=== PATIENT | female | born 1955 | race Caucasian/White ===

== ENCOUNTER 2024-11-05 09:42 | Inpatient (IN) | payer MEDICARE, MEDICAID ==
[~2024-11-05] VITALS: Ht 172.7 cm; Wt 92.7 kg
[~2024-11-05 09:42] MED LIST: ASPI81CH43 GT; ASPI81CH59 PO; ATEN-60 OR; ATEN25TA PO; BUDE160A3 IN; CARI-579 PO; CYAN100088 PO; CYCL-181 GT; EVOL140I2 SC; FURO40TA4 OR; GAB100C PO; GLYB5TAB8 PO; HYDR-1421 OR; IBUP-1455 PO; IBUP-1456 OR; INSU1INJ19 SC; LORA2TAB89 OR; MAGN400T6 PO; MET50T PO; METF-372 PO; OMEP1CAP70 PO; OMEP20TA37 OR; POTA-180 PO; TIRZ12.5 SC; VARE1TAB11 PO
--- NOTE | 2024-11-05 09:48 | ED.PDOC ---
History of Present Illness HPI Comments 69 y.o female with PMHx of COPD, CHF, pulmonary edema, DM, HTN, presents to the ED via EMS for a chief complaint of ongoing generalized weakness. Patient is unable to recall when weakness presented but does mention recently unable to ambulate without assistance. Patient denies any chest pain, SOB, fever, chills, or dysuria. Time Seen by MD: 09:43 Reviewed Notes: Nurses Notes, Rolled Glass Crosscutter Notes, Medications, Allergies Allergies: Coded Allergies: NO KNOWN ALLERGIES (Unverified , 01/30/10) Home Meds Reported Medications Furosemide (Furosemide) 40 Mg Tab, 40 MG OR QAM 12/24/11 Aspirin (Asa) 81 Mg Ch, 81 MG GT QAM 12/24/11 Ibuprofen (Ibuprofen) 800 Mg Tab, 800 MG OR HS 12/24/11 Hydrocodone-Acetaminophen (Vicodin) 1 Tab Tab, 1 TAB OR Q4HP 01/31/10 Lorazepam (Ativan) 2 Mg Tab, 2 MG OR PRN 01/31/10 Cyclobenzaprine Hcl (Flexeril) 10 Mg Tb, 10 MG GT PRN 01/31/10 Budesonide-Formoterol Fumarate (Symbicort) 1 Aer Aer, 1 AER IN PRN 01/31/10 Omeprazole (Sm Omeprazole) 20 Mg Tab, 20 MG OR BID 01/31/10 Atenolol (Atenolol) 25 Mg Tab, 25 MG OR BID 01/31/10 Information Source: Patient, Emergency Med Personnel Mode of Arrival: EMS Severity: Moderate Timing: Came on: Gradually Duration: Since onset Past Medical History PAST MEDICAL HISTORY: CHF, COPD, DM, HTN GILL NET 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 History: No Pertinent GILL NET STRINGER History Family History Family History: Reviewed,noncontributory to illness Social History Smoker: Non-Smoker Alcohol: Denies ETOH Use Drugs: Denies Drug Use Lives In: Home Constitutional: reports: weakness; denies: chills, diaphoresis, fatigue, fever, malaise, sweats, others EENTM: denies: blurred vision, double vision, ear bleeding, ear discharge, ear drainage, ear pain, ear ringing, eye pain, eye redness, hearing loss, mouth pain, mouth swelling, nasal discharge, nose bleeding, nose congestion, nose pain, photophobia, tearing, throat pain, throat swelling, voice changes, others Respiratory: denies: cough, hemoptysis, orthopnea, SOB at rest, shortness of breath, SOB with excertion, stridor, wheezing, others Cardiovascular: denies: chest pain, dizzy spells, diaphoresis, Dyspnea on exertion, edema, irregular heart beat, left arm pain, lightheadedness, palpitations, PND, syncope, others Gastrointestinal: denies: abdomen distended, abdominal pain, blood streaked bowels, constipated, diarrhea, dysphagia, difficulty swallowing, hematemesis, melena, nausea, poor appetite, poor fluid intake, rectal bleeding, rectal pain, vomiting, others Genitourinary: denies: abnormal vagina bleeding, burning, dyspareunia, dysuria, flank pain, frequency, hematuria, incontinence, pain, , vagina discharge, urgency, others Neurological: denies: dizziness, fainting, headache, left sided numbness, left sided weakness, numbness, paresthesia, pre-existing deficit, right sided numbness, right sided weakness, seizure, speech problems, tingling, tremors, weakness, others Musculoskeletal: denies: back pain, gout, joint pain, joint swelling, muscle pain, muscle stiffness, neck pain, others Integumetry: denies: bruises, change in color, change in hair/nails, dryness, laceration, lesions, lumps, rash, wounds, others Allergic/Immunocompromised: denies: Difficulty Healing, Frequent Infections, Hives, Itching, others Hematologic/Lymphatic: denies: anemia, blood clots, easy bleeding, easy bruising, swollen glands, others Endocrine: denies: excessive hunger, excessive sweating, excessive thirst, excessive urination, flushing, intolerance to cold, intolerance to heat, unexplained weight gain, unexplained weight loss, others Psychiatric: denies: anxiety, bipolar disorder, depression, hopeless, panic disorder, schizophrenia, sleepless, suicidal, others All Other Systems: Reviewed and Negative Physical Exam General Appearance: Moderate Distress HEENT: Normal ENT Inspection, Pharynx Normal, TMs Normal Neck: Full Range of Motion, Non-Tender, Normal, Normal Inspection Respiratory: Other (Coarse breath sounds) Cardiovascular: No Edema, No JVD, No Murmur, No Gallop, Normal Peripheral Pulses, Tachycardia Breast Exam: Deferred Gastrointestinal: No Organomegaly, Non Tender, No Pulsatile Mass, Normal Bowel Sounds, Soft Genitalia: Deferred Pelvic: Deferred Rectal: Deferred Extremities: No calf tenderness, No pedal edema Musculoskeletal : Apperance: Normal Neurologic: Alert, No Motor Deficits, No Sensory Deficits Cerebellar Function: NOT DONE Reflexes: NOT DONE Skin: Dry, Normal Color, Warm Peripheral Pulses: 3+ Radial (R), 3+ Radial (L) Lymphatic: No Adenopathy Was a procedure done? Was a procedure done?: No EKG EKG : Pulse Rate (adult): 119 Cardiac Rhythm: ST Differential Dx Considerations may include: Sepsis, UTI, Pneumonia, Dehydration, Electrolyte imbalance X-Ray, Labs, Meds, VS Vital Signs Date Time Temp Pulse Resp B/P (MAP) Pulse Ox O2 Delivery O2 Flow Rate FiO2 11/05/24 09:56 97.6 122 14 119/90 (100) 100 97.6 Lab Test 11/05/24 10:25 11/05/24 10:15 11/05/24 09:55 Range/Units White Blood Count Pending Red Blood Count Pending Hemoglobin Pending Hematocrit Pending Mean Corpuscular Volume Pending Mean Corpuscular Hemoglobin Pending Mean Corpuscular Hemoglobin Concent Pending Red Cell Distribution Width Pending Platelet Count Pending Mean Platelet Volume Pending Neutrophils (%) (Auto) Pending Lymphocytes (%) (Auto) Pending Monocytes (%) (Auto) Pending Basophils (%) (Auto) Pending Neutrophils # (Auto) Pending Lymphocytes # (Auto) Pending Monocytes # (Auto) Pending Sodium Level Pending Potassium Level Pending Chloride Level Pending Carbon Dioxide Level Pending Anion Gap Pending Blood Urea Nitrogen Pending Creatinine Pending Glomerular Filtration Rate Calc Pending BUN/Creatinine Ratio Pending Serum Glucose Pending Lactic Acid Level Pending Calcium Level Pending Troponin I High Sensitivity Pending B-Type Natriuretic Peptide Pending Urine Color Yellow Yellow Urine Clarity Clear Clear Urine pH 5.5 5.0-9.0 Urine Specific [place] 1.021 1.001-1.035 Urine Protein Trace H Negative Urine Ketones Trace Negative Urine Blood Negative Negative /uL Urine Nitrite Negative Negative Urine Bilirubin Negative Negative Urine Urobilinogen Normal Negative mg/dL Urine Leukocyte Esterase Negative Negative /uL Urine RBC None seen 0 - 4 /hpf Urine Microscopic WBC 1 0-5 /HPF Urine Squamous Epithelial Cells None seen <5 /hpf Urine Bacteria None seen None Seen /hpf Urine Hyaline Casts Mod 0 - 2 /lpf Urine Glucose 3+ H Normal mg/dL POC Glucose 496 *H 70-106 mg/dl Current Medications Medications (Trade) Dose Ordered Sig/Purvi Route Start Time Stop Time Status Last Admin Piperacillin Sod/ Tazobactam Sod 100 ml @ 100 mls/hr ONCE ONCE IV 11/05/24 09:45 11/05/24 10:44 11/05/24 10:23 Sodium Chloride 1,000 ml @ 1,000 mls/hr Q1H ONCE IV 11/05/24 09:45 11/05/24 10:44 11/05/24 10:16 Insulin Human Regular (InsuLIN R) 10 units ONCE ONCE IV 11/05/24 10:15 11/05/24 10:16 DC 11/05/24 10:19 Patient alert. Blood sugar elevated. Tachycardia. Placed on oxygen. Sepsis protocol. Was given Zosyn. Establish intravenous access. Was given fluids. History of CHF. Monitor carefully. EKG does show tachycardia. Was given insulin. Reviewed her history. Explained to the patient. Continue monitoring. Time of 1ST Reevaluation: 09:48 Reevaluation 1ST: Unchanged Patient Education/Counseling: Diagnosis, Treatment, Prognosis Family Education/Counseling: No Family Present Departure 1 Departure Time of Disposition: 10:39 Impression: Primary Impression: Sepsis Qualified Codes: A41.9 - Sepsis, unspecified organism Additional Impression: Pneumonia Qualified Codes: J18.9 - Pneumonia, unspecified organism Disposition: ADMITTED INPATIENT Admit to: Med Surg Condition: Guarded Critical Care Note Critical Care Time?: Yes (90 min-critical care time only) Critical care comment: Placed on oxygen Stability Stability form required: No I personally scribed for TRES MARKS MD ([email or web address]) on 11/05/24 at 09:48. Electronically submitted by Adelina Patricio ([facility]). TERS MARKS MD Nov 05, 2024 09:48
--- NOTE | 2024-11-05 10:02 | ECG ---
[facility] Test Date: 2024-11-05 Test Time: 09:43:24 Pat Name: LORENA PFEIFFER Department: ED Room: 0294 Gender: F Clinical Nurse Leader: gp : [phone] Requested By: TRES MARKS Order Number: [id number] Reading MD: Stuart Kay Measurements Intervals [place] Rate: 119 P: 0 MS: 0 QRS: 21 QRSD: 96 T: 40 QT: 318 QTc: 448 Interpretive Statements Atrial fibrillation Artifact in lead(s) I,aVF,V1,V2,V3,V4,V5,V6 Electronically Signed On 11-08-2024 12:56:32 PDT by Stuart Kay Please click the below link to view image of tracing.
[2024-11-05] MEDS: SODIUM CHLORIDE 0.9% 1,000 ML IV ONE ×2 (10:16→11:29)
[2024-11-05] MEDS: InsuLIN REG 1unit/0.01ml Soln (100units/ml) IV ONE (10:19)
[2024-11-05 10:21] LABS: Urine Bacteria None Seen /hpf (None Seen)
[2024-11-05] MEDS: PIPERACILLIN-TAZOB 3.375GM 100 ML IV ONE (10:23)
[2024-11-05 10:30] LABS: Urine Blood Negative /uL (Negative); Urine Clarity Clear (Clear); Urine Color Yellow (Yellow); Urine Hyaline Cast MOD /lpf (0 - 2); Urine Protein, UAD TRACE (Negative); Urine Specific Gravity 1.021 (1.001-1.035); Urine Squamous Epithelial Cell None Seen /hpf (<5); Urine Urobilinogen Normal (Negative); Urine WBC 1 /HPF (0-5); Urine pH 5.5 (5.0-9.0)
[2024-11-05 10:40] VITALS: PULSE 120; RESP 28; O2SAT 96
[2024-11-05 10:40] LABS: Basophils # (auto) 0.1 10 ^3/uL (0-0.2); Basophils % (auto) 0.2 % (0.0-2.0); Eosinophils # (auto) 0 10 ^3/uL (0-0.8); Hematocrit 46.2 % (36.0-46.0); Hemoglobin 15.6 g/dL (12.2-16.2); Lymphocytes # (auto) 1.1 10 ^3/uL (0.4-5.4); Lymphocytes % (auto) 4.3 % (10.0-50.0); Mean Corpuscular Hgb Conc. 33.8 g/dL (32.0-36.0); Mean Corpuscular Volume 91.9 fL (80.0-100.0); Monocytes # (auto) 0.5 10 ^3/uL (0-1.3); Monocytes % (auto) 2.1 % (0.0-12.0); Neutrophils # (auto) 23.6 10 ^3/uL (1.6-8.6); Neutrophils % (auto) 93.4 % (37.0-80.0); Nucleated Red Blood Cells % 0.1 %; Platelet Count (auto) 379 10^3/uL (140-450); Red Blood Cells 5.03 10^6/uL (4.0-5.20); Red Cell Distribution Width 13.6 % (11.8-14.3); White Blood Cell 25.3 10^3/uL (4.4-10.8)
[2024-11-05 10:47] LABS: Potassium 3.7 mmol/L (3.5-5.1)
[2024-11-05 10:48] LABS: Anion Gap 14 (5-15); Carbon Dioxide 23 mmol/L (20-31)
[2024-11-05 10:49] LABS: Calcium 9.9 mg/dL (8.7-10.4)
[2024-11-05 10:54] LABS: BUN/Creatinine Ratio 35.7 (10.0-20.0)
[2024-11-05 10:58] LABS: Chloride 93 mmol/L (98-107); Lactic Acid w/Reflex 3.9 mmol/L (0.4-2.0); Sodium 130 mmol/L (136-145)
[2024-11-05 10:59] LABS: Blood Urea Nitrogen 60 mg/dL (9-23); Glucose 489 mg/dL (74-106)
[2024-11-05] MEDS ORDERED: INSULIN LANTUS (GLARGINE) 1 /0.01ml (100units/ml) SC ONE (11:00)
[2024-11-05] MEDS ORDERED: INSULIN DRIP 100 UNIT/100ML 100 ML IV SCH (11:00)
[2024-11-05] MEDS ORDERED: DEXTROSE (50%) 50ML SYRG IV PRN ×2 (11:00→11:30)
[2024-11-05] MEDS: AZITHROMYCIN 500MG/ 250ML 250 ML IV ONE (11:22)
[2024-11-05] MEDS ORDERED: ACCU-CHEK COMFORT CURVE STRIP VI SCH (12:00)
[2024-11-05] MEDS: ACCU-CHEK COMFORT CURVE STRIP VI SCH (12:16)
--- NOTE | 2024-11-05 12:19 | DVH ---
CHEST RADIOGRAPH Indication: sob Technique: Single frontal view of the chest was obtained COMPARISON: None FINDINGS: Lines and Tubes: None Lungs: Mild bilateral patchy airspace disease. Pleura: No effusion. No pneumothorax. Cardiomediastinal contours: Enlarged Bones: Cervical fixation hardware. IMPRESSION: 1. Mild diffuse pulmonary edema with multifocal pneumonia not excluded.
[2024-11-05] MEDS: InsuLIN REG 1unit/0.01ml Soln (100units/ml) SC SCH (12:20)
[2024-11-05] MEDS: HYDROcodone-ACET 10/325MG TAB PO ONE (13:13)
[2024-11-05] MEDS ORDERED: HYDROcodone-ACET 5/325MG TAB PO PRN (14:15)
[2024-11-05] MEDS: ENOXAPARIN SOD 40 MG/0.4 ML SYRINGE SC SCH (14:17)
[2024-11-05] MEDS ORDERED: NITROGLYCERIN 0.4 MG SL TAB SL PRN (14:30)
[2024-11-05] MEDS ORDERED: MORPHINE SULFATE INJ 2 MG/ml SYRG IV PRN (14:30)
[2024-11-05] MEDS ORDERED: ATOR40TA52 PO (15:38)
[2024-11-05] MEDS ORDERED: LOS25T PO (15:38)
--- NOTE | 2024-11-05 15:39 | DVHHP2 ---
History of Present Illness Reason for Visit: Diabetic ketoacidosis History of Present Illness Patient Patient is a 69 year old female who presented to the ED via EMS with chief complaint of generalized weakness and nausea. Patient denies chest pain, shortness of breath, fever, chills, dysuria. Patient was tachycardic upon ar rival, with negative troponins. Patient was recently admitted to [facility] 2 weeks prior to this admission for chest pain and shortness of breath, patient had echocardiogram at that time which showed EF 65%, normal RV size and function, AV and MV no significant or MS. Trace TR, 35 mmHg. With trivial pericardial effusion. Last Lexiscan 03/12/2021 which showed normal LV perfusion with an EF of 56%. Patient's blood sugars were also running high on her last admission at [facility], but she was also on steroids at that time. Patient is being admitted to telemetry for diabetic ketoacidosis. Past Medical History COPD, diabetes mellitus, peripheral neuropathy, hypertension, hyperlipidemia, COPD, diverticulosis, kidney stones, migraine, MINOO, GERD Past Surgical History Hysterectomy Family History Denies Smoke: Quit ALCOHOL: none Drugs: None Lives: Other (Home) Review of Systems Constitutional: Yes: Weakness (Generalized); No: Fever, Chills, Sweats, Malaise, Other Eyes: No: Pain, Vision change, Conjunctivae inflammation, Eyelid inflammation, Other, Redness ENT: No: Ear pain, Ear discharge, Nose pain, Nose discharge, Nose congestion, Mouth pain, Mouth swelling, Throat pain, Throat swelling, Other Respiratory: No: Cough, Dry, Shortness of breath, SOB with excertion, Wheezing, Hemoptysis, Pleuritic Pain, Sputum, Wheezing, Other Cardiovascular: No: Chest Pain, Palpitations, Orthopnea, Paroxysmal Noc. Dyspnea, Edema, Lt Headedness, Other Gastrointestinal: Nausea; No: Vomiting, Abdominal Pain, Diarrhea, Constipation, Melena, Hematochezia, Other Genitourinary: No Dysuria, No Frequency, No Incontinence, No Hematuria, No Retention, No Other Musculoskeletal: leg pain (Bilateral lower extremity pain); No: other, neck pain, shoulder pain, arm pain, back pain, hand pain, foot pain Skin: No: Rash, Lesions, Jaundice, Bruising, Other Neurological: No: Weakness, Numbness, Incoordination, Change in speech, Confusion, Seizures, Other Allergies: Coded Allergies: NO KNOWN ALLERGIES (Unverified , 01/30/10) Medications Current Medications Medications Dose Ordered Sig/Purvi Route Start Time Stop Time Status Last Admin Dose Admin Diagnostic Test (Pha) 1 strip IQ4HR 11/05/24 12:00 11/05/24 12:16 1 STRIP Insulin Human Regular IQ4HR SC 11/05/24 12:00 11/05/24 12:20 16 UNITS Dextrose 50 ml UD PRN IV 11/05/24 11:30 Enoxaparin Sodium 40 mg DAILY SC 11/05/24 14:15 11/05/24 14:17 40 MG Morphine Sulfate 2 mg Q4HPRN PRN IV 11/05/24 14:15 Ondansetron HCl 4 mg Q4HPRN PRN IV 11/05/24 14:15 Acetaminophen/ Hydrocodone Bitart 1 tab Q6HPRN PRN PO 11/05/24 14:15 Nitroglycerin 0.4 mg Q5MINP PRN SL 11/05/24 14:30 Morphine Sulfate 2 mg Q30M PRN IV 11/05/24 14:30 Exam Vital Signs Vital Signs Date Time Temp Pulse Resp B/P (MAP) Pulse Ox O2 Delivery O2 Flow Rate FiO2 11/05/24 14:00 98.6 116 25 120/68 (85) 99 98.6 11/05/24 10:40 Nasal Cannula* 6 44 General Appearance: Alert, Oriented X3, Cooperative, No acute distress HEENT: Atraumatic, PERRLA, EOMI, Mucous membr. moist/pink Respiratory: Clear to auscultation, Normal air movement Cardiovascular: Regular rate, Normal S1, Normal S2, No murmurs Abdominal: Normal bowel sounds, Soft, No tenderness, No hepatospenomegaly, No masses Extremities: No clubbing, No cyanosis, No edema, Normal pulses, Other (Lower extremity pain from neuropathy) Skin: No rashes, No breakdown, No significant lesion Neuro: Normal gait, Normal speech, Strength at 5/5 X4 ext, Normal tone, Sensation intact, Cranial nerves 3-12 NL, Reflexes 2+ Psych/Mental Status: Mental status NL, Mood NL Labs/Xrays Labs and imaging reviewed Labs Test 11/05/24 13:02 11/05/24 12:15 11/05/24 10:25 11/05/24 10:15 Range/Units Lactic Acid Level 2.9 *H 0.4-2.0 mmol/L Troponin I High Sensitivity 28 </=34 ng/L POC Glucose 334 H 70-106 mg/dl White Blood Count 25.3 H 4.4-10.8 10^3/uL Red Blood Count 5.03 4.0-5.20 10^6/uL Hemoglobin 15.6 12.2-16.2 g/dL Hematocrit 46.2 H 36.0-46.0 % Mean Corpuscular Volume 91.9 80.0-100.0 fL Mean Corpuscular Hemoglobin 31.0 28.0-32.0 pg Mean Corpuscular Hemoglobin Concent 33.8 32.0-36.0 g/dL Red Cell Distribution Width 13.6 11.8-14.3 % Platelet Count 379 140-450 10^3/uL Mean Platelet Volume 9.1 6.9-10.8 fL Neutrophils (%) (Auto) 93.4 H 37.0-80.0 % Lymphocytes (%) (Auto) 4.3 L 10.0-50.0 % Monocytes (%) (Auto) 2.1 0.0-12.0 % Eosinophils (%) (Auto) 0.0 0.0-7.0 % Basophils (%) (Auto) 0.2 0.0-2.0 % Neutrophils # (Auto) 23.6 H 1.6-8.6 10 ^3/uL Lymphocytes # (Auto) 1.1 0.4-5.4 10 ^3/uL Monocytes # (Auto) 0.5 0-1.3 10 ^3/uL Eosinophils # (Auto) 0 0-0.8 10 ^3/uL Basophils # (Auto) 0.1 0-0.2 10 ^3/uL Nucleated Red Blood Cells 0.1 % Sodium Level 130 L 136-145 mmol/L Potassium Level 3.7 3.5-5.1 mmol/L Chloride Level 93 L 98-107 mmol/L Carbon Dioxide Level 23 20-31 mmol/L Anion Gap 14 5-15 Blood Urea Nitrogen 60 H 9-23 mg/dL Creatinine 1.68 H 0.550-1.02 mg/dL Glomerular Filtration Rate Calc 33 >90 mL/min BUN/Creatinine Ratio 35.7 H 10.0-20.0 Serum Glucose 489 *H 74-106 mg/dL Calcium Level 9.9 8.7-10.4 mg/dL B-Type Natriuretic Peptide 177.86 0-100 pg/mL Beta-Hydroxybutyric Acid 3.541 H < 0.4 mmol/L Urine Color Yellow Yellow Urine Clarity Clear Clear Urine pH 5.5 5.0-9.0 Urine Specific [place] 1.021 1.001-1.035 Urine Protein Trace H Negative Urine Ketones Trace Negative Urine Blood Negative Negative /uL Urine Nitrite Negative Negative Urine Bilirubin Negative Negative Urine Urobilinogen Normal Negative mg/dL Urine Leukocyte Esterase Negative Negative /uL Urine RBC None seen 0 - 4 /hpf Urine Microscopic WBC 1 0-5 /HPF Urine Squamous Epithelial Cells None seen <5 /hpf Urine Bacteria None seen None Seen /hpf Urine Hyaline Casts Mod 0 - 2 /lpf Urine Glucose 3+ H Normal mg/dL Assessment/Plan Assessment/Plan Diabetic ketoacidosis Lactic acid trending down Anion gap 14 Blood sugars now in the 300s Accu-Cheks q.4 hours on aggressive scale x 12 hrs IV fluids Replace potassium p.r.n. Monitor I&Os/Stauffer in place Acute on chronic hypoxic respiratory failure/COPD Continue supplemental oxygen to keep SpO2 greater than 90% Nebulized meds p.r.n. Pulmonary edema versus pneumonia On antibiotics Rule out sepsis Blood cultures pending UA negative Sinus tachycardia Consult patient's telephone station repairer/Ana/Long Repeated EKG/sinus tach with PACs Resume patient's home medications Plan discussed with: Patient My Orders Orders - MADDIE RHODES Procedure Category Date Status Time Electrocardigram EKG 11/05/24 Logged 14:07 *Consult Dr. Eli CONS 11/05/24 Transmitted Long 14:09 Enoxaparin Sodium PHA 11/05/24 In Process (Lovenox) 14:15 Morphine Sulfate PHA 11/05/24 In Process Injection 14:15 Ondansetron Hcl PHA 11/05/24 In Process (Zofran) 14:15 Hydrocodone-Acet PHA 11/05/24 In Process 5/325mg Tab ([place] 14:15 Admit ADMIT 11/05/24 Transmitted 14:29 Nitroglycerin PHA 11/05/24 In Process Sublingual (Ntrostat 14:30 Morphine Sulfate PHA 11/05/24 In Process Injection 14:30 Stat Ekg For Chest [facility] 11/05/24 In Process Pain 14:29 Notify Md Of Changes [facility] 11/05/24 In Process From Base 14:29 Punchboard Filling Machine Operator For [facility] 11/05/24 In Process 24 Hours 14:29 Emergency Dysrhythmia [facility] 11/05/24 In Process Protocol 14:29 Rhythm Strips Once KAVON 11/05/24 In Process Every Shift 14:29 Oxygen By Nasal RT 11/05/24 Transmitted Cannula 14:29 Full Liq Diet DIET 11/05/24 Transmitted Dinner Date of Service: Nov 05, 2024 Billing Provider: MADDIE RHODES Common Visit Codes: [id number] INP/OBS CARE (HIGH) MADDIE RHODES Nov 05, 2024 15:39
[2024-11-05] MEDS: METOPROLOL TARTRATE 50 MG TAB PO SCH (15:57)
[2024-11-05 20:00] VITALS: PULSE 120; RESP 28; O2SAT 96
[2024-11-05] MEDS: ONDANSETRON HCL 4 MG/2 ML VIAL IV PRN (20:37)
[2024-11-05] MEDS: MORPHINE SULFATE INJ 2 MG/ml SYRG IV PRN (20:46)
[2024-11-05] MEDS: PIPERACILLIN-TAZOB 3.375GM 100 ML IV SCH (22:31)
[2024-11-05 23:06] VITALS: BP 103/54; PULSE 93; RESP 18; TEMP 97.2; O2SAT 99
[2024-11-06] VITALS (8 sets, daily range): BP systolic 103–138; BP diastolic 49–68; PULSE 67–103; RESP 15–32; TEMP 97.1–99.6; O2SAT 90–97
[2024-11-06] MEDS: AZITHROMYCIN 500MG/ 250ML 250 ML IV SCH (07:59)
[2024-11-06] MEDS: PANTOPRAZOLE 40 MG/10 ML VIAL INJ IV SCH (09:28)
--- NOTE | 2024-11-06 09:53 | DVHINCON2 ---
Date of service: Nov 06, 2024 History of Present Illness HPI Patient is a 69-year-old female who was brought to the hospital for generalized weakness/nausea and inability to ambulate without assistance. Patient was recently (few weeks ago) in [facility] where she was treated for pneumonia and COPD exacerbation. Since arrival, the patient was found to be feverish with leukocytosis (shift to the left). She also was having tachycardia. She is admitted with pneumonia/sepsis/diabetic ketoacidosis. Cardiology is involved for cardiac aspects of care. Patient is known to our practice from outside and before. Patient denies any chest pains. She denies orthopnea/PND. Home Meds Reported Medications Atorvastatin Calcium (ATORVASTATIN CALCIUM) 40 Mg Tab, 1 TAB PO DAILY 11/05/24 Losartan Potassium (Losartan Potassium) 25 Mg Tab, 1 TAB PO DAILY 11/05/24 Furosemide (Furosemide) 40 Mg Tab, 40 MG OR QAM 12/24/11 Aspirin (Asa) 81 Mg Ch, 81 MG GT QAM 12/24/11 Ibuprofen (Ibuprofen) 800 Mg Tab, 800 MG OR HS 12/24/11 Hydrocodone-Acetaminophen (Vicodin) 1 Tab Tab, 1 TAB OR Q4HP 01/31/10 Lorazepam (Ativan) 2 Mg Tab, 2 MG OR PRN 01/31/10 Cyclobenzaprine Hcl (Flexeril) 10 Mg Tb, 10 MG GT PRN 01/31/10 Budesonide-Formoterol Fumarate (Symbicort) 1 Aer Aer, 1 AER IN PRN 01/31/10 Omeprazole (Sm Omeprazole) 20 Mg Tab, 20 MG OR BID 01/31/10 Atenolol (Atenolol) 25 Mg Tab, 25 MG OR BID 01/31/10 Past Medical History Others Past medical history includes morbid obesity, diabetes mellitus, hypertension, hyperlipidemia, peripheral neuropathy, COPD, history of diverticulosis, depression, kidney stones, migraines, obstructive sleep apnea (on CPAP as outpatient), GERD, history of carpal tunnel disease, osteoporosis and questionable history of diastolic heart failure. She smokes cigarettes actively. She does have history of hysterectomy. Patient Family History: Chronic obstructive pulmonary disease G8 MOTHER FH: CHF (congestive heart failure) G8 FATHER FH: atrial fibrillation G8 FATHER Smoker: Positive Alocohol: None Review of Systems Constitutional: Chills, Diaphoresis, Fever, Malaise Ears, Nose, & Throat: No symptom reported Eyes: No symptom reported All Other Systems Fourteen point review of system was performed. Relevant findings as per Pulmonary as per HPI. Otherwise negative. H&P Exam Vital Signs Vital Signs Date Time Temp Pulse Resp B/P (MAP) Pulse Ox O2 Delivery O2 Flow Rate FiO2 11/06/24 09:27 88 109/67 11/06/24 08:00 16 Nasal Cannula* 2 28 11/06/24 05:00 97.3 95 97.3 General Appeara: Obese Head Exam: Normal inspection Eye Exam: bilateral eye PERRL Nasal Exam: Normal inspection Mouth: Normal Inspection Pulmonary/Respiratory: Rhonci Cardiovascular/Chest: Normal Rhythm, Systolic murmur Peripheral Pulses: 2+ carotid (R), 2+ carotid (L), 2+ femoral (R), 2+ femoral (L), 2+ dorsalis pedis (R), 2+ dorsalis pedis (L), 2+ Radial (R), 2+ Radial (L) Abdominal Exam: Normal bowel sounds, Soft Neuro/Mental St: Alert Appearance: Appropriate appearance Eye contact/ Speech: Cooperative Labs/Xrays Labs Test 11/06/24 08:01 11/05/24 16:56 11/05/24 13:02 11/05/24 10:25 Range/Units POC Glucose 134 H 70-106 mg/dl Lactic Acid Level 1.7 0.4-2.0 mmol/L Troponin I High Sensitivity 28 </=34 ng/L White Blood Count 25.3 H 4.4-10.8 10^3/uL Red Blood Count 5.03 4.0-5.20 10^6/uL Hemoglobin 15.6 12.2-16.2 g/dL Hematocrit 46.2 H 36.0-46.0 % Mean Corpuscular Volume 91.9 80.0-100.0 fL Mean Corpuscular Hemoglobin 31.0 28.0-32.0 pg Mean Corpuscular Hemoglobin Concent 33.8 32.0-36.0 g/dL Red Cell Distribution Width 13.6 11.8-14.3 % Platelet Count 379 140-450 10^3/uL Mean Platelet Volume 9.1 6.9-10.8 fL Neutrophils (%) (Auto) 93.4 H 37.0-80.0 % Lymphocytes (%) (Auto) 4.3 L 10.0-50.0 % Monocytes (%) (Auto) 2.1 0.0-12.0 % Eosinophils (%) (Auto) 0.0 0.0-7.0 % Basophils (%) (Auto) 0.2 0.0-2.0 % Neutrophils # (Auto) 23.6 H 1.6-8.6 10 ^3/uL Lymphocytes # (Auto) 1.1 0.4-5.4 10 ^3/uL Monocytes # (Auto) 0.5 0-1.3 10 ^3/uL Eosinophils # (Auto) 0 0-0.8 10 ^3/uL Basophils # (Auto) 0.1 0-0.2 10 ^3/uL Nucleated Red Blood Cells 0.1 % Sodium Level 130 L 136-145 mmol/L Potassium Level 3.7 3.5-5.1 mmol/L Chloride Level 93 L 98-107 mmol/L Carbon Dioxide Level 23 20-31 mmol/L Anion Gap 14 5-15 Blood Urea Nitrogen 60 H 9-23 mg/dL Creatinine 1.68 H 0.550-1.02 mg/dL Glomerular Filtration Rate Calc 33 >90 mL/min BUN/Creatinine Ratio 35.7 H 10.0-20.0 Serum Glucose 489 *H 74-106 mg/dL Calcium Level 9.9 8.7-10.4 mg/dL B-Type Natriuretic Peptide 177.86 0-100 pg/mL Beta-Hydroxybutyric Acid 3.541 H < 0.4 mmol/L Test 11/05/24 10:15 Range/Units Urine Color Yellow Yellow Urine Clarity Clear Clear Urine pH 5.5 5.0-9.0 Urine Specific Melfa 1.021 1.001-1.035 Urine Protein Trace H Negative Urine Ketones Trace Negative Urine Blood Negative Negative /uL Urine Nitrite Negative Negative Urine Bilirubin Negative Negative Urine Urobilinogen Normal Negative mg/dL Urine Leukocyte Esterase Negative Negative /uL Urine RBC None seen 0 - 4 /hpf Urine Microscopic WBC 1 0-5 /HPF Urine Squamous Epithelial Cells None seen <5 /hpf Urine Bacteria None seen None Seen /hpf Urine Hyaline Casts Mod 0 - 2 /lpf Urine Glucose 3+ H Normal mg/dL Assessment/Plan Plan Patient is a 69-year-old female who was brought to the hospital for generalized weakness/nausea and inability to ambulate without assistance. Patient was recently (few weeks ago) in [facility] where she was treated for pneumonia and COPD exacerbation. Since arrival, the patient was found to be feverish with leukocytosis (shift to the left). She also was having tachycardia. She is admitted with pneumonia/sepsis/diabetic ketoacidosis. Cardiology is involved for cardiac aspects of care. Patient is known to our practice from outside and before. Patient denies any chest pains. She denies orthopnea/PND. Obese female, not in acute distress. Lying flat in bed. No JVD. Not using accessory muscles of breathing. No carotid bruit. Scattered rhonchi in the lungs is heard. Cardiac: Regular, no thrill/gallop. Systolic murmur 2/6 in apex is heard. Abdomen is soft and obese. Bowel sound is positive. There is no gross mass/hepatomegaly. Extremities reveal 2+ edema bilaterally. Past medical history includes morbid obesity, diabetes mellitus, hypertension, hyperlipidemia, peripheral neuropathy, COPD, history of diverticulosis, depression, kidney stones, migraines, obstructive sleep apnea (on CPAP as outpatient), GERD, history of carpal tunnel disease, osteoporosis and questionable history of diastolic heart failure. She smokes cigarettes act ively. She does have history of hysterectomy. Nuclear stress test of February 2021 (performed in the office) revealed perfusion normal and ejection fraction of 56% Echocardiogram (performed in [facility]) of October 25, 2024 had revealed ejection fraction of 65%, trace TR and right ventricular systolic pressure of 36 mm Hg. WBC: 25.3 Creatinine: 1.68 Potassium: 3.7 Troponin (high sensitive): 23 - - 28 BNP: 177.86 Beta hydroxybutyrate: 3.541 Chest x-ray reported: IMPRESSION: 1. Mild diffuse pulmonary edema with multifocal pneumonia not excluded. EKG revealed sinus tachycardia with nonspecific ST-T changes Tele reveals sinus tachycardia Patient is a 69-year-old morbidly obese female who was brought to the hospital for altered mental status/generalized weakness. She is found to have sepsis. She does have leukocytosis with shift to the left. Was recently in another facility for sepsis also. Is found to have increased blood sugar with increased beta hydroxybutyrate. Is evaluated to have diabetic ketoacidosis most likely secondary to intercurrent infection/sepsis. Acute on chronic respiratory failure secondary to COPD exacerbation/pneumonia could have contributed to the clinical picture. Could the patient have component of acute on chronic diastolic heart failure? Acute respiratory failure on chronic respiratory failure Pneumonia, community-acquired COPD exacerbation Diabetic ketoacidosis Sepsis Morbid obesity Diabetes mellitus Hypertension Hyperlipidemia Cardiac suggestion for management: Managed on telemetry Follow-up electrolytes and kidney function tests and correct abnormalities Aspirin: 81 mg daily suggested Sepsis workup (dixon culture) and management of sepsis (antibiotics) as per primary team Request for Echocardiogram Consider Nephrology evaluation Further evaluation and management depends on the above and clinical course Thank you for consultation A total of 75 minutes was spent reviewing the patient record, examining the patient, making a diagnostic and therapeutic plan, discussing this plan with medical personnel, following up on diagnostic studies and following the patient for clinical stability excluding any and all procedures. At least 50% of this time was spent in direct, [id number] contact. Thank you for allowing me to participate in this patient's care. Further recommendations will depend on patient's clinical course. Please do not hesitate to contact me if you have any questions or concerns. This medical document was created using electronic medical record system with [employer] computerized dictation system. Although this document has been carefully reviewed, there may still be some phonetic and typographical errors. These areas are purely typographical due to the imperfection of the software programs, and do not reflect any compromise in the patient's medical care. Plan discussed with: Patient, Other (nurse) HARRY DORADO MD Nov 06, 2024 09:53
[2024-11-06] MEDS ORDERED: INSULIN LANTUS (GLARGINE) 1 /0.01ml (100units/ml) SC SCH ×2 (10:00→22:00)
[2024-11-06] MEDS: SODIUM CHLORIDE 0.9% 500 ML IV ONE (11:15)
[2024-11-06] MEDS ORDERED: ACETAMINOPHEN 325 MG TAB PO PRN (12:30)
[2024-11-06 12:48] LABS: Basophils # (auto) 0 10 ^3/uL (0-0.2); Basophils % (auto) 0.1 % (0.0-2.0); Eosinophils # (auto) 0 10 ^3/uL (0-0.8); Hematocrit 42.1 % (36.0-46.0); Hemoglobin 14.4 g/dL (12.2-16.2); Lymphocytes # (auto) 1.9 10 ^3/uL (0.4-5.4); Lymphocytes % (auto) 10.9 % (10.0-50.0); Mean Corpuscular Hemoglobin 30.7 pg (28.0-32.0); Mean Corpuscular Hgb Conc. 34.1 g/dL (32.0-36.0); Monocytes # (auto) 1.3 10 ^3/uL (0-1.3); Monocytes % (auto) 7.3 % (0.0-12.0); Neutrophils # (auto) 14.3 10 ^3/uL (1.6-8.6); Neutrophils % (auto) 81.7 % (37.0-80.0); Platelet Count (auto) 324 10^3/uL (140-450); Red Blood Cells 4.68 10^6/uL (4.0-5.20); Red Cell Distribution Width 13.6 % (11.8-14.3); White Blood Cell 17.5 10^3/uL (4.4-10.8)
--- NOTE | 2024-11-06 12:51 | ECG ---
[facility] Test Date: 2024-11-05 Test Time: 15:13:54 Pat Name: LORENA PFEIFFER Department: ED Room: 0294 Gender: F Director Payment: IKE : 1955 Requested By: MADDIE RHODES Order Number: [id number] Reading MD: Stuart Kay Measurements Intervals [place] Rate: 109 P: 0 MO: 118 QRS: 17 QRSD: 95 T: 44 QT: 340 QTc: 458 Interpretive Statements Sinus tachycardia Atrial premature complex Electronically Signed On 11-08-2024 12:57:56 PDT by Stuart Kay Please click the below link to view image of tracing.
[2024-11-06 13:00] LABS: Alanine Aminotransferase 19 U/L (7-40); Albumin 3.4 g/dL (3.2-4.8); Alkaline Phosphatase 75 U/L (46-116); Anion Gap 7 (5-15); Calcium 9.2 mg/dL (8.7-10.4); Carbon Dioxide 28 mmol/L (20-31); Chloride 101 mmol/L (98-107); Cholesterol 107 mg/dL (< 200); LDL Cholesterol 49 mg/dL (< 100); Total Protein 6.8 g/dL (5.7-8.2); Triglycerides 87 mg/dL (< 150)
[2024-11-06 13:01] LABS: Bilirubin, Total 0.4 mg/dL (0.2-1.0)
[2024-11-06 13:02] LABS: Aspartate Aminotransferase 70 U/L (13-40); Blood Urea Nitrogen 33 mg/dL (9-23); Glucose 175 mg/dL (74-106); HDL Cholesterol 36 mg/dL (40-59); Potassium 3.5 mmol/L (3.5-5.1); Sodium 136 mmol/L (136-145)
--- NOTE | 2024-11-06 16:13 | DVHPNRES ---
Progress Note Date Seen: Nov 06, 2024 Resident Creating Document: ELENA ESPINAL RESIDENT Has the PT tested + for MRSA If YES, has PT been informed?: No Medical Necessity Reason Pt with a Central, PICC or Fol: No Subjective Review of Systems A 69 year old female who presented to the ED via EMS with chief complaint of generalized weakness and nausea. Patient denies chest pain, shortness of breath, fever, chills, dysuria. Patient was tachycardic upon arrival, with negative troponins. Patient was recently admitted to [facility] 2 weeks prior to this admission for chest pain and shortness of breath, patient had echocardiogram at that time which showed EF 65%, normal RV size and function, AV and MV no significant or MS. Trace TR, 35 mmHg. With trivial pericardial effusion. Last Lexiscan 03/12/2021 which showed normal LV perfusion with an EF of 56%. Patient's blood sugars were also running high on her last admission at [facility], but she was also on steroids at that time. Patient is being admitted to telemetry for diabetic ketoacidosis. Pt states abdominal pain, no changes in the output of her colostomy, but the drainage is greenish Past Medical History COPD, diabetes mellitus, peripheral neuropathy, hypertension, hyperlipidemia, COPD, diverticulosis, kidney stones, migraine, MINOO, GERD Past Surgical History Hysterectomy colostomy 3y ago due to diverticulitis Smoke: Quit ALCOHOL: none Drugs: None Lives: Home Objective vital signs Vital Sign Date Time Temp Pulse Resp B/P (MAP) Pulse Ox O2 Delivery O2 Flow Rate FiO2 11/06/24 13:00 98.9 86 16 109/68 (82) 90 98.9 11/06/24 08:00 Nasal Cannula* 2 28 Total Intake and Output 11/05/24 11/05/24 11/06/24 15:00 23:00 07:00 Intake Total 1800 ml 150 ml 400 ml Output Total 200 ml Balance 1800 ml 150 ml 200 ml medications Current Medications Medications Dose Ordered Sig/Purvi Route Start Time Stop Time Status Last Admin Dose Admin Diagnostic Test (Pha) 1 strip IQ4HR 11/05/24 12:00 11/06/24 11:52 1 STRIP Insulin Human Regular IQ4HR SC 11/05/24 12:00 11/06/24 11:53 4 UNITS Dextrose 50 ml UD PRN IV 11/05/24 11:30 Enoxaparin Sodium 40 mg DAILY SC 11/05/24 14:15 11/06/24 09:27 40 MG Morphine Sulfate 2 mg Q4HPRN PRN IV 11/05/24 14:15 11/05/24 20:46 2 MG Ondansetron HCl 4 mg Q4HPRN PRN IV 11/05/24 14:15 11/05/24 20:37 4 MG Acetaminophen/ Hydrocodone Bitart 1 tab Q6HPRN PRN PO 11/05/24 14:15 Nitroglycerin 0.4 mg Q5MINP PRN SL 11/05/24 14:30 Morphine Sulfate 2 mg Q30M PRN IV 11/05/24 14:30 Metoprolol Tartrate 50 mg BID PO 11/05/24 15:45 11/06/24 09:27 50 MG Pantoprazole Sodium 40 mg DAILY IV 11/06/24 10:00 Azithromycin 250 ml @ 125 mls/hr DAILY IV 11/06/24 10:00 11/06/24 07:59 125 MLS/HR Piperacillin Sod/ Tazobactam Sod 100 ml @ 25 mls/hr Q12HR IV 11/05/24 22:00 11/06/24 09:28 25 MLS/HR Insulin Glargine 30 units HS SC 11/06/24 22:00 Acetaminophen 650 mg Q4HP PRN PO 11/06/24 12:30 Aspirin 81 mg DAILY PO 11/07/24 10:00 Examination General Appearance: Alert, Oriented X3, Cooperative, No acute distress HEENT: Atraumatic, PERRLA, EOMI, Mucous membr. dry Respiratory: Clear to auscultation, Normal air movement Cardiovascular: Regular rate, Normal S1, Normal S2, No murmurs Abdominal: colostomy with greenish drainage, generalized tenderness in the abdomen Extremities: No clubbing, No cyanosis, No edema, Normal pulses, Other (Lower extremity pain from neuropathy) Skin: No rashes, No breakdown, No significant lesion Neuro: Normal gait, Normal speech, Strength at 5/5 X4 ext, Normal tone, Sensation intact, Cranial nerves 3-12 NL, Reflexes 2+ Psych/Mental Status: Mental status NL, Mood NL laboratory and microbiology Laboratory Tests 11/06/24 11:55 Test 11/06/24 11:55 Range/Units Serum Glucose 175 H 74-106 mg/dL Microbiology Date/Time Source Procedure Growth Status 11/06/24 11:00 Stool Stool Culture - Preliminary Resulted 11/06/24 11:00 Stool Shiga Toxin I & II - Final Resulted 11/05/24 10:25 Blood Blood Culture - Preliminary NO GROWTH AFTER 24 HOURS OF INCUBATION. Resulted Problem List/Assessment/Plan Problem List/Assessment/Plan #Sepsis due to pneumonia gram+/gram neg #s/p colostomy #rule out abdominal abcess or abdominal sepsis #Acute respiratory failure on chronic respiratory failure #Acute on chronic diastolic heart failure? #COPD exacerbation #DKA resolved #Morbid obesity #Diabetes mellitus type 2 #Hypertension #Hyperlipidemia Full liquid diet Telemetry Zosyn IV Azithromycin Enoxaparin 40 mg SC Lantus 30 UI Moderate insulin sliding scale Protonix IV Metoprolol 50 mg PO IV fluids [address] scan of abdomen and pending ECHO Case discussed with Dr Morataya Plan discussed with: Patient, Other (rn) My Orders My Orders Orders - ELENA ESPINAL RESIDENT Procedure Category Date Status Time Insulin Lantus PHA 11/06/24 In Process (Glargine) (Lantus) 22:00 Stool Bacterial RENEE 11/06/24 In Process Culture 11:08 Acetaminophen Tablet PHA 11/06/24 In Process (Tylenol Tablet) 12:30 Aspirin Tablet PHA 11/07/24 In Process 10:00 Ct Ab Pel With Iv Con CT 11/06/24 Logged Only 13:13 Date of Service: Nov 06, 2024 Billing Provider: KAY MORATAYA MD Common Visit Codes: [id number] INP/OBS CARE(HIGH) ELENA ESPINAL RESIDENT Nov 06, 2024 16:13 KAY MORATAYA MD Nov 08, 2024 22:12
[2024-11-06] MEDS: ACCU-CHEK COMFORT CURVE STRIP VI SCH (17:18)
[2024-11-06] MEDS: InsuLIN REG 1unit/0.01ml Soln (100units/ml) SC SCH (17:19)
[2024-11-06] MEDS: INSULIN LANTUS (GLARGINE) 1 /0.01ml (100units/ml) SC SCH (21:36)
[2024-11-07] VITALS (8 sets, daily range): BP systolic 107–144; BP diastolic 51–80; PULSE 71–87; RESP 16–28; TEMP 97.6–99.2; O2SAT 92–100
--- NOTE | 2024-11-07 04:53 | DVH ---
Exam: CT CT AB PEL WITH IV CON ONLY History: rule out abcess sp colosotmy Comparison Study: None available at time of dictation. Contrast: Type of contrast: Contrast injected: Contrast wasted: 0 TECHNIQUE: CT of the abdomen pelvis performed with intravenous contrast from the lung bases to the pr oximal femurs using 100 cc of Omnipaque 350 intravenous contrast. Coronal sagittal reformatted images submitted. Radiation Dose Information: CT Dose: CTDI volume is 27.09 mGy. Dose-length product is 1339.32 mGy*cm FINDINGS: Lung Bases: Emphysema at the lung bases. Normal heart size. No pleural or pericardial effusion. Liver: The liver is normal in size. No focal lesions. Normal hepatic vascular enhancement. Gallbladder and Biliary Tree: Multiple gallstones. No intrahepatic or extrahepatic biliary ductal dil atation. Spleen: Unremarkable Pancreas: The pancreas is normal in appearance without focal lesions or abnormal enhancement. Adrenal Glands: Unremarkable Kidneys: Kidneys enhance symmetrically. 5 mm calculus in the lower pole of the right kidney. No hydro nephrosis. Bladder: Stauffer catheter in the urinary bladder. Bowel: The stomach is grossly normal in appearance. The small bowel is normal in caliber. There is a left lower quadrant colostomy. No bowel obstruction at the site of the colostomy. Normal appendix. Intraperitoneal cavity: No pneumoperitoneum. No ascites. Lymphadenopathy: No mesenteric, retroperitoneal or periportal lymphadenopathy. Abdominal Wall and Mesentery: Left lower quadrant colostomy. Vasculature: The visualized abdominal aorta is normal in size and caliber. Abdominal and pelvic vess els demonstrate normal enhancement. Pelvic Organs: Unremarkable Musculoskeletal: No aggressive focal bony lesions, acute fractures or dislocation. Multilevel lumbar spondylosis. Soft tissues: Unremarkable. IMPRESSION: 1. No acute abnormality in the abdomen or pelvis. 2. Left lower quadrant colostomy without obstruction or fluid collection. 3. Punctate nonobstructing right intrarenal calculus. All CT scans at this medical facility are performed using dose modulation techniques as appropriate t o a performed exam including the following: Automated exposure control was utilized; adjustment of th e MA and/or KV according to patient size; and use of iterative reconstruction technique.
--- NOTE | 2024-11-07 08:15 | DVHSR ---
APPROVED REPORT EXAM: LIMITED Two-dimensional and M-mode echocardiogram with Doppler and color Doppler. Blood Pressure: 96/[address] DORADO REQUEST RISK FACTORS Obesity: Height: 5'3, Weight: 204 DIMENSIONS LVDd4.5 (3.8-5.7cm)LA (2D) (1.9-4.0cm)Aortic Root3.3 (2.0-3.7cm) LVDs2.5 (2.5-4.0cm)LA (MM) (1.9-4.0cm)Aortic Cusp Exc1.1 (1.5-2.0cm) EF (%) 65.0 (55-70%)Rt. Atrium (1.9-4.0cm)Asc. Aorta cm IVSd0.9 (0.7-1.1cm)RV (D) (1.8-2.4cm) PWd0.8 (0.7-1.1cm) Mitral Valve MitralMitral Stenosis E wave0.73m/sMV Mean GR.mmHg A wave0.96m/sMV Peak GR.76mmHg E/A ratio0.82D MVAcm2 DECEL [id number] 1/2 Timems Aortic Valve Aortic ValveAortic Stenosis V11.13m/Liliam Mean GR.8mmHg V21.91m/Liliam Peak GR.15mmHg LVOT Diameter2.0 (1.8-2.4cm)Doppler AVA1.86cm2 Other Information Quality : Technically LimitedRhythm : Technically limited study due to patient position.body habitus.patient moving. Conclusion Technically difficult study secondary to poor acoustic windows. Left ventricle: Left ventricle was normal sized with hyperdynamic systolic function. LVEF was aroun d 76%. There was no gross wall motion abnormality. Right ventricle was normal sized with normal systolic function. Both atria were normal sized. Aortic valve was not well visualized. There was no aortic insufficiency/stenosis. There was trace m itral regurgitation. There was no tricuspid regurgitation. Pulmonic valve was not well visualized. As there was no good tricuspid regurgitation jet, right ventricular systolic pressure could not be es timated. There was no echocardiographic evidence for pulmonary hypertension. There was no pericardi al effusion.
[2024-11-07 08:18] LABS: Basophils # (auto) 0 10 ^3/uL (0-0.2); Basophils % (auto) 0.2 % (0.0-2.0); Eosinophils # (auto) 0 10 ^3/uL (0-0.8); Eosinophils % (auto) 0.3 % (0.0-7.0); Hematocrit 39.5 % (36.0-46.0); Hemoglobin 13.5 g/dL (12.2-16.2); Lymphocytes # (auto) 2.1 10 ^3/uL (0.4-5.4); Lymphocytes % (auto) 13.7 % (10.0-50.0); Mean Corpuscular Hemoglobin 30.6 pg (28.0-32.0); Mean Corpuscular Volume 89.9 fL (80.0-100.0); Monocytes # (auto) 1.2 10 ^3/uL (0-1.3); Monocytes % (auto) 8.2 % (0.0-12.0); Neutrophils # (auto) 11.8 10 ^3/uL (1.6-8.6); Neutrophils % (auto) 77.6 % (37.0-80.0); Platelet Count (auto) 325 10^3/uL (140-450); Red Cell Distribution Width 13.4 % (11.8-14.3); White Blood Cell 15.2 10^3/uL (4.4-10.8)
--- NOTE | 2024-11-07 08:20 | DVHPN2 ---
Progress Note - Dictate Date Seen: Nov 07, 2024 Has the PT tested + for MRSA If YES, has PT been informed?: No Medical Necessity Reason Pt with a Central, PICC or Fol: No vital signs Vital Sign Date Time Temp Pulse Resp B/P (MAP) Pulse Ox O2 Delivery O2 Flow Rate FiO2 11/07/24 07:47 16 Nasal Cannula* 2 28 11/07/24 04:51 98.5 87 132/80 (97) 100 98.5 Total Intake and Output 11/06/24 11/06/24 11/07/24 15:00 23:00 07:00 Intake Total 850 ml 250 ml 600 ml Output Total 50 ml 50 ml 1000 ml Balance 800 ml 200 ml -400 ml medications Current Medications Medications Dose Ordered Sig/Purvi Route Start Time Stop Time Status Last Admin Dose Admin Dextrose 50 ml UD PRN IV 11/05/24 11:30 Enoxaparin Sodium 40 mg DAILY SC 11/05/24 14:15 11/06/24 09:27 40 MG Morphine Sulfate 2 mg Q4HPRN PRN IV 11/05/24 14:15 11/05/24 20:46 2 MG Ondansetron HCl 4 mg Q4HPRN PRN IV 11/05/24 14:15 11/05/24 20:37 4 MG Acetaminophen/ Hydrocodone Bitart 1 tab Q6HPRN PRN PO 11/05/24 14:15 Nitroglycerin 0.4 mg Q5MINP PRN SL 11/05/24 14:30 Morphine Sulfate 2 mg Q30M PRN IV 11/05/24 14:30 Metoprolol Tartrate 50 mg BID PO 11/05/24 15:45 11/06/24 21:25 50 MG Pantoprazole Sodium 40 mg DAILY IV 11/06/24 10:00 Azithromycin 250 ml @ 125 mls/hr DAILY IV 11/06/24 10:00 11/07/24 07:58 125 MLS/HR Piperacillin Sod/ Tazobactam Sod 100 ml @ 25 mls/hr Q12HR IV 11/05/24 22:00 11/06/24 21:24 25 MLS/HR Insulin Glargine 30 units HS SC 11/06/24 22:00 11/06/24 21:36 30 UNITS Acetaminophen 650 mg Q4HP PRN PO 11/06/24 12:30 Aspirin 81 mg DAILY PO 11/07/24 10:00 Insulin Human Regular Q6HR SC 11/06/24 18:00 11/06/24 17:19 2 UNITS Diagnostic Test (Pha) 1 strip Q6HR 11/06/24 18:00 11/07/24 05:49 1 STRIP laboratory and microbiology Test 11/07/24 07:20 Range/Units Serum Glucose Pending Assessment/Plan Patient is a 69-year-old female who was brought to the hospital for generalized weakness/nausea and inability to ambulate without assistance. Patient was recently (few weeks ago) in [facility] where she was treated for pneumonia and COPD exacerbation. Since arrival, the patient was found to be feverish with leukocytosis (shift to the left). She also was having tachycardia. She is admitted with pneumonia/sepsis/diabetic ketoacidosis. Cardiology is involved for cardiac aspects of care. Patient is known to our practice from outside and before. Patient denies any chest pains. She denies orthopnea/PND. Obese female, not in acute distress. Lying flat in bed. No JVD. Not using accessory muscles of breathing. No carotid bruit. Scattered rhonchi in the l ungs is heard. Cardiac: Regular, no thrill/gallop. Systolic murmur 2/6 in apex is heard. Abdomen is soft and obese. Bowel sound is positive. There is no gross mass/hepatomegaly. Extremities reveal 2+ edema bilaterally. Past medical history includes morbid obesity, diabetes mellitus, hypertension, hyperlipidemia, peripheral neuropathy, COPD, history of diverticulosis, SP c olostomy (secondary to diverticulosis), depression, kidney stones, migraines, obstructive sleep apnea (on CPAP as outpatient), GERD, history of carpal tunnel disease, osteoporosis and questionable history of diastolic heart failure. She smokes cigarettes actively. She does have history of hysterectomy. Nuclear stress test of February 2021 (performed in the office) revealed perfusion normal and ejection fraction of 56% Echocardiogram (performed in [facility]) of October 25, 2024 had revealed ejection fraction of 65%, trace TR and right ventricular systolic pressure of 36 mm Hg. WBC: 25.3 - 17.5 - 15.2 Creatinine: 1.68 - 0.75 - 0.58 Potassium: 3.7 - 3.5 - 3.0 Troponin (high sensitive): BNP: 177.86 Beta hydroxybutyrate: 3.541 Chest x-ray reported: IMPRESSION: 1. Mild diffuse pulmonary edema with multifocal pneumonia not excluded. Abdomen and pelvic CT reported: IMPRESSION: 1. No acute abnormality in the abdomen or pelvis. 2. Left lower quadrant colostomy without obstruction or fluid collection. 3. Punctate nonobstructing right intrarenal calculus. EKG revealed sinus tachycardia with nonspecific ST-T changes Tele reveals sinus tachycardia Echocardiogram revealed: Technically difficult study secondary to poor acoustic windows. Left ventricle: Left ventricle was normal sized with hyperdynamic sy stolic function. LVEF was around 76%. There was no gross wall motion abnormality. Right ventricle was normal sized with normal systolic function. Both atria were normal sized. Aortic valve was not well visualized. There was no aortic insufficiency/stenosis. There was trace mitral regurgitation. There was no tricuspid regurgitation. Pulmonic valve was not well visualized. As there was no good tricuspid regurgitation jet, right ventricular systolic pressure could not be estimated. There was no echocardiographic evidence for pulmonary hypertension. There was no pericardial effusion. Patient is a 69-year-old morbidly obese female who was brought to the hospital for altered mental status/generalized weakness. She is found to have sepsis. She does have leukocytosis with shift to the left. Was recently in another facility for sepsis also. Is found to have increased blood sugar with increased beta hydroxybutyrate. Is evaluated to have diabetic ketoacidosis most likely secondary to intercurrent infection/sepsis. Acute on chronic respiratory failure secondary to COPD exacerbation/pneumonia could have contributed to the clinical picture. Could the patient have component of acute on chronic diastolic heart failure? Acute respiratory failure on chronic respiratory failure Pneumonia, community-acquired COPD exacerbation Diabetic ketoacidosis Sepsis Morbid obesity Diabetes mellitus Hypertension Hyperlipidemia kidney stone Colostomy history of Cardiac suggestion for management: Manage on telemetry Follow-up electrolytes and kidney function tests and correct abnormalities Fluid resuscitation Aspirin: 81 mg daily Sepsis workup (dixon culture) and management of sepsis (antibiotics) as per primary team Consider Nephrology evaluation Further evaluation and management depends on the above and clinical course A total of 55 minutes was spent reviewing the patient record, examining the patient, making a diagnostic and therapeutic plan, discussing this plan with medical personnel, following up on diagnostic studies and following the patient for clinical stability excluding any and all procedures. At least 50% of this time was spent in direct, [id number] contact. Thank you for allowing me to participate in this patient's care. Further recommendations will depend on patient's clinical course. Please do not hesitate to contact me if you have any questions or concerns. This medical document was created using electronic medical record system with [email or web address] computerized dictation system. Although this document has been carefully reviewed, there may still be some phonetic and typographical errors. These areas are purely typographical due to the imperfection of the software programs, and do not reflect any compromise in the patient's medical care. Plan discussed with: Patient, Other (nurse) HARRY DORADO MD Nov 07, 2024 08:20
[2024-11-07 08:31] LABS: Alanine Aminotransferase 24 U/L (7-40); Albumin 3.4 g/dL (3.2-4.8); Alkaline Phosphatase 69 U/L (46-116); Anion Gap 9 (5-15); BUN/Creatinine Ratio 27.6 (10.0-20.0); Blood Urea Nitrogen 16 mg/dL (9-23); Calcium 9.1 mg/dL (8.7-10.4); Carbon Dioxide 26 mmol/L (20-31); Chloride 101 mmol/L (98-107); Sodium 136 mmol/L (136-145); Total Protein 6.6 g/dL (5.7-8.2)
[2024-11-07 08:32] LABS: Bilirubin, Total 0.5 mg/dL (0.2-1.0)
[2024-11-07 08:35] LABS: Aspartate Aminotransferase 66 U/L (13-40); Glucose 116 mg/dL (74-106)
[2024-11-07] MEDS: ASPirin 81 mg TAB PO SCH (09:14)
[2024-11-07] MEDS: SODIUM CHLORIDE 0.9% 1,000 ML IV SCH (09:38)
--- NOTE | 2024-11-07 11:03 | DVHPNRES ---
Progress Note Date Seen: Nov 07, 2024 Resident Creating Document: ELENA ESPINAL RESIDENT Has the PT tested + for MRSA If YES, has PT been informed?: No Medical Necessity Reason Pt with a Central, PICC or Fol: No Subjective Review of Systems A 69 year old female who presented to the ED via EMS with chief complaint of generalized weakness and nausea. Patient denies chest pain, shortness of breath, fever, chills, dysuria. Patient was tachycardic upon arrival, with negative troponins. Patient was recently admitted to [facility] 2 weeks prior to this admission for chest pain and shortness of breath, patient had echocardiogram at that time which showed EF 65%, normal RV size and function, AV and MV no significant or MS. Trace TR, 35 mmHg. With trivial pericardial effusion. Last Lexiscan 03/12/2021 which showed normal LV perfusion with an EF of 56%. Patient's blood sugars were also running high on her last admission at [facility], but she was also on steroids at that time. Patient is being admitted to telemetry for diabetic ketoacidosis. Past Medical History COPD, diabetes mellitus, peripheral neuropathy, hypertension, hyperlipidemia, COPD, diverticulosis, kidney stones, migraine, MINOO, GERD Past Surgical History Hysterectomy colostomy 3y ago due to diverticulitis Smoke: Quit ALCOHOL: none Drugs: None Lives: Home 11/06/24: Pt states abdominal pain, no changes in the output of her colostomy, but the drainage is greenish, CT scan: Multiple gallstones 11/07/24: WBC trending down, hypokalemia, severe deconditioning, PT evaluation for possible physical therapy rehab at SNF. ECHO: LVEF was around 76% Objective vital signs Vital Sign Date Time Temp Pulse Resp B/P (MAP) Pulse Ox O2 Delivery O2 Flow Rate FiO2 11/07/24 10:14 80 127/68 11/07/24 08:44 98.2 18 93 98.2 11/07/24 07:47 Nasal Cannula* 2 28 Total Intake and Output 11/06/24 11/06/24 11/07/24 15:00 23:00 07:00 Intake Total 850 ml 250 ml 600 ml Output Total 50 ml 50 ml 1000 ml Balance 800 ml 200 ml -400 ml medications Current Medications Medications Dose Ordered Sig/Purvi Route Start Time Stop Time Status Last Admin Dose Admin Dextrose 50 ml UD PRN IV 11/05/24 11:30 Enoxaparin Sodium 40 mg DAILY SC 11/05/24 14:15 11/07/24 09:14 40 MG Morphine Sulfate 2 mg Q4HPRN PRN IV 11/05/24 14:15 11/05/24 20:46 2 MG Ondansetron HCl 4 mg Q4HPRN PRN IV 11/05/24 14:15 11/05/24 20:37 4 MG Acetaminophen/ Hydrocodone Bitart 1 tab Q6HPRN PRN PO 11/05/24 14:15 Nitroglycerin 0.4 mg Q5MINP PRN SL 11/05/24 14:30 Morphine Sulfate 2 mg Q30M PRN IV 11/05/24 14:30 Metoprolol Tartrate 50 mg BID PO 11/05/24 15:45 11/07/24 09:14 50 MG Pantoprazole Sodium 40 mg DAILY IV 11/06/24 10:00 11/07/24 09:14 40 MG Piperacillin Sod/ Tazobactam Sod 100 ml @ 25 mls/hr Q12HR IV 11/05/24 22:00 11/07/24 10:16 25 MLS/HR Insulin Glargine 30 units HS SC 11/06/24 22:00 11/06/24 21:36 30 UNITS Acetaminophen 650 mg Q4HP PRN PO 11/06/24 12:30 Aspirin 81 mg DAILY PO 11/07/24 10:00 11/07/24 09:14 81 MG Insulin Human Regular Q6HR SC 11/06/24 18:00 11/06/24 17:19 2 UNITS Diagnostic Test (Pha) 1 strip Q6HR 11/06/24 18:00 11/07/24 05:49 1 STRIP Potassium Chloride 50 ml @ 25 mls/hr Q2H IV 11/07/24 11:00 11/07/24 14:59 Azithromycin 250 ml @ 125 mls/hr DAILY@0800 IV 11/08/24 08:00 Sodium Chloride 1,000 ml @ 100 mls/hr Q10H IV 11/07/24 09:30 11/07/24 09:38 100 MLS/HR Examination General Appearance: Alert, Oriented X3, Cooperative, No acute distress HEENT: Atraumatic, PERRLA, EOMI, Mucous membr. dry Respiratory: Clear to auscultation, Normal air movement Cardiovascular: Regular rate, Normal S1, Normal S2, No murmurs Abdominal: colostomy with greenish drainage, generalized tenderness in the abdomen Extremities: No clubbing, No cyanosis, No edema, Normal pulses, Other (Lower extremity pain from neuropathy) Skin: No rashes, No breakdown, No significant lesion Neuro: Normal gait, Normal speech, Strength at 5/5 X4 ext, Normal tone, Sensation intact, Cranial nerves 3-12 NL, Reflexes 2+ Psych/Mental Status: Mental status NL, Mood NL laboratory and microbiology Laboratory Tests 11/07/24 07:20 Test 11/07/24 07:20 Range/Units Serum Glucose 116 H 74-106 mg/dL Microbiology Date/Time Source Procedure Growth Status 11/06/24 11:00 Stool Stool Culture - Preliminary Resulted 11/06/24 11:00 Stool Shiga Toxin I & II - Final Resulted 11/05/24 10:25 Blood Blood Culture - Preliminary NO GROWTH AFTER 48 HOURS OF INCUBATION. Resulted Problem List/Assessment/Plan Problem List/Assessment/Plan #Sepsis due to pneumonia gram+/gram neg #s/p colostomy #rule out abdominal abcess or abdominal sepsis #Acute respiratory failure on chronic respiratory failure #Acute on chronic diastolic heart failure? #COPD exacerbation #DKA resolved #Morbid obesity #Diabetes mellitus type 2 #Hypertension #Hyperlipidemia Full liquid diet Telemetry Zosyn IV Azithromycin Enoxaparin 40 mg SC Lantus 30 UI Moderate insulin sliding scale Protonix IV Metoprolol 50 mg PO IV fluids 100CC/H 11/06/24: Pt states abdominal pain, no changes in the output of her colostomy, but the drainage is greenish, CT scan: Multiple gallstones 11/07/24: WBC trending down, hypokalemia, severe deconditioning, PT evaluation for possible physical therapy rehab at SNF. ECHO: LVEF was around 76% Case discussed with Dr Morataya Plan discussed with: Patient, Other (RN) My Orders My Orders Orders - ELENA ESPINAL Procedure Category Date Status Time Stool Bacterial RENEE 11/06/24 In Process Culture 11:08 Acetaminophen Tablet PHA 11/06/24 In Process (Tylenol Tablet) 12:30 Aspirin Tablet PHA 11/07/24 In Process 10:00 Echo 2d Mode Cardiac US 11/06/24 Resulted DOP 14:00 Ct Ab Pel With Iv Con CT 11/06/24 Resulted Only 13:13 Insulin R (Human) PHA 11/06/24 In Process (Insulin R) 18:00 Glucose Blood PHA 11/06/24 In Process (Accu-Chek Comfort 18:00 D/C Stauffer KAVON 11/07/24 In Process 08:09 Pt Request For Service PT 11/07/24 Logged 08:31 Potassium Chl PHA 11/07/24 In Process 20meq/50ml (Potassium 11:00 Sodium Chl 0.9% PHA 11/07/24 In Process (Sodium Chloride) 11:00 Pt Request For Service PT 11/07/24 Logged 10:12 Date of Service: Nov 07, 2024 Billing Provider: KAY MORATAYA MD Common Visit Codes: [id number] INP/OBS CARE(HIGH) ELENA ESPINAL RESIDENT Nov 07, 2024 11:03 KAY MORATAYA MD Nov 08, 2024 22:23
[2024-11-07] MEDS: POTASSIUM CHL 20MEQ/50ML 50 ML IV SCH (11:11)
[2024-11-07] MEDS: SODIUM CHL 0.9% 100 ML IV ONE (11:12)
[2024-11-08 05:00] VITALS: BP 125/74; PULSE 66; RESP 16; TEMP 97.7; O2SAT 96
--- NOTE | 2024-11-08 06:39 | DVHPN2 ---
Progress Note - Dictate Date Seen: Nov 08, 2024 Has the PT tested + for MRSA If YES, has PT been informed?: No Medical Necessity Reason Pt with a Central, PICC or Fol: No vital signs Vital Sign Date Time Temp Pulse Resp B/P (MAP) Pulse Ox O2 Delivery O2 Flow Rate FiO2 11/08/24 05:00 97.7 66 16 125/74 (91) 96 97.7 11/07/24 20:00 Nasal Cannula* 2 28 Total Intake and Output 11/07/24 11/07/24 11/08/24 15:00 23:00 07:00 Intake Total 400 ml 1360 ml 800 ml Output Total 650 ml 550 ml Balance 400 ml 710 ml 250 ml medications Current Medications Medications Dose Ordered Sig/Purvi Route Start Time Stop Time Status Last Admin Dose Admin Dextrose 50 ml UD PRN IV 11/05/24 11:30 Enoxaparin Sodium 40 mg DAILY SC 11/05/24 14:15 11/07/24 09:14 40 MG Morphine Sulfate 2 mg Q4HPRN PRN IV 11/05/24 14:15 11/07/24 13:28 2 MG Ondansetron HCl 4 mg Q4HPRN PRN IV 11/05/24 14:15 11/05/24 20:37 4 MG Acetaminophen/ Hydrocodone Bitart 1 tab Q6HPRN PRN PO 11/05/24 14:15 Nitroglycerin 0.4 mg Q5MINP PRN SL 11/05/24 14:30 Morphine Sulfate 2 mg Q30M PRN IV 11/05/24 14:30 Metoprolol Tartrate 50 mg BID PO 11/05/24 15:45 11/07/24 22:23 50 MG Pantoprazole Sodium 40 mg DAILY IV 11/06/24 10:00 11/07/24 09:14 40 MG Piperacillin Sod/ Tazobactam Sod 100 ml @ 25 mls/hr Q12HR IV 11/05/24 22:00 11/07/24 22:23 25 MLS/HR Insulin Glargine 30 units HS SC 11/06/24 22:00 11/07/24 22:26 30 UNITS Acetaminophen 650 mg Q4HP PRN PO 11/06/24 12:30 Aspirin 81 mg DAILY PO 11/07/24 10:00 11/07/24 09:14 81 MG Insulin Human Regular Q6HR SC 11/06/24 18:00 11/08/24 00:00 2 UNITS Diagnostic Test (Pha) 1 strip Q6HR 11/06/24 18:00 11/08/24 05:26 1 STRIP Azithromycin 250 ml @ 125 mls/hr DAILY@0800 IV 11/08/24 08:00 Sodium Chloride 1,000 ml @ 100 mls/hr Q10H IV 11/07/24 09:30 11/07/24 17:19 100 MLS/HR laboratory and microbiology Laboratory Tests 11/07/24 07:20 Test 11/07/24 07:20 Range/Units Serum Glucose 116 H 74-106 mg/dL Assessment/Plan Patient is a 69-year-old female who was brought to the hospital for generalized weakness/nausea and inability to ambulate without assistance. Patient was recently (few weeks ago) in [facility] where she was treated for pneumonia and COPD exacerbation. Since arrival, the patient was found to be feverish with leukocytosis (shift to the left). She also was having tachycardia. She is admitted with pneumonia/sepsis/diabetic ketoacidosis. Cardiology is involved for cardiac aspects of care. Patient is known to our practice from outside and before. Patient denies any chest pains. She denies orthopnea/PND. Obese female, not in acute distress. Lying flat in bed. No JVD. Not using accessory muscles of breathing. No carotid bruit. Scattered rhonchi in the lungs is heard. Cardiac: Regular, no thrill/gallop. Systolic murmur 2/6 in apex is heard. Abdomen is soft and obese. Bowel sound is positive. There is no gross mass/hepatomegaly. Extremities reveal 2+ edema bilaterally. Past medical history includes morbid obesity, diabetes mellitus, hypertension, hyperlipidemia, peripheral neuropathy, COPD, history of diverticulosis, SP colostomy (secondary to diverticulosis), depression, kidney stones, migraines, obstructive sleep apnea (on CPAP as outpatient), GERD, history of carpal tunnel disease, osteoporosis and questionable history of diastolic heart failure. She smokes cigarettes actively. She does have history of hysterectomy. Nuclear stress test of February 2021 (performed in the office) revealed perfusion normal and ejection fraction of 56% Echocardiogram (performed in [facility]) of October 25, 2024 had revealed ejection fraction of 65%, trace TR and right ventricular systolic pressure of 36 mm Hg. WBC: 25.3 - 17.5 - 15.2 Creatinine: 1.68 - 0.75 - 0.58 Potassium: 3.7 - 3.5 - 3.0 Troponin (high sensitive): 23 - 23 - 28 BNP: 177.86 Beta hydroxybutyrate: 3.541 Chest x-ray reported: IMPRESSION: 1. Mild diffuse pulmonary edema with multifocal pneumonia not excluded. Abdomen and pelvic CT reported: IMPRESSION: 1. No acute abnormality in the abdomen or pelvis. 2. Left lower quadrant colostomy without obstruction or fluid collection. 3. Punctate nonobstructing right intrarenal calculus. EKG revealed sinus tachycardia with nonspecific ST-T changes Tele reveals sinus tachycardia Echocardiogram revealed: Technically difficult study secondary to poor acoustic windows. Left ventricle: Left ventricle was normal sized with hyperdynamic systolic function. LVEF was around 76%. There was no gross wall motion abnormality. Right ventricle was normal sized with normal systolic function. Both atria were normal sized. Aortic valve was not well visualized. There was no aortic insufficiency/stenosis. There was trace mitral regurgitation. There was no tricuspid regurgitation. Pulmonic valve was not well visualized. As there was no good tricuspid regurgitation jet, right ventricular systolic pressure could not be estimated. There was no echocardiographic evidence for pulmonary hypertension. There was no pericardial effusion. Patient is a 69-year-old morbidly obese female who was brought to the hospital for altered mental status/generalized weakness. She is found to have sepsis. She does have leukocytosis with shift to the left. Was recently in another facility for sepsis also. Is found to have increased blood sugar with increased beta hydroxybutyrate. Is evaluated to have diabetic ketoacidosis most likely secondary to intercurrent infection/sepsis. Acute on chronic respiratory failure secondary to COPD exacerbation/pneumonia could have contributed to the clinical picture. Could the patient have component of acute on chronic diastolic heart failure? Acute respiratory failure on chronic respiratory failure Pneumonia, community-acquired COPD exacerbation Diabetic ketoacidosis Sepsis Morbid obesity Diabetes mellitus Hypertension Hyperlipidemia kidney stone Colostomy history of Cardiac suggestion for management: Manage on telemetry Follow-up electrolytes and kidney function tests and correct abnormalities Fluid resuscitation Aspirin: 81 mg daily Sepsis workup (dixon culture) and management of sepsis (antibiotics) as per primary team Further evaluation and management depends on the above and clinical course A total of 55 minutes was spent reviewing the patient record, examining the patient, making a diagnostic and therapeutic plan, discussing this plan with medical personnel, following up on diagnostic studies and following the patient for clinical stability excluding any and all procedures. At least 50% of this time was spent in direct, [id number] contact. Thank you for allowing me to participate in this patient's care. Further recommendations will depend on patient's clinical course. Please do not hesitate to contact me if you have any questions or concerns. This medical document was created using electronic medical record system with [employer] computerized dictation system. Although this document has been carefully reviewed, there may still be some phonetic and typographical errors. These areas are purely typographical due to the imperfection of the software programs, and do not reflect any compromise in the patient's medical care. Plan discussed with: Patient, Other (nurse) HARRY DORADO MD Nov 08, 2024 06:39
[2024-11-08 08:06] LABS: Basophils # (auto) 0 10 ^3/uL (0-0.2); Basophils % (auto) 0.2 % (0.0-2.0); Eosinophils # (auto) 0.2 10 ^3/uL (0-0.8); Eosinophils % (auto) 1.7 % (0.0-7.0); Hematocrit 39.9 % (36.0-46.0); Hemoglobin 13.7 g/dL (12.2-16.2); Lymphocytes # (auto) 2.2 10 ^3/uL (0.4-5.4); Lymphocytes % (auto) 18.8 % (10.0-50.0); Mean Corpuscular Hemoglobin 30.8 pg (28.0-32.0); Mean Corpuscular Hgb Conc. 34.4 g/dL (32.0-36.0); Mean Corpuscular Volume 89.6 fL (80.0-100.0); Monocytes # (auto) 0.8 10 ^3/uL (0-1.3); Monocytes % (auto) 6.8 % (0.0-12.0); Neutrophils # (auto) 8.3 10 ^3/uL (1.6-8.6); Neutrophils % (auto) 72.5 % (37.0-80.0); Platelet Count (auto) 327 10^3/uL (140-450); Red Blood Cells 4.45 10^6/uL (4.0-5.20); Red Cell Distribution Width 13.5 % (11.8-14.3); White Blood Cell 11.5 10^3/uL (4.4-10.8)
[2024-11-08 08:32] LABS: Alanine Aminotransferase 25 U/L (7-40); Albumin 3.3 g/dL (3.2-4.8); Alkaline Phosphatase 63 U/L (46-116); Anion Gap 9 (5-15); Blood Urea Nitrogen 10 mg/dL (9-23); Calcium 9.1 mg/dL (8.7-10.4); Carbon Dioxide 27 mmol/L (20-31); Chloride 101 mmol/L (98-107); Glucose 103 mg/dL (74-106); Sodium 137 mmol/L (136-145); Total Protein 6.5 g/dL (5.7-8.2)
[2024-11-08 08:33] LABS: Bilirubin, Total 0.4 mg/dL (0.2-1.0)
[2024-11-08 08:37] LABS: Aspartate Aminotransferase 41 U/L (13-40)
[2024-11-08 08:41] VITALS: BP 152/54; PULSE 78; RESP 18; TEMP 97.8; O2SAT 100
[2024-11-08] MEDS ORDERED: POTASSIUM CHL 20MEQ/100ML 100 ML IV SCH (08:45)
[2024-11-08] MEDS: AZITHROMYCIN 500MG/ 250ML 250 ML IV SCH (09:22)
[2024-11-08] MEDS: POTASSIUM CHL 20MEQ/50ML 50 ML IV SCH (10:00)
[2024-11-08 13:00] VITALS: BP 123/67; PULSE 63; RESP 18; TEMP 97.9; O2SAT 97
[2024-11-08 14:18] VITALS: BP 123/67; PULSE 63
[2024-11-08] MEDS: POTASSIUM EFFERVESENT TAB 25 MEQ PO ONE (14:45)
--- NOTE | 2024-11-08 15:25 | DVHDSRES ---
Discharge Summary Date of Admission Resident Creating Document: ELENA ESPINAL RESIDENT Nov 05, 2024 at 14:29 Date of Discharge: Nov 08, 2024 Admitting Diagnosis #Sepsis due to pneumonia gram+/gram neg Labs/Diagnostic Data: Laboratory Results Test 11/08/24 11:31 11/08/24 07:05 11/06/24 11:55 11/06/24 11:00 POC Glucose 110 mg/dl (70-106) White Blood Count 11.5 10^3/uL (4.4-10.8) Red Blood Count 4.45 10^6/uL (4.0-5.20) Hemoglobin 13.7 g/dL (12.2-16.2) Hematocrit 39.9 % (36.0-46.0) Mean Corpuscular Volume 89.6 fL (80.0-100.0) Mean Corpuscular Hemoglobin 30.8 pg (28.0-32.0) Mean Corpuscular Hemoglobin Concent 34.4 g/dL (32.0-36.0) Red Cell Distribution Width 13.5 % (11.8-14.3) Platelet Count 327 10^3/uL (140-450) Mean Platelet Volume 8.6 fL (6.9-10.8) Neutrophils (%) (Auto) 72.5 % (37.0-80.0) Lymphocytes (%) (Auto) 18.8 % (10.0-50.0) Monocytes (%) (Auto) 6.8 % (0.0-12.0) Eosinophils (%) (Auto) 1.7 % (0.0-7.0) Basophils (%) (Auto) 0.2 % (0.0-2.0) Neutrophils # (Auto) 8.3 10 ^3/uL (1.6-8.6) Lymphocytes # (Auto) 2.2 10 ^3/uL (0.4-5.4) Monocytes # (Auto) 0.8 10 ^3/uL (0-1.3) Eosinophils # (Auto) 0.2 10 ^3/uL (0-0.8) Basophils # (Auto) 0 10 ^3/uL (0-0.2) Nucleated Red Blood Cells 0.0 % Sodium Level 137 mmol/L (136-145) Potassium Level 3.0 mmol/L (3.5-5.1) Chloride Level 101 mmol/L (98-107) Carbon Dioxide Level 27 mmol/L (20-31) Anion Gap 9 (5-15) Blood Urea Nitrogen 10 mg/dL (9-23) Creatinine 0.50 mg/dL (0.550-1.02) Glomerular Filtration Rate Calc 103 mL/min (>90) BUN/Creatinine Ratio 20.0 (10.0-20.0) Serum Glucose 103 mg/dL (74-106) Calcium Level 9.1 mg/dL (8.7-10.4) Total Bilirubin 0.4 mg/dL (0.2-1.0) Aspartate Amino Transferase (AST) 41 U/L (13-40) Alanine Aminotransferase (ALT) 25 U/L (7-40) Alkaline Phosphatase 63 U/L (46-116) Total Protein 6.5 g/dL (5.7-8.2) Albumin 3.3 g/dL (3.2-4.8) Hemoglobin A1c 7.8 % A1C (<5.7) Triglycerides Level 87 mg/dL (< 150) Cholesterol Level 107 mg/dL (< 200) LDL Cholesterol 49 mg/dL (< 100) HDL Cholesterol 36 mg/dL (40-59) Stool for White Cells None seen Test 11/05/24 16:56 11/05/24 13:02 11/05/24 10:25 11/05/24 10:15 Lactic Acid Level 1.7 mmol/L (0.4-2.0) Troponin I High Sensitivity 28 ng/L (</=34) B-Type Natriuretic Peptide 177.86 pg/mL (0-100) Beta-Hydroxybutyric Acid 3.541 mmol/L (< 0.4) Urine Color Yellow (Yellow) Urine Clarity Clear (Clear) Urine pH 5.5 (5.0-9.0) Urine Specific [place] 1.021 (1.001-1.035) Urine Protein Trace (Negative) Urine Ketones Trace (Negative) Urine Blood Negative /uL (Negative) Urine Nitrite Negative (Negative) Urine Bilirubin Negative (Negative) Urine Urobilinogen Normal mg/dL (Negative) Urine Leukocyte Esterase Negative /uL (Negative) Urine RBC None seen /hpf (0 - 4) Urine Microscopic WBC 1 /HPF (0-5) Urine Squamous Epithelial Cells None seen /hpf (<5) Urine Bacteria None seen /hpf (None Seen) Urine Hyaline Casts Mod /lpf (0 - 2) Urine Glucose 3+ mg/dL (Normal) Other Laboratory Tests 11/08/24 07:05 Brief Hx & Hospital Course: A 69 year old female who presented to the ED via EMS with chief complaint of generalized weakness and nausea. Patient denies chest pain, shortness of breath, fever, chills, dysuria. Patient was tachycardic upon arrival, with negative troponins. Patient was recently admitted to [facility] 2 weeks prior to this admission for chest pain and shortness of breath, patient had echocardiogram at that time which showed EF 65%, normal RV size and function, AV and MV no significant or MS. Trace TR, 35 mmHg. With trivial pericardial effusion. Last Lexiscan 03/12/2021 which showed normal LV perfusion with an EF of 56%. Patient's blood sugars were also running high on her last admission at [facility], but she was also on steroids at that time. Patient is being admitted to telemetry for diabetic ketoacidosis. Past Medical History COPD, diabetes mellitus, peripheral neuropathy, hypertension, hyperlipidemia, COPD, diverticulosis, kidney stones, migraine, MINOO, GERD Past Surgical History Hysterectomy colostomy 3y ago due to diverticulitis Smoke: Quit ALCOHOL: none Drugs: None Lives: Home 11/06/24: Pt states abdominal pain, no changes in the output of her colostomy, but the drainage is greenish, CT scan: Multiple gallstones 11/07/24: WBC trending down, hypokalemia, severe deconditioning, PT evaluation for possible physical therapy rehab at [facility]. ECHO: LVEF was around 76% 11/08/24: WBC trending down, hypokalemia treated, patient will be transferred to [facility] to continue IV AB and PT rehab, patient will need AB to complete AB course for 5-7 days General Appearance: Alert, Oriented X3, Cooperative, No acute distress HEENT: Atraumatic, PERRLA, EOMI, Mucous membr. dry Respiratory: Clear to auscultation, Normal air movement Cardiovascular: Regular rate, Normal S1, Normal S2, No murmurs Abdominal: colostomy with greenish drainage, generalized tenderness in the abdomen Extremities: No clubbing, No cyanosis, No edema, Normal pulses, Other (Lower extremity pain from neuropathy) Skin: No rashes, No breakdown, No significant lesion Neuro: Normal gait, Normal speech, Strength at 5/5 X4 ext, Normal tone, Sensation intact, Cranial nerves 3-12 NL, Reflexes 2+ Psych/Mental Status: Mental status NL, Mood NL Case discussed with Dr Morataya Operations or Procedures History: rule out abcess sp colosotmy Comparison Study: None available at time of dictation. Contrast: Type of contrast: Contrast injected: Contrast wasted: 0 TECHNIQUE: CT of the abdomen pelvis performed with intravenous contrast from the lung bases to the proximal femurs using 100 cc of Omnipaque 350 intravenous contrast. Coronal sagittal reformatted images submitted. Radiation Dose Information: CT Dose: CTDI volume is 27.09 mGy. Dose-length product is 1339.32 mGy*cm FINDINGS: Lung Bases: Emphysema at the lung bases. Normal heart size. No pleural or pericardial effusion. Liver: The liver is normal in size. No focal lesions. Normal hepatic vascular enhancement. Gallbladder and Biliary Tree: Multiple gallstones. No intrahepatic or extrahepatic biliary ductal dilatation. Spleen: Unremarkable Pancreas: The pancreas is normal in appearance without focal lesions or abnormal enhancement. Adrenal Glands: Unremarkable Kidneys: Kidneys enhance symmetrically. 5 mm calculus in the lower pole of the right kidney. No hydronephrosis. Bladder: Stauffer catheter in the urinary bladder. Bowel: The stomach is grossly normal in appearance. The small bowel is normal in caliber. There is a left lower quadrant colostomy. No bowel obstruction at the site of the colostomy. Normal appendix. Intraperitoneal cavity: No pneumoperitoneum. No ascites. Lymphadenopathy: No mesenteric, retroperitoneal or periportal lymphadenopathy. Abdominal Wall and Mesentery: Left lower quadrant colostomy. Vasculature: The visualized abdominal aorta is normal in size and caliber. Abdominal and pelvic vessels demonstrate normal enhancement. Pelvic Organs: Unremarkable Musculoskeletal: No aggressive focal bony lesions, acute fractures or dislocation. Multilevel lumbar spondylosis. Soft tissues: Unremarkable. IMPRESSION: 1. No acute abnormality in the abdomen or pelvis. 2. Left lower quadrant colostomy without obstruction or fluid collection. 3. Punctate nonobstructing right intrarenal calculus. Condition at Discharge: Stable Final Diagnosis/Problems List #Sepsis due to pneumonia gram+/gram neg #s/p colostomy #rule out abdominal abcess or abdominal sepsis #Acute respiratory failure on chronic respiratory failure #Acute on chronic diastolic heart failure? #COPD exacerbation #DKA resolved #Morbid obesity #Diabetes mellitus type 2 #Hypertension #Hyperlipidemia Discharge Disposition: [facility] Facility Discharge Instruct/Medications Diet: Consistent carbohydrate, Cardiac 2g Na,low cholest Activity: See Comment Activity comment: SNF for PT rehab Follow Up/Referral: fu with pcp Medications: patient is transfer to SNF Discharge Statement: "Patient was advised to return to the ER or call 911 if any headaches, dizziness, shortness of breath, chest pain, abdominal pain, bleeding, fevers, or worsening of medical condition. Patient was counseled about treatment plan, medications, possible side effects, patientverbalized understanding. All questions were answered to the best of my ability. This discharge took greater then 30 minutes in planning, reviewing documentation, counseling the patient, and discussing with other team members." ASSESSMENT ASSESSMENT Assessment sepsis due to pneumonia Date of Service: Nov 08, 2024 Billing Provider: KAY MORATAYA MD Common Visit Codes: 42780-YAE/OBS DISCH DAY >30min ELENA ESPINAL RESIDENT Nov 08, 2024 15:24 KAY MORATAYA MD Nov 08, 2024 22:34
[2024-11-08 17:00] VITALS: BP 121/71; PULSE 75; RESP 18; TEMP 98.1; O2SAT 100
[2024-11-08] MEDS ORDERED: PIPERACILLIN-TAZOB 3.375GM 100 ML IV SCH (22:00)
== END 2024-11-08 18:49 | DRG 871 ==
LOC: EDBD 09:42 → ER 09:42 → OVERFLOW 14:29 → TELE-WESTW 21:19 → WEST WING 11-08 06:19
PROVIDERS: ADMIT Student in an Organized Health Care Education/Training Program; ATTEND Student in an Organized Health Care Education/Training Program
DX: A41.50 Gram-negative sepsis, unspecified (principal); E11.10 Type 2 diabetes mellitus with ketoacidosis without coma; I50.33 Acute on chronic diastolic (congestive) heart failure; J96.21 Acute and chronic respiratory failure with hypoxia; J15.69 Pneumonia due to other Gram-negative bacteria; J15.9 Unspecified bacterial pneumonia; K65.1 Peritoneal abscess; J44.0 Chronic obstructive pulmonary disease with (acute) lower respiratory infection; J44.1 Chronic obstructive pulmonary disease with (acute) exacerbation; E11.42 Type 2 diabetes mellitus with diabetic polyneuropathy; K21.9 Gastro-esophageal reflux disease without esophagitis; E66.01 Morbid (severe) obesity due to excess calories; E78.5 Hyperlipidemia, unspecified; I48.91 Unspecified atrial fibrillation; I11.0 Hypertensive heart disease with heart failure; F17.210 Nicotine dependence, cigarettes, uncomplicated; N20.0 Calculus of kidney; Z93.3 Colostomy status; Z90.710 Acquired absence of both cervix and uterus; Z87.442 Personal history of urinary calculi; Z82.5 Family history of asthma and other chronic lower respiratory diseases; Z79.82 Long term (current) use of aspirin; Z79.899 Other long term (current) drug therapy
CPT/HCPCS: 36415; 71045; 74177; 80048; 80053; 80061; 81001; 82010; 82962; 83036; 83605; 83880; 84484; 85025; 85048; 87040; 87045; 87081; 87427; 93005; 93306; 96365; 96375; 97110; 97163; 97530; 99291; 99292; G0378; J1815; J2405; J2470; J2543

== ENCOUNTER 2024-11-12 08:23 | Inpatient (IN) | payer MEDICARE, MEDICAID ==
[~2024-11-12] VITALS: Ht 152.4 cm; Wt 85.4 kg
[2024-11-12] VITALS (30 sets, daily range): BP systolic 89–128; BP diastolic 41–68; PULSE 110–140; RESP 14–32; TEMP 98.5–102; O2SAT 95–100
[~2024-11-12 08:23] MED LIST changes: +ATOR40TA52 PO; +LOS25T PO; -OMEP20TA37 OR
[2024-11-12] MEDS: LACTATED RINGER'S 1,350 ML IV ONE (08:30)
--- NOTE | 2024-11-12 08:39 | ECG ---
[facility] Test Date: 2024-11-12 Test Time: 08:33:44 Pat Name: LORENA PFEIFFER Department: ED Room: [address] [place] [address] Gender: F [employer] Supervisor: katty : [id number] Requested By: EMERGENCY EMERGENCY Order Number: [id number] Reading MD: Stuart Kay Measurements Intervals [place] Rate: 143 P: 237 MA: 82 QRS: 35 QRSD: 81 T: 3 QT: 326 QTc: 503 Interpretive Statements Sinus or ectopic atrial tachycardia Paired ventricular premature complexes Aberrant conduction of SV complex(es) Low voltage, precordial leads ST depression, probably rate related Prolonged QT interval Electronically Signed On 11-12-2024 20:38:21 PDT by Stuart Kay Please click the below link to view image of tracing.
--- NOTE | 2024-11-12 08:40 | ED.PDOC ---
Altered Mental Status HPI Comments 69 year old female MIGUEL presents to the ED with chief complaint of ALOC. EMS reports that patient was recently discharged to [facility] for pneumonia, sepsis, and DKA recovery. EMS relays that the patient was noted by staff today to have a fever with associated tachycardia and ALOC, unsure if it is her baseline. EMS states that the patient was on IV Azithromycin in the SNF. EMS notes patient's BG was at 234. Patient unable to answer questions at this time and is altered. Time Seen by MD: 08:33 Reviewed Notes: Nurses Notes, Blood Bank Custodian Notes, Medications, Allergies Allergies: Coded Allergies: NO KNOWN ALLERGIES (Unverified , 01/30/10) Home Meds Reported Medications Omeprazole (Omeprazole Dr) 20 Mg Cap, 1 CP PO DAILY for 90 Days, #90 11/07/24 Atenolol (Atenolol) 25 Mg Tab, 1 TAB PO DAILY for 90 Days, #90 11/07/24 Magnesium Oxide (Magnesium Oxide) 400 Mg Tab, 1 TAB PO BID for 30 Days, #60 11/07/24 Gabapentin (Gabapentin) 100 Mg Cap, 1 CAP PO DAILY for 90 Days, #90 11/07/24 Glyburide (Glyburide) 5 Mg Tab, 1 TAB PO BID for 90 Days, #180 11/07/24 Carisoprodol (Carisoprodol) 350 Mg Tab, 1 TAB PO BID PRN for 15 Days, #30 11/07/24 Varenicline Tartrate (Varenicline Tartrate) 1 Mg Tab, 1 TAB PO DAILY for 56 Days, #56 11/07/24 Evolocumab (Repatha Sureclick) 140 Mg/Ml Inj, 1 ML SC Q2WEEK for 28 Days, #2 11/07/24 Tirzepatide (Mounjaro) 12.5 Mg/0.5 Ml Inj, 12.5 MG SC QWEEKLY for 28 Days, #2 11/07/24 Ibuprofen Micronized (Ibuprofen) 800 Mg Tab, 1 TAB PO DAILY for 30 Days, #30 11/07/24 Insulin Glargine (Basaglar Kwikpen) 100 Unit/Ml Inj, 30 UNITS SC HS for 30 Days, #9 11/07/24 Potassium Chloride (Potassium Chloride ER) 20 Meq Tab, 1 TAB PO DAILY for 30 Days, #30 11/07/24 Cyanocobalamin (Vitamin B-12) 1,000 Mcg Tab, 1 TAB PO DAILY for 30 Days, #30 11/07/24 Aspirin (Aspirin Low Dose) 81 Mg Chw, 1 TAB PO DAILY for 30 Days, #30 11/07/24 Metoprolol Tartrate (LOPRESSOR TABLET) 50 Mg Tb, 1 TAB PO BID for 30 Days, #60 11/07/24 Metformin Hydrochloride (Metformin Hcl) 1,000 Mg Tab, 1 TAB PO BID for 30 Days, #60 11/07/24 Atorvastatin Calcium (ATORVASTATIN CALCIUM) 40 Mg Tab, 1 TAB PO DAILY 11/05/24 Losartan Potassium (Losartan Potassium) 25 Mg Tab, 1 TAB PO DAILY 11/05/24 Furosemide (Furosemide) 40 Mg Tab, 40 MG OR QAM 12/24/11 Aspirin (Asa) 81 Mg Ch, 81 MG GT QAM 12/24/11 Ibuprofen (Ibuprofen) 800 Mg Tab, 800 MG OR HS 12/24/11 Hydrocodone-Acetaminophen (Vicodin) 1 Tab Tab, 1 TAB OR Q4HP 01/31/10 Lorazepam (Ativan) 2 Mg Tab, 2 MG OR PRN 01/31/10 Cyclobenzaprine Hcl (Flexeril) 10 Mg Tb, 10 MG GT PRN 01/31/10 Budesonide-Formoterol Fumarate (Symbicort) 1 Aer Aer, 1 AER IN PRN 01/31/10 Atenolol (Atenolol) 25 Mg Tab, 25 MG OR BID 01/31/10 Information Source: Emergency Med Personnel Mode of Arrival: EMS Severity: Severe, Unable to Care for Self, Unresponsive Timing: Hours Duration: Since onset Prehospital treatment: 12 Lead EKG Quality: Decreased Alertness, Change in Behavior, Confusion Recent: Fever History of: Diabetes Past Medical History PAST MEDICAL HISTORY: CHF, COPD, DM, GERD, High Lipids, HTN, Kidney Stones Past Medical History (Other): MINOO, Migraines, DKA Surgical History: Hysterectomy Surgical History (Other): Colostomy CASEWORKER History: No Pertinent CASEWORKER History Family History Family History: Reviewed,noncontributory to illness Social History Smoker: Non-Smoker Alcohol: Denies ETOH Use Drugs: Denies Drug Use Lives In: Home Constitutional: reports: fever; denies: chills, diaphoresis, fatigue, malaise, sweats, weakness, others EENTM: denies: blurred vision, double vision, ear bleeding, ear discharge, ear drainage, ear pain, ear ringing, eye pain, eye redness, hearing loss, mouth pain, mouth swelling, nasal discharge, nose bleeding, nose congestion, nose pain, photophobia, tearing, throat pain, throat swelling, voice changes, others Respiratory: denies: cough, hemoptysis, orthopnea, SOB at rest, shortness of breath, SOB with excertion, stridor, wheezing, others Cardiovascular: reports: others (Tachycardia); denies: chest pain, dizzy spells, diaphoresis, Dyspnea on exertion, edema, irregular heart beat, left arm pain, lightheadedness, palpitations, PND, syncope Gastrointestinal: denies: abdomen distended, abdominal pain, blood streaked bowels, constipated, diarrhea, dysphagia, difficulty swallowing, hematemesis, melena, nausea, poor appetite, poor fluid intake, rectal bleeding, rectal pain, vomiting, others Genitourinary: denies: abnormal vagina bleeding, burning, dyspareunia, dysuria, flank pain, frequency, hematuria, incontinence, pain, , vagina discharge, urgency, others Neurological: denies: dizziness, fainting, headache, left sided numbness, left sided weakness, numbness, paresthesia, pre-existing deficit, right sided numbness, right sided weakness, seizure, speech problems, tingling, tremors, weakness, others Musculoskeletal: denies: back pain, gout, joint pain, joint swelling, muscle pain, muscle stiffness, neck pain, others Integumetry: denies: bruises, change in color, change in hair/nails, dryness, laceration, lesions, lumps, rash, wounds, others Allergic/Immunocompromised: denies: Difficulty Healing, Frequent Infections, Hives, Itching, others Hematologic/Lymphatic: denies: anemia, blood clots, easy bleeding, easy bruising, swollen glands, others Endocrine: denies: excessive hunger, excessive sweating, excessive thirst, excessive urination, flushing, intolerance to cold, intolerance to heat, unexplained weight gain, unexplained weight loss, others Psychiatric: denies: anxiety, bipolar disorder, depression, hopeless, panic disorder, schizophrenia, sleepless, suicidal, others Unable to Obtain due to: Altered Mental Status Physical Exam General Appearance: Obese HEENT: Normal ENT Inspection, Pharynx Normal, TMs Normal Neck: Full Range of Motion, Non-Tender, Normal, Normal Inspection Respiratory: Chest Non-Tender, Lungs Clear, No Accessory Muscle Use, Normal Breath Sounds, Other (Tachypneic) Cardiovascular: No Edema, No JVD, No Murmur, No Gallop, Normal Peripheral Pulses, Tachycardia Breast Exam: Deferred Gastrointestinal: No Organomegaly, Non Tender, No Pulsatile Mass, Normal Bowel Sounds, Soft, Other (Brown liquid stool in colostomy) Genitalia: Other (Stauffer catheter in place with yellow urine) Pelvic: Deferred Rectal: Deferred Extremities: No calf tenderness, Normal capillary refill, Normal inspection, Normal range of motion, Non-tender, No pedal edema Musculoskeletal : Apperance: Normal Neurologic: Alert, machine silver stripper II-XII nml as Tested, No Motor Deficits, Normal Affect, Normal Mood, No Sensory Deficits Cerebellar Function: Normal Reflexes: Normal Skin: Dry, Normal Color, Warm (to touch) Lymphatic: No Adenopathy EKG EKG : Pulse Rate (adult): 143 Fonda: Normal Cardiac Rhythm: ST Block: None Hypertrophy: None ST: Normal Comments Motion artifact, occasional PVCs. Was a procedure done? Was a procedure done?: Yes Sedation Sedation?: Yes Informed consent obtained: Yes Sedation start time: 09:50 Sedation end time: 09:55 Sedation total time: 5 minutes for intubation, but pt is on propofol drip since intubation Intubation Indication: Respiratory Insufficiency, Altered Mental Status, Airway Protection Prep: Preoxygenation Pretreated with: Sedation Medicated with: Other (40mg Etomidate, Propofol Drip) Intubation Approach: Orotracheal Intubation size: cm (8) Informed consent obtained: No Risks/benefits/alt described: No Notes pt was successfully intubated using a bougie to assist. a 7.0 ET is inserted, visualized passing the VCs. ET inserted at 20cm at the lower lip. condensation seem with each breath, CO2 detector color changed. bilateral BSs equal, no epigastric gurgling. O2 saturation in the high 90%. cx ordered and will be reviewed, cxr showed ET was too high. it was moved from 20 to 24cm at the lower lip, and repeat cxr shows ET in good position Differential Diagnosis (ALOC) Differential Diagnosis: Dehydration, Hypoglycemia, DKA, Encephalopathy, Meningitis, Sepsis, Hypoxemia, Seizure, Closed Head Injury, CVA, Mass Lesion, SAH, Drug Overdose, Heart Failure, Renal Failure, Other (chf, sepsis) X-Ray, Labs, Meds, VS Vital Signs Date Time Temp Pulse Resp B/P (MAP) Pulse Ox O2 Delivery O2 Flow Rate FiO2 11/12/24 12:30 121 25 128/71 (90) 95 11/12/24 12:15 119 15 116/74 (88) 97 11/12/24 12:00 120 18 108/67 (81) 95 30 11/12/24 12:00 120 11/12/24 12:00 120 18 108/67 (81) 95 11/12/24 11:45 120 17 115/64 (81) 95 11/12/24 11:30 129 17 125/68 (87) 96 11/12/24 11:15 119 17 121/64 (83) 97 11/12/24 11:00 128 17 118/66 (83) 97 11/12/24 10:45 120 20 106/61 (76) 97 11/12/24 10:30 132 17 141/82 (101) 97 11/12/24 10:20 102.0 110 19 110/57 96 60 102.0 11/12/24 10:15 126 20 131/80 (97) 98 11/12/24 10:09 130 19 110/57 (74) 96 60 11/12/24 09:57 135/87 11/12/24 09:56 142 30 135/87 (103) 88 11/12/24 09:48 147/130 11/12/24 09:00 133 30 135/57 (83) 88 11/12/24 08:41 144 30 129/54 (79) 90 11/12/24 08:40 143 11/12/24 08:38 142 11/12/24 08:35 102.0 139 57 143/92 (109) 94 102.0 11/12/24 08:33 143 Lab Test 11/12/24 12:23 11/12/24 11:53 11/12/24 11:12 11/12/24 10:05 Range/Units Urine Color Colorless Yellow Urine Clarity Clear Clear Urine pH 5.0 5.0-9.0 Urine Specific [place] 1.007 1.001-1.035 Urine Protein Negative Negative Urine Ketones Negative Negative Urine Blood 3+ H Negative /uL Urine Nitrite Negative Negative Urine Bilirubin Negative Negative Urine Urobilinogen Normal Negative mg/dL Urine Leukocyte Esterase Trace Negative /uL Urine RBC 104 0 - 4 /hpf Urine Microscopic WBC 6 H 0-5 /HPF Urine Squamous Epithelial Cells Few <5 /hpf Urine Uric Acid Crystals Few None Seen /hpf Urine Bacteria None seen None Seen /hpf Urine Mucus Few None Seen Urine Glucose 2+ H Normal mg/dL Troponin I High Sensitivity 47 *H 47 *H </=34 ng/L Blood Gas Specimen Type Arterial Blood Gas Sample Site Left radial Blood Gas Patient Temperature 37.0 Arterial Blood Date Drawn [id number] Arterial Blood pH 7.432 7.350-7.450 Arterial Blood Partial Pressure CO2 34.3 32.0-45.0 mmHg Arterial Blood Partial Pressure O2 216.0 H 83.0-108.0 mmHg Arterial Blood HCO3 22.4 21.0-28.0 mmol/L Arterial Blood Oxygen Saturation 99.2 H 94.0-98.0 % Arterial Blood Base Excess -1.2 -2.0-3.0 mmol/L Arterial Blood Oxyhemoglobin 97.8 94.0-98.0 % Arterial Blood Carboxyhemoglobin 0.5 0.5-1.5 % Arterial Blood Methemoglobin 0.9 0.0-1.5 % James Test Modified Blood Gas Total Hemoglobin 14.70 12.0-16.0 g/dL Blood Gas Set Respiration Rate 14.0 Blood Gas Modality Vent - ac FiO2 % 60.0 Blood Gas Tidal Volume 500.0 Blood Gas PEEP or CPAP 5.0 Lactic Acid Level 2.3 *H 0.4-2.0 mmol/L Ammonia 19 11-32 umol/L Test 11/12/24 09:14 11/12/24 08:49 11/12/24 08:46 Range/Units Prothrombin Time 13.5 H 9.3-11.8 sec Prothrombin Time INR 1.31 H 0.9-1.15 Activated Partial Thromboplast Time 26.7 24.5-34.5 SEC White Blood Count 25.4 #H 4.4-10.8 10^3/uL Red Blood Count 4.84 4.0-5.20 10^6/uL Hemoglobin 14.6 12.2-16.2 g/dL Hematocrit 44.0 # 36.0-46.0 % Mean Corpuscular Volume 90.8 80.0-100.0 fL Mean Corpuscular Hemoglobin 30.2 28.0-32.0 pg Mean Corpuscular Hemoglobin Concent 33.2 32.0-36.0 g/dL Red Cell Distribution Width 13.5 11.8-14.3 % Platelet Count 356 140-450 10^3/uL Mean Platelet Volume 8.4 6.9-10.8 fL Neutrophils (%) (Auto) 37.0-80.0 % Lymphocytes (%) (Auto) 10.0-50.0 % Monocytes (%) (Auto) 0.0-12.0 % Basophils (%) (Auto) 0.0-2.0 % Neutrophils # (Auto) 1.6-8.6 10 ^3/uL Lymphocytes # (Auto) 0.4-5.4 10 ^3/uL Monocytes # (Auto) 0-1.3 10 ^3/uL Differential Total Cells Counted 100.0 100 Neutrophils % (Manual) 74 37.0-80.0 Band Neutrophils % (Manual) 4 Lymphocytes % (Manual) 15 10.0-50.0 Monocytes % (Manual) 7 0-12 Eosinophils % (Manual) 0 0-7 Basophils % (Manual) 0 0.0-2.0 Metamyelocytes % (manual) 0 Myelocytes % (Manual) 0 Promyelocytes % (Manual) 0 Blast Cells % (Manual) 0 Reactive Lymphocytes 0 Platelet Estimate Adequate Sodium Level 144 # 136-145 mmol/L Potassium Level 2.9 L 3.5-5.1 mmol/L Chloride Level 109 H 98-107 mmol/L Carbon Dioxide Level 20 20-31 mmol/L Anion Gap 15 5-15 Blood Urea Nitrogen 7 L 9-23 mg/dL Creatinine 0.59 0.550-1.02 mg/dL Glomerular Filtration Rate Calc 99 >90 mL/min BUN/Creatinine Ratio 11.9 10.0-20.0 Serum Glucose 218 H 74-106 mg/dL Serum Osmolality 300 H 278-298 mOsm/kg Lactic Acid Level 2.3 *H 0.4-2.0 mmol/L Calcium Level 8.5 L 8.7-10.4 mg/dL Total Bilirubin 0.4 0.2-1.0 mg/dL Aspartate Amino Transferase (AST) 21 13-40 U/L Alanine Aminotransferase (ALT) 22 7-40 U/L Alkaline Phosphatase 66 46-116 U/L Troponin I High Sensitivity 39 *H </=34 ng/L Total Protein 6.5 5.7-8.2 g/dL Albumin 3.3 3.2-4.8 g/dL Beta-Hydroxybutyric Acid 2.945 H < 0.4 mmol/L Blood Gas Specimen Type Arterial Blood Gas Sample Site Left radial Blood Gas Patient Temperature 37.0 Arterial Blood Date Drawn [id number] Arterial Blood pH 7.481 H 7.350-7.450 Arterial Blood Partial Pressure CO2 29.5 L 32.0-45.0 mmHg Arterial Blood Partial Pressure O2 56.9 L 83.0-108.0 mmHg Arterial Blood HCO3 21.5 21.0-28.0 mmol/L Arterial Blood Oxygen Saturation 91.1 L 94.0-98.0 % Arterial Blood Base Excess -0.7 -2.0-3.0 mmol/L Arterial Blood Oxyhemoglobin 89.7 L 94.0-98.0 % Arterial Blood Carboxyhemoglobin 1.0 0.5-1.5 % Arterial Blood Methemoglobin 0.5 0.0-1.5 % James Test Yes Blood Gas Total Hemoglobin 15.50 12.0-16.0 g/dL Blood Gas Liter Flow 6.00 Blood Gas Modality Nasal cannula FiO2 % 44.0 Current Medications Medications (Trade) Dose Ordered Sig/Purvi Route Start Time Stop Time Status Last Admin Lactated Ringer's 1,350 ml @ 1,350 mls/hr ONCE ONCE IV 11/12/24 08:30 11/12/24 09:29 DC 11/12/24 08:30 Diagnostic Test (Pha) (Accu-Chek Comfort Curve T) 1 strip Q90MIN 11/12/24 09:00 11/12/24 11:59 Insulin Glargine (Lantus) 15 units ONCE ONCE SC 11/12/24 08:45 11/12/24 08:58 DC 11/12/24 09:06 Piperacillin Sod/ Tazobactam Sod 100 ml @ 25 mls/hr ONCE ONCE IV 11/12/24 09:15 11/12/24 13:14 DC 11/12/24 09:29 Potassium Chloride 50 ml @ 25 mls/hr Q2H IV 11/12/24 11:00 11/12/24 14:59 11/12/24 11:22 Magnesium Sulfate/ Dextrose 100 ml @ 100 mls/hr ONCE ONCE IV 11/12/24 09:45 11/12/24 10:44 DC 11/12/24 11:18 Etomidate 40 mg ONCE ONCE IV 11/12/24 09:45 11/12/24 09:46 DC 11/12/24 09:51 Propofol 100 ml @ 2.67 mls/hr Q24H IV 11/12/24 09:45 11/12/24 09:57 Furosemide (Lasix Injection) 40 mg ONCE ONCE IV 11/12/24 09:45 11/12/24 09:46 DC 11/12/24 09:48 Sodium Chloride 100 ml @ 50 mls/hr Q2H IV 11/12/24 11:00 11/12/24 14:59 11/12/24 11:22 Diphenhydramine HCl (Benadryl Injection) 50 mg ONCE ONCE IV 11/12/24 12:00 11/12/24 12:01 DC 11/12/24 12:03 Famotidine (Pepcid Injection) 20 mg ONCE ONCE IV 11/12/24 12:00 11/12/24 12:01 DC 11/12/24 12:03 Chest XR:FINDINGS: Lines and tubes: None Cardiomediastinal silhouette: Enlarged Pulmonary vasculature: Prominent Lung expansion: normal Lung airspace: Prominent Lung interstitium: normal Pleura: normal Pneumothorax: no Bones: Unremarkable Other: no IMPRESSION: Cardiomegaly with pulmonary vascular congestion and possible pulmonary edema. Images Reviewed?: Images reviewed and evaluated by me Time of 1ST Reevaluation: 09:33 Reevaluation 1ST: Unchanged Time of 2ND Reevaluation: 10:43 Reevaluation 2ND: Improved Patient Education/Counseling: Diagnosis, Treatment, Prognosis, Need For Follow Up, Other (altered) Family Education/Counseling: No Family Present Additional Information Previous visits: 11/05/24 for DKA, Sepsis, and Pneumonia The following tests were ordered, and results were reviewed by me: CT Abd/Pel, CXR, EKG, Acetone, Osmolality, Troponin, Lactic, UA, CMP, CBC, Blood Culture, Urine Culture Additional Information was gathered from interviewing the following independent historians: EMS I reviewed and agreed with the following test results read by other providers: CXR and CT Abd/Pel I discussed treatment and results with medical personnel and: Patient Comprehensive systems review obtained and negative except for what is stated in the HPI. pt remains altered, she is full code and cannot protect her airway, so i will intubate her. she is volume overloaded, so only 500cc LR was given and i will have to diurese her instead. pt was altered, not protecting airway. pt was intubated successfully. she is septic and has early signs of HONKS but not acidotic. she also shows CHF on cxr. Sepsis Sepsis Reasesment Focused Exam Sepsis focused exam: focus exam completed (pt is not hypotensive, cap refill < 2secs, but mentation is decreased. cxr shows chf. pt has received 500cc LR and i will stop further volume repletion, but to volume overload), time: (936) Departure 1 Departure Time of Disposition: 13:24 Impression: Primary Impression: Altered mental status Qualified Codes: R40.0 - Somnolence Additional Impressions: Encephalopathy Qualified Codes: G93.41 - Metabolic encephalopathy Respiratory failure Qualified Codes: J96.01 - Acute respiratory failure with hypoxia Sepsis Qualified Codes: A41.9 - Sepsis, unspecified organism; R65.20 - Severe sepsis without septic shock; J96.01 - Acute respiratory failure with hypoxia Hyperglycemia Congestive heart failure Qualified Codes: I50.21 - Acute systolic (congestive) heart failure Hyperosmolar nonketotic coma in diabetes Disposition: ADMITTED INPATIENT Admit to: ICU Condition: Critical Critical Care Note Critical Care Time?: Yes (1 hr-critical care time only) Critical care comment: Due to concerns for patient�s condition deteriorating, the care required my highest level of attention and readiness to intervene. I assessed the patient, reviewed the medical records, ordered the appropriate tests and treatments, then reassessed for results and responsiveness. I communicated with medical personnel and consultants and formulated a plan of care. Total critical care time excludes any procedures Stability Stability form required: No Heart Score Heart Score: Heart Score Response (Comments) Value History N/A 0 EKG N/A 0 Age N/A 0 Risk Factors N/A 0 Troponin N/A 0 Total 0 I personally scribed for BENITEZ SEO MD (FORM[facility]LY [facility]) on 11/12/24 at 08:40. Electronically submitted by Long Howe ([facility]). I personally scribed for BENITEZ SEO MD (FORM[facility]LY [facility]) on 11/12/24 at 08:42. Electronically submitted by Long Howe ([facility]). I personally scribed for BENITEZ SEO MD ([facility]LY [facility]) on 11/12/24 at 09:49. Electronically submitted by Long Howe ([facility]). I personally scribed for BENITEZ SEO MD ([facility]LY [facility]) on 11/12/24 at 09:54. Electronically submitted by Long Howe ([facility]). I personally scribed for BENITEZ SEO MD ([facility]) on 11/12/24 at 09:59. Electronically submitted by Long Howe ([facility]). BENITEZ SEO MD Nov 12, 2024 08:40
[2024-11-12] MEDS: INSULIN DRIP 100 UNIT/100ML 100 ML IV SCH (08:45)
[2024-11-12] MEDS ORDERED: DEXTROSE (50%) 50ML SYRG IV PRN ×2 (08:45→13:15)
[2024-11-12] MEDS ORDERED: VANCOMYCIN PER PHARMACY 0 MG IV SCH ×2 (08:45→13:00)
[2024-11-12 08:53] LABS: Base Excess -0.7 mmol/L (-2.0-3.0)
[2024-11-12] MEDS: ACCU-CHEK COMFORT CURVE STRIP VI SCH ×2 (09:00→18:13)
[2024-11-12] MEDS: INSULIN LANTUS (GLARGINE) 1 /0.01ml (100units/ml) SC ONE (09:06)
[2024-11-12 09:10] LABS: Hemoglobin 14.6 g/dL (12.2-16.2); Mean Corpuscular Hemoglobin 30.2 pg (28.0-32.0); Mean Corpuscular Hgb Conc. 33.2 g/dL (32.0-36.0); Mean Corpuscular Volume 90.8 fL (80.0-100.0); Platelet Count (auto) 356 10^3/uL (140-450); Red Blood Cells 4.84 10^6/uL (4.0-5.20); Red Cell Distribution Width 13.5 % (11.8-14.3); White Blood Cell 25.4 10^3/uL (4.4-10.8)
[2024-11-12 09:13] LABS: Basophils % (manual) 0 (0.0-2.0); Blast Cells 0; Eosinophils % (manual) 0 (0-7); Metamyelocytes % 0; Myelocytes % 0; Promyelocytes % 0; Reactive Lymphocytes 0
--- NOTE | 2024-11-12 09:23 | DVH ---
XY CHEST PORTABLE, HISTORY: fever COMPARISON: XY CHEST PORTABLE on DOS: 11/05/24 XY CHEST PORTABLE on DOS: 11/05/24 TECHNICAL DATA: 1 view of the chest was obtained. FINDINGS: Lines and tubes: None Cardiomediastinal silhouette: Enlarged Pulmonary vasculature: Prominent Lung expansion: normal Lung airspace: Prominent Lung interstitium: normal Pleura: normal Pneumothorax: no Bones: Unremarkable Other: no IMPRESSION: Cardiomegaly with pulmonary vascular congestion and possible pulmonary edema.
[2024-11-12 09:24] LABS: Alanine Aminotransferase 22 U/L (7-40); Albumin 3.3 g/dL (3.2-4.8); Alkaline Phosphatase 66 U/L (46-116); Anion Gap 15 (5-15); Aspartate Aminotransferase 21 U/L (13-40); BUN/Creatinine Ratio 11.9 (10.0-20.0); Bilirubin, Total 0.4 mg/dL (0.2-1.0); Blood Urea Nitrogen 7 mg/dL (9-23); Calcium 8.5 mg/dL (8.7-10.4); Carbon Dioxide 20 mmol/L (20-31); Chloride 109 mmol/L (98-107); Glucose 218 mg/dL (74-106); Potassium 2.9 mmol/L (3.5-5.1); Sodium 144 mmol/L (136-145); Total Protein 6.5 g/dL (5.7-8.2)
[2024-11-12] MEDS: PIPERACILLIN-TAZOB 3.375GM 100 ML IV ONE (09:29)
[2024-11-12 09:30] LABS: Lactic Acid w/Reflex 2.3 mmol/L (0.4-2.0)
[2024-11-12 09:45] LABS: Band Neutrophils % (manual) 4; Lymphocytes % (manual) 15 (10.0-50.0); Monocytes % (manual) 7 (0-12); Platelet Estimate Adequate
[2024-11-12] MEDS: ETOMIDATE (2MG/ML) 20ML VIAL IV ONE ×2 (09:45→09:51)
[2024-11-12] MEDS: PROPOFOL 100 ML IV ONE (09:45)
[2024-11-12 09:46] LABS: INR 1.31 (0.9-1.15); Partial Thromboplastin Time 26.7 SEC (24.5-34.5); Prothrombin Time 13.5 sec (9.3-11.8)
[2024-11-12] MEDS: FUROSEMIDE 40 MG/4 ML VIAL IV ONE (09:48)
[2024-11-12] MEDS: PROPOFOL 100 ML IV SCH (09:57)
[2024-11-12] MEDS ORDERED: VANCOMYCIN 1GM/200ML PM 200 ML IV SCH (10:00)
--- NOTE | 2024-11-12 11:08 | DVH ---
CLINICAL INFORMATION: 69 years old, Female; Intubation. TECHNIQUE: Single AP portable chest radiograph was obtained. COMPARISON: Chest radiograph dated 10/23/2024 at 8:36 a.m.. FINDINGS: Endotracheal tube in satisfactory position, approximately 4 cm above the kerry. Bilateral interstiti al opacities are unchanged. No pneumothorax. Prominence of the pulmonary vasculature again noted with similar-appearing cardiomegaly. IMPRESSION: 1. Satisfactory positioning of the endotracheal tube. 2. No other significant interval change.
[2024-11-12] MEDS: MAGNESIUM SULFATE 1GM/100ML 100 ML IV ONE ×2 (11:18→21:27)
[2024-11-12 11:20] LABS: Base Excess -1.2 mmol/L (-2.0-3.0)
[2024-11-12] MEDS: SODIUM CHL 0.9% 100 ML IV SCH (11:22)
[2024-11-12] MEDS: POTASSIUM CHL 20MEQ/50ML 50 ML IV SCH (11:22)
[2024-11-12] MEDS: FAMOTIDINE (10MG/ML) 2ML VL IV ONE (12:03)
[2024-11-12] MEDS: diphenhdrAMINE HCL 50 MG/1 ML VL IV ONE (12:03)
[2024-11-12] MEDS: VANCOMYCIN 1GM/200ML PM 250 ML IV SCH (12:15)
[2024-11-12 12:25] LABS: Urine Bacteria None Seen /hpf (None Seen)
[2024-11-12 12:55] LABS: Urine Blood 3+ /uL (Negative); Urine Clarity Clear (Clear); Urine Color Colorless (Yellow); Urine Mucus FEW (None Seen); Urine Protein, UAD Negative (Negative); Urine Specific Gravity 1.007 (1.001-1.035); Urine Squamous Epithelial Cell FEW /hpf (<5); Urine Urobilinogen Normal (Negative); Urine WBC 6 /HPF (0-5)
[2024-11-12] MEDS ORDERED: MAGNESIUM SULFATE 1GM/100ML 100 ML IV ONE (13:00)
[2024-11-12] MEDS ORDERED: POTASSIUM CHL 20MEQ/100ML 100 ML IV SCH (13:00)
[2024-11-12] MEDS ORDERED: IPRATROPIUM BROM 0.5 MG/2.5ML INH SOL NEB PRN (13:00)
[2024-11-12] MEDS ORDERED: ALBUTEROL SULF 2.5 MG/0.5ML(0.5%) NEB SOLN NEB PRN (13:00)
[2024-11-12] MEDS ORDERED: SODIUM CHLORIDE 0.9% 1,000 ML IV SCH (13:00)
--- NOTE | 2024-11-12 13:41 | DVHHP2 ---
History of Present Illness Reason for Visit: ALOC History of Present Illness This 69-year-old female presents in the ED with a chief complaint of ALOC. Upon assessment, the patient currently intubated. Medical record obtained from nursing staff and medical records. EMS reports that patient was recently discharged to [facility] for pneumonia, sepsis, and DKA recovery. EMS relays that the patient was noted by staff today to have a fever with associated tachycardia and ALOC, unsure if it is her baseline. EMS states that the patient was on IV Azithromycin in the SNF. EMS notes patient's BG was at 234. Patient unable to answer questions at this time and is altered. Past Medical History COPD Hypertension Diabetes type 2 Hyperlipidemia Diverticulitis s/p colostomy GERD Past Surgical History Colostomy Family History Unknown Past Social History Unknown Review of Systems Review of Systems ROS see HPI Allergies: Coded Allergies: Piperacillin (Verified Allergy, Intermediate, 11/12/24) hives Tazobactam (Verified Allergy, Intermediate, 11/12/24) hives Medications Current Medications Medications Dose Ordered Sig/Purvi Route Start Time Stop Time Status Last Admin Dose Admin Norepinephrine Bitartrate 250 ml @ 3.75 mls/hr Q24H IV 11/12/24 08:30 Vancomycin HCl 200 ml @ 200 mls/hr Q12HR IV 11/12/24 10:00 UNV Piperacillin Sod/ Tazobactam Sod 100 ml @ 25 mls/hr Q8H IV 11/12/24 17:00 Insulin Human (Reg)/Sodium Chloride 100 ml @ 0.5 mls/hr Q24H IV 11/12/24 08:45 Dextrose 50 ml UD PRN IV 11/12/24 08:45 Diagnostic Test (Pha) 1 strip Q90MIN 11/12/24 09:00 11/12/24 11:59 1 STRIP Insulin Glargine 15 units DAILY SC 11/13/24 10:00 Future Hold Vancomycin HCl 0 ml @ 0 mls/hr UD IV 11/12/24 08:45 Potassium Chloride 50 ml @ 25 mls/hr Q2H IV 11/12/24 11:00 11/12/24 14:59 11/12/24 11:22 25 MLS/HR Propofol 100 ml @ 2.67 mls/hr Q24H IV 11/12/24 09:45 11/12/24 09:57 2.67 MLS/HR Sodium Chloride 100 ml @ 50 mls/hr Q2H IV 11/12/24 11:00 11/12/24 14:59 11/12/24 11:22 50 MLS/HR Vancomycin HCl 250 ml @ 250 mls/hr Q1H IV 11/12/24 11:45 11/12/24 13:44 Sodium Chloride 1,000 ml @ 60 mls/hr [id number] IV 11/12/24 13:00 UNV Enoxaparin Sodium 40 mg DAILY SC 11/13/24 10:00 UNV Vancomycin HCl 0 ml @ 0 mls/hr UD IV 11/12/24 13:00 UNV Piperacillin Sod/ Tazobactam Sod 100 ml @ 25 mls/hr Q8HR IV 11/12/24 14:00 UNV Albuterol 2.5 mg Q4HPRN PRN NEB 11/12/24 13:00 UNV Albuterol 2.5 mg Q6HR NEB 11/12/24 18:00 UNV Ipratropium [place] 0.5 mg Q4HPRN PRN NEB 11/12/24 13:00 UNV Ipratropium [place] 0.5 mg Q6HR NEB 11/12/24 18:00 UNV Furosemide 40 mg DAILY IV 11/13/24 10:00 UNV Potassium Chloride 100 ml @ 50 mls/hr Q2H IV 11/12/24 13:00 11/12/24 16:59 UNV Diagnostic Test (Pha) 1 strip Q6HR 11/12/24 18:00 UNV Insulin Human Regular Q6HR SC 11/12/24 18:00 UNV Dextrose 50 ml UD PRN IV 11/12/24 13:15 UNV Insulin Glargine 14 units HS SC 11/12/24 22:00 UNV Exam Vital Signs Vital Signs Date Time Temp Pulse Resp B/P (MAP) Pulse Ox O2 Delivery O2 Flow Rate FiO2 11/12/24 12:30 121 25 128/71 (90) 95 11/12/24 12:00 30 11/12/24 10:20 102.0 102.0 General Appearance: Other (Obese, intubated) HEENT: Atraumatic, PERRLA Respiratory: Other (Rales, FiO2 30%) Cardiovascular: Normal S1, Normal S2 Abdominal: Soft, Other (Colostomy) Extremities: No clubbing, No cyanosis, No edema Skin: No rashes Labs/Xrays Labs Test 11/12/24 12:23 11/12/24 11:53 11/12/24 11:12 11/12/24 10:05 Range/Units Urine Color Colorless Yellow Urine Clarity Clear Clear Urine pH 5.0 5.0-9.0 Urine Specific [place] 1.007 1.001-1.035 Urine Protein Negative Negative Urine Ketones Negative Negative Urine Blood 3+ H Negative /uL Urine Nitrite Negative Negative Urine Bilirubin Negative Negative Urine Urobilinogen Normal Negative mg/dL Urine Leukocyte Esterase Trace Negative /uL Urine RBC 104 0 - 4 /hpf Urine Microscopic WBC 6 H 0-5 /HPF Urine Squamous Epithelial Cells Few <5 /hpf Urine Uric Acid Crystals Few None Seen /hpf Urine Bacteria None seen None Seen /hpf Urine Mucus Few None Seen Urine Glucose 2+ H Normal mg/dL Troponin I High Sensitivity 47 *H </=34 ng/L Blood Gas Specimen Type Arterial Blood Gas Sample Site Left radial Blood Gas Patient Temperature 37.0 Arterial Blood Date Drawn [id number] Arterial Blood pH 7.432 7.350-7.450 Arterial Blood Partial Pressure CO2 34.3 32.0-45.0 mmHg Arterial Blood Partial Pressure O2 216.0 H 83.0-108.0 mmHg Arterial Blood HCO3 22.4 21.0-28.0 mmol/L Arterial Blood Oxygen Saturation 99.2 H 94.0-98.0 % Arterial Blood Base Excess -1.2 -2.0-3.0 mmol/L Arterial Blood Oxyhemoglobin 97.8 94.0-98.0 % Arterial Blood Carboxyhemoglobin 0.5 0.5-1.5 % Arterial Blood Methemoglobin 0.9 0.0-1.5 % James Test Modified Blood Gas Total Hemoglobin 14.70 12.0-16.0 g/dL Blood Gas Set Respiration Rate 14.0 Blood Gas Modality Vent - ac FiO2 % 60.0 Blood Gas Tidal Volume 500.0 Blood Gas PEEP or CPAP 5.0 Lactic Acid Level 2.3 *H 0.4-2.0 mmol/L Ammonia 19 11-32 umol/L Test 11/12/24 09:14 11/12/24 08:49 11/12/24 08:46 Range/Units Prothrombin Time 13.5 H 9.3-11.8 sec Prothrombin Time INR 1.31 H 0.9-1.15 Activated Partial Thromboplast Time 26.7 24.5-34.5 SEC White Blood Count 25.4 #H 4.4-10.8 10^3/uL Red Blood Count 4.84 4.0-5.20 10^6/uL Hemoglobin 14.6 12.2-16.2 g/dL Hematocrit 44.0 # 36.0-46.0 % Mean Corpuscular Volume 90.8 80.0-100.0 fL Mean Corpuscular Hemoglobin 30.2 28.0-32.0 pg Mean Corpuscular Hemoglobin Concent 33.2 32.0-36.0 g/dL Red Cell Distribution Width 13.5 11.8-14.3 % Platelet Count 356 140-450 10^3/uL Mean Platelet Volume 8.4 6.9-10.8 fL Neutrophils (%) (Auto) 37.0-80.0 % Lymphocytes (%) (Auto) 10.0-50.0 % Monocytes (%) (Auto) 0.0-12.0 % Basophils (%) (Auto) 0.0-2.0 % Neutrophils # (Auto) 1.6-8.6 10 ^3/uL Lymphocytes # (Auto) 0.4-5.4 10 ^3/uL Monocytes # (Auto) 0-1.3 10 ^3/uL Differential Total Cells Counted 100.0 100 Neutrophils % (Manual) 74 37.0-80.0 Band Neutrophils % (Manual) 4 Lymphocytes % (Manual) 15 10.0-50.0 Monocytes % (Manual) 7 0-12 Eosinophils % (Manual) 0 0-7 Basophils % (Manual) 0 0.0-2.0 Metamyelocytes % (manual) 0 Myelocytes % (Manual) 0 Promyelocytes % (Manual) 0 Blast Cells % (Manual) 0 Reactive Lymphocytes 0 Platelet Estimate Adequate Sodium Level 144 # 136-145 mmol/L Potassium Level 2.9 L 3.5-5.1 mmol/L Chloride Level 109 H 98-107 mmol/L Carbon Dioxide Level 20 20-31 mmol/L Anion Gap 15 5-15 Blood Urea Nitrogen 7 L 9-23 mg/dL Creatinine 0.59 0.550-1.02 mg/dL Glomerular Filtration Rate Calc 99 >90 mL/min BUN/Creatinine Ratio 11.9 10.0-20.0 Serum Glucose 218 H 74-106 mg/dL Serum Osmolality 300 H 278-298 mOsm/kg Calcium Level 8.5 L 8.7-10.4 mg/dL Total Bilirubin 0.4 0.2-1.0 mg/dL Aspartate Amino Transferase (AST) 21 13-40 U/L Alanine Aminotransferase (ALT) 22 7-40 U/L Alkaline Phosphatase 66 46-116 U/L Total Protein 6.5 5.7-8.2 g/dL Albumin 3.3 3.2-4.8 g/dL Beta-Hydroxybutyric Acid 2.945 H < 0.4 mmol/L Blood Gas Liter Flow 6.00 PROCEDURE(s): CXRP - CHEST PORTABLE REASON: fever ORDER NUMBER(s): [id number], ACCESSION NUMBER(s): [id number] XY CHEST PORTABLE, HISTORY: fever COMPARISON: XY CHEST PORTABLE on DOS: 11/05/24 XY CHEST PORTABLE on DOS: 11/05/24 TECHNICAL DATA: 1 view of the chest was obtained. FINDINGS: Lines and tubes: None Cardiomediastinal silhouette: Enlarged Pulmonary vasculature: Prominent Lung expansion: normal Lung airspace: Prominent Lung interstitium: normal Pleura: normal Pneumothorax: no Bones: Unremarkable Other: no IMPRESSION: Cardiomegaly with pulmonary vascular congestion and possible pulmonary edema. Assessment/Plan Assessment/Plan # Sepsis, likely due pneumonia # metabolic encephalopathy Admit ICU Empiric antibiotic vanco and Zosyn Ramos cultures IV fluid # acute on chronic respiratory failure # possible COPD exacerbation # pulmonary congestion # MINOO Continue with vent setting titrate FiO2 to keep O2 sat >90% IV diuresis Med neb tx Repeat x-ray in a.m. # acute hypokalemia Replete electrolytes Continue with Mag oxide Repeat BMP in 6 hr IV fluid # elevated troponin, likely due to sepsis Monitor troponin and ECG # diabetes type 2 with hyperglycemia, A1c 7.8 Sliding scale Long-acting insulin Glipizide Monitor for DKA # hypertension Continue home meds when BP stabilizes # hx of diverticulitis s/p colostomy # GERD PPI # obesity DVT prophylaxis Medical plan discussed with RN Plan discussed with: Patient, Other (RN) My Orders Orders - YU SHELDON Procedure Category Date Status Time Admit ADMIT 11/12/24 Transmitted 12:48 Code Status CODE 11/12/24 Transmitted 12:48 Sodium Chloride 0.9% PHA 11/12/24 Logged 13:00 Enoxaparin Sodium PHA 11/13/24 Logged (Lovenox) 10:00 Comprehensive LAB 11/13/24 Verified Metabolic Panel 04:00 Condition: Serious KAVON 11/12/24 In Process 12:48 Vancomycin Per PHA 11/12/24 Logged Pharmacy 13:00 Piperacillin-Tazob PHA 11/12/24 Logged 3.375gm (Zosyn 3.375g 14:00 Albuterol Medneb PHA 11/12/24 Logged (Ventolin Medneb) 13:00 Albuterol Medneb PHA 11/12/24 Logged (Ventolin Medneb) 18:00 Ipratropium Medneb PHA 11/12/24 Logged (Atrovent Medneb) 13:00 Ipratropium Medneb PHA 11/12/24 Logged (Atrovent Medneb) 18:00 Furosemide Injection PHA 11/13/24 Logged (Lasix Injection) 10:00 Potassium Chl PHA 11/12/24 Logged 20meq/100ml 13:00 Magnesium Sulfate PHA 11/12/24 Logged 1gm/100ml 13:00 Magnesium LAB 11/12/24 Logged 12:48 Chest Xray 1 View XY 11/13/24 Logged 04:00 Glucose Blood PHA 11/12/24 Logged (Accu-Chek Comfort 18:00 Insulin R (Human) PHA 11/12/24 Logged (Insulin R) 18:00 Dextrose 50% Syringe PHA 11/12/24 Logged 13:15 Insulin Lantus PHA 11/12/24 Logged (Glargine) (Lantus) 22:00 Basic Metabolic Panel LAB 11/12/24 Logged 18:00 Date of Service: Nov 12, 2024 Billing Provider: YU SHELDON Common Visit Codes: 02410-[id number] INP/OBS CARE (HIGH) Consultation Codes: [id number] CONSULT <60MIN YU SHELDON Nov 12, 2024 13:41
[2024-11-12] MEDS: LIDOCAINE 1% (LOCAL ANESTH.) PF 5ml SDV ID ONE (13:55)
--- NOTE | 2024-11-12 13:58 | DVH ---
CT HEAD WITHOUT CONTRAST INDICATION: altered : 69 old Female altered EXAM DATE: 11/12/2024 01:13 PM COMPARISON: None RADIATION DOSE: CTDIvol: 62.19 mGy, DLP: 1121.11 mGy*cm PROCEDURE: CT scans of the head were obtained from the vertex to the skull base. Sagittal and coronal reconstructions were provided. All CT scans at this medical facility are performed using dose modulation techniques as appropriate t o a performed exam including the following: Automated exposure control was utilized; adjustment of th e MA and/or KV according to patient size; and use of iterative reconstruction technique. FINDINGS: There is sulcal and ventricular prominence. The brainshows normal morphology and gross-whi te matter differentiation, without intracranial hemorrhage, extra-axial fluid collection, mass effect or acute large vessel infarct. The ventricles are normal in size. The basal cisterns are patent. The skull and visible facial bones are intact. The paranasal sinuses, mastoid air cells and middle ear c avities are well-aerated. The soft tissues of the scalp are unremarkable. IMPRESSION: No acute intracranial abnormality.
[2024-11-12] MEDS ORDERED: PIPERACILLIN-TAZOB 3.375GM 100 ML IV SCH ×2 (14:00→17:00)
--- NOTE | 2024-11-12 14:36 | DVH ---
Procedure: CT CT AB PEL WO CON-NO ORAL OR IV 11/12/2024 01:15 PM Indication: sepsis Comparison Study: CT scan dated 11/07/2024 Technique: Axial images were obtained and reformatted in coronal and sagittal planes. All CT scans at this medical facility are performed using dose modulation techniques as appropriate to a performed e xam including the following: Automated exposure control was utilized; adjustment of the MA and/or KV according to patient size; and use of iterative reconstruction technique. CT Dose: CTDI volume is 24. 07 mGy. Dose-length product is 1288.23 mGy*cm FINDINGS: Lower Chest: Bilateral lower lobes pulmonary opacities are seen. No pleural effusion. The heart is no rmal in size. Coronary artery calcification noted. Hepatobiliary: Mild hepatomegaly and hepatic steatosis. Slight irregularity of the liver contour conc erning for cirrhosis. Calcified gallstones are seen in gallbladder lumen. No intrahepatic or extrahe patic ductal dilatation.. Spleen: Unremarkable. Pancreas: Unremarkable. Adrenal Glands: Unremarkable. tract: The kidneys are normal in size bilaterally without hydronephrosis . Stable subcentimeter N onobstructing right renal stone. Bladder is decompressed with a Stauffer catheter and cannot be adequate ly assessed. GI tract: The stomach is grossly normal in appearance. No evidence of small bowel obstruction. The la rge bowel is unremarkable. The appendix is normal. Lymphatics: No mesenteric, retroperitoneal or periportal lymphadenopathy. Vasculature: Aorta is normal in caliber. Scattered calcified plaques are noted. Pelvic Organs: Unremarkable Bones/soft tissues: No acute abnormality. Supraumbilical diastasis recti. Stable small fat containing midline epigastric wall hernia measuring 2.8 cm in transverse the neck, bowel containing supraumbili gaviota and left lower quadrant spigelian hernia measuring 7.4 cm 5 cm in transverse at the neck respecti vely. Other: None. IMPRESSION: 1. Stable interstitial and ground-glass opacities in the bilateral lower lung zones with interval dev elopment of bibasilar dependent opacities may represent pneumonia or atelectasis. 2. No acute abnormality seen in the abdomen or pelvis. No drainable fluid collection is noted.Stable 3. Abdominal wall hernias with no evidence of incarceration or strangulation. 4. Stable subcentimeter nonobstructive right renal stone without hydronephrosis or hydroureter. A Fol ey catheter is seen in the bladder.
[2024-11-12] MEDS: levoFLOXacin 500MG 100 ML IV ONE (16:07)
[2024-11-12] MEDS: SODIUM CHLORIDE 0.9% 1,000 ML IV SCH (17:11)
[2024-11-12] MEDS: IPRATROPIUM BROM 0.5 MG/2.5ML INH SOL NEB SCH (17:35)
[2024-11-12] MEDS: ALBUTEROL SULF 2.5 MG/0.5ML(0.5%) NEB SOLN NEB SCH (17:35)
[2024-11-12 18:19] LABS: Sodium 143 mmol/L (136-145)
[2024-11-12] MEDS: InsuLIN REG 1unit/0.01ml Soln (100units/ml) SC SCH (18:19)
[2024-11-12 18:20] LABS: Anion Gap 8 (5-15); Carbon Dioxide 25 mmol/L (20-31)
[2024-11-12 18:22] LABS: Calcium 7.4 mg/dL (8.7-10.4); Chloride 110 mmol/L (98-107); Potassium 2.9 mmol/L (3.5-5.1)
[2024-11-12 18:25] LABS: BUN/Creatinine Ratio 15.4 (10.0-20.0)
[2024-11-12 18:28] LABS: Blood Urea Nitrogen 8 mg/dL (9-23); Glucose 198 mg/dL (74-106)
[2024-11-12] MEDS: MIDAZOLAM DRIP 50 mg/50mL 50 ML IV SCH (20:00)
[2024-11-12] MEDS: MIDAZOLAM DRIP 50 mg/50mL 50 ML IV ONE (20:17)
[2024-11-12 21:05] LABS: Potassium 2.8 mmol/L (3.5-5.1)
[2024-11-12 21:13] LABS: Magnesium 1.4 mg/dL (1.6-2.6)
[2024-11-12] MEDS: MAGNESIUM SULFATE 1GM/100ML 200 ML IV ONE (21:27)
[2024-11-12] MEDS: POTASSIUM CHL 20MEQ/50ML 100 ML IV ONE (21:28)
[2024-11-12] MEDS: POTASSIUM CHL 20MEQ/100ML 100 ML IV ONE (21:28)
[2024-11-12] MEDS: fentaNYL Drip 2500mCg/250mlNS 250 ML IV SCH (21:30)
[2024-11-12] MEDS: fentaNYL Drip 2500mCg/250mlNS 250 ML IV ONE (21:33)
[2024-11-12] MEDS: ATORVASTATIN 20 MG TAB PO SCH (22:00)
[2024-11-12] MEDS: glyBURIDE 5 MG TAB PO SCH (22:00)
[2024-11-12] MEDS ORDERED: INSULIN LANTUS (GLARGINE) 1 /0.01ml (100units/ml) SC SCH (22:00)
[2024-11-12] MEDS: SODIUM CHLOR 0.9% PF (SALINE LOCK) 10ML VIAL/SYR IV SCH (22:00)
[2024-11-12] MEDS: MAGNESIUM OXIDE 400 MG TAB PO SCH (22:00)
[2024-11-13] VITALS (106 sets, daily range): BP systolic 91–115; BP diastolic 45–59; PULSE 101–136; RESP 13–20; TEMP 97.8–98.5; O2SAT 95–100
[2024-11-13] MEDS: NOREPINEPHRINE 8 MG/250ML KIT 250 ML IV SCH (00:55)
--- NOTE | 2024-11-13 03:12 | DVH ---
CHEST RADIOGRAPH Indication: OGT PLACEMENT VERIFICATION Technique: Single frontal view of the chest was obtained COMPARISON: XY CHEST PORTABLE on DOS: 11/12/24, XY CHEST PORTABLE on DOS: 11/12/24, XY CHEST PORTABLE o n DOS: 11/05/24 FINDINGS: Lines and Tubes: New enteric catheter courses below the level of the diaphragm and terminates beyond the inferior margin of the image. A new right peripherally inserted central catheter terminates at th e expected location of the cavoatrial junction. The endotracheal tube is unchanged. Lungs: Mild interval decrease in diffuse prominence of bilateral interstitial opacities. Pleura: No effusion. No pneumothorax. Cardiomediastinal contours: Unremarkable Bones: Unremarkable IMPRESSION: 1. Mild interval decrease in diffuse bilateral interstitial opacities. 2. New enteric catheter. 3. New right peripherally inserted central catheter. 4. Endotracheal tube unchanged.
[2024-11-13 03:55] LABS: Basophils # (auto) 0.1 10 ^3/uL (0-0.2); Basophils % (auto) 1.1 % (0.0-2.0); Eosinophils # (auto) 0.3 10 ^3/uL (0-0.8); Hematocrit 42.5 % (36.0-46.0); Hemoglobin 14.1 g/dL (12.2-16.2); Lymphocytes # (auto) 2.5 10 ^3/uL (0.4-5.4); Lymphocytes % (auto) 17.3 % (10.0-50.0); Mean Corpuscular Hemoglobin 30.2 pg (28.0-32.0); Mean Corpuscular Hgb Conc. 33.3 g/dL (32.0-36.0); Mean Corpuscular Volume 90.9 fL (80.0-100.0); Monocytes # (auto) 1.1 10 ^3/uL (0-1.3); Monocytes % (auto) 7.7 % (0.0-12.0); Neutrophils # (auto) 10.2 10 ^3/uL (1.6-8.6); Neutrophils % (auto) 71.9 % (37.0-80.0); Nucleated Red Blood Cells % 0.2 %; Platelet Count (auto) 269 10^3/uL (140-450); Red Blood Cells 4.68 10^6/uL (4.0-5.20); Red Cell Distribution Width 13.9 % (11.8-14.3); White Blood Cell 14.2 10^3/uL (4.4-10.8)
[2024-11-13 04:14] LABS: Alanine Aminotransferase 17 U/L (7-40); Alkaline Phosphatase 50 U/L (46-116); Anion Gap 8 (5-15); BUN/Creatinine Ratio 16.7 (10.0-20.0); Blood Urea Nitrogen 11 mg/dL (9-23); Carbon Dioxide 26 mmol/L (20-31); Sodium 143 mmol/L (136-145)
[2024-11-13 04:15] LABS: Aspartate Aminotransferase 17 U/L (13-40)
[2024-11-13 04:21] LABS: Albumin 2.7 g/dL (3.2-4.8); Bilirubin, Total 0.3 mg/dL (0.2-1.0); Calcium 8.4 mg/dL (8.7-10.4); Chloride 109 mmol/L (98-107); Glucose 200 mg/dL (74-106); Potassium 3.5 mmol/L (3.5-5.1); Total Protein 5.4 g/dL (5.7-8.2)
[2024-11-13] MEDS ORDERED: POTASSIUM CHL 20 Meq TABLET PO SCH (10:00)
[2024-11-13] MEDS ORDERED: INSULIN LANTUS (GLARGINE) 1 /0.01ml (100units/ml) SC SCH (10:00)
[2024-11-13] MEDS ORDERED: FUROSEMIDE 40 MG/4 ML VIAL IV SCH (10:00)
[2024-11-13] MEDS: ENOXAPARIN SOD 40 MG/0.4 ML SYRINGE SC SCH (10:38)
[2024-11-13] MEDS: PANTOPRAZOLE 40 MG/10 ML VIAL INJ IV SCH (10:38)
[2024-11-13] MEDS: ASPirin 81 mg TAB PO SCH (10:39)
[2024-11-13] MEDS: VANCOMYCIN 750MG KIT 100 ML IV SCH (12:00)
--- NOTE | 2024-11-13 13:58 | DVHPNRES ---
Progress Note Date Seen: Nov 13, 2024 Resident Creating Document: ALEXUS ABDI RESIDENT Medical Necessity Reason Pt with a Central, PICC or Fol: Yes The following are medically ne: PICC Line, Stauffer Catheter Subjective Review of Systems Patient was a 69-year-old female with past medical history as described below presented to the with a chief complaint of altered level of consciousness and fevers. According to the daughter, patient was admitted to seen with these about 2-3 weeks ago for chest pain and shortness of breath where she was treated for pneumonia and COPD and was discharged home but she was weak had fever which she was to the hospital about a week ago with a she was treated pneumoniae and ?dka with antibiotics and she was discharged to [facility]. While she was at [facility] staff noticed to have diffuse up to 102 degree F and she had altered level of consciousness following which EMS were called and patient was brought to the hospital for further evaluation. Past medical history: Hypertension, hyperlipidemia, peripheral neuropathy, insulin-dependent type 2 diabetes mellitus, COPD, obstructive sleep apnea on CPAP, GERD, history of carpal tunnel syndrome osteoporosis, ?hFpEF Past surgical history: Colostomy followed diverticulitis Social history: Patient lives has a history of smoking currently currently denies any drug, alcohol, smoking Home medications: Aspirin, anemia level mg, atorvastatin 40, Lasix 40 mg, metoprolol tartrate 50 mg b.i.d., insulin Lantus, anoro ellipta inhaler, mounjaro Review of systems Patient seen and examined with the side sliding sedated and on mechanical ventilation Patient was noted to have swelling of the right upper extremity following which right extremity venous Doppler was done which showed in the right subclavian and axillary artery. Urine output decreased she was dry to skin, but had rales in the bilateral lung nguyễn Objective vital signs Vital Sign Date Time Temp Pulse Resp B/P (MAP) Pulse Ox O2 Delivery O2 Flow Rate FiO2 11/13/24 13:45 126 16 115/53 (73) 97 11/13/24 12:30 30 11/13/24 12:00 Mechanical Ventilator+ 11/13/24 12:00 97.8 97.8 Total Intake and Output 11/12/24 11/12/24 11/13/24 15:00 23:00 07:00 Intake Total 1226.09 ml 959.67 ml 969.7 ml Output Total 900 ml 200 ml Balance 326.09 ml 959.67 ml 769.7 ml medications Current Medications Medications Dose Ordered Sig/Purvi Route Start Time Stop Time Status Last Admin Dose Admin Norepinephrine Bitartrate 250 ml @ 3.75 mls/hr Q24H IV 11/12/24 08:30 Vancomycin HCl 200 ml @ 200 mls/hr Q12HR IV 11/12/24 10:00 UNV Vancomycin HCl 0 ml @ 0 mls/hr UD IV 11/12/24 08:45 Propofol 100 ml @ 2.67 mls/hr Q24H IV 11/12/24 09:45 11/13/24 07:52 13.35 MLS/HR Enoxaparin Sodium 40 mg DAILY SC 11/13/24 10:00 11/13/24 10:38 40 MG Albuterol 2.5 mg Q6HR NEB 11/12/24 18:00 11/13/24 12:30 2.5 MG Ipratropium [place] 0.5 mg Q6HR NEB 11/12/24 18:00 11/13/24 12:30 0.5 MG Diagnostic Test (Pha) 1 strip Q6HR 11/12/24 18:00 11/13/24 11:42 1 STRIP Insulin Human Regular Q6HR SC 11/12/24 18:00 11/13/24 11:46 2 UNITS Dextrose 50 ml UD PRN IV 11/12/24 13:15 Insulin Glargine 14 units HS SC 11/12/24 22:00 Hold Aspirin 81 mg DAILY PO 11/13/24 10:00 11/13/24 10:39 81 MG Atorvastatin Calcium 40 mg HS PO 11/12/24 22:00 Pantoprazole Sodium 40 mg DAILY IV 11/13/24 10:00 11/13/24 10:38 40 MG Sodium Chloride 10 ml QSHIFT@10,22 IV 11/12/24 22:00 11/13/24 10:38 10 ML Midazolam HCl 50 ml @ 1 mls/hr Q24H IV 11/12/24 20:00 11/13/24 07:53 7 MLS/HR Fentanyl Citrate 250 ml @ 2.5 mls/hr Q24H IV 11/12/24 21:30 11/12/24 21:30 2.5 MLS/HR Cefepime HCl 50 ml @ 12.5 mls/hr Q8HR IV 11/13/24 14:00 Vancomycin HCl 100 ml @ 100 mls/hr Q12H IV 11/13/24 12:00 Enteral Nutritional Formula 1,000 ml 30ML/HR GT 11/13/24 14:00 UNV Examination Constitutional: Patient is sedated and on mechanical ventilation with a RASS -4 Gen - no pallor, no icterus, no cyanosis, no clubbing, no LAD, no edema . Skin - Patients skin is warm and dry.. HEENT - normocephalic, atraumatic, dry mucous membranes. Neck - full ROM, no LAD, no JVD. Pulmonary - B/L pleasant, diffuse rales the right lung and rales in the left lower lung, no wheezing cardiovascular - variable S1,S2 heard, no added sounds, no murmurs heard. capillary refill normal <2 secs. GI - soft, nondistended abdomen. no hepatospleenomegaly. Bowel sounds normoactive Neurological - patient was sedated and on mechanical ventilation, gag reflex present, pupils equal and reactive laboratory and microbiology Laboratory Tests 11/13/24 03:20 Test 11/13/24 03:20 Range/Units Serum Glucose 200 H 74-106 mg/dL Microbiology Date/Time Source Procedure Growth Status 11/12/24 12:23 Voided Urine Urine Culture - Preliminary Resulted 11/12/24 10:12 Sputum Gram Stain - Final Resulted 11/12/24 10:12 Sputum Respiratory Culture - Preliminary Resulted 11/12/24 08:49 Blood Blood Culture - Preliminary NO GROWTH AFTER 24 HOURS OF INCUBATION. Resulted Problem List/Assessment/Plan Problem List/Assessment/Plan Neurology Acute metabolic encephalopathy likely due to sepsis - on mechanical ventilation - RASS -4 Respiratory Acute on chronic hypoxic respiratory failure COPD MINOO on cpap ? Pneumonia due to gram +/-bacteria Bilateral pulmonary edema - ABG compensated - chest x-ray shows bilateral interstitial opacities - ventilator at minimal settings with a FiO2 30%, peep of 5 - DuoNebs q.6 hours - IV antibiotics vancomycin and cefepime - sputum cultures pending Cardiovascular Acute on chronic heart failure with preserved ejection fraction Right upper arm DVT - ECHO 10/2024 shows hyperdynamic systolic function. LVEF was around 76% - BNP normal - as the patient has had low blood pressures currently no diuretics - right upper arm venous Doppler showed no flow in axillary and the subclavian vein - enoxaparin therapeutic dose Infectious disease Sepsis likely due to pneumonia - blood cultures pending after 24 hours showed no growth - urine cultures preliminary show no growth - sputum cultures still ruling out pathogen - IV antibiotics with the vancomycin and cefepime Endocrinology Insulin-dependent type 2 diabetes mellitus with peripheral neuropathy Morbid obesity - recent Hba1C 7.8% - on insulin sliding scale GI History of diverticulitis status post left lower quadrant colostomy Cholelithiasis Mild hepatomegaly and hepatic steatosis (seen on CT) Diet: tube feeding DVT prophylaxis: Enoxaparin PUD prophylaxis: Protonix Right upper arm PICC line inserted on 11/12 Stauffer's catheter Goals of care discussed with the patient's daughter for over 27 minutes. Full code Critical care time spent excluding procedures: 81 minutes Plan discussed with Plan discussed with: Daughter (Kathy), Other (RN (Tania)) My Orders My Orders Orders - ALEXUS ABDI RESIDENT Procedure Category Date Status Time Cefepime 1gm/ 50ml PHA 11/13/24 In Process (Maxipime 1gm/50ml) 14:00 B-Type Natriuretic LAB 11/13/24 In Process Peptide 13:22 Nutritional PHA 11/13/24 Logged Supplements (Glucerna 14:00 Date of Service: Nov 13, 2024 Billing Provider: KOBY MCCORMICK MD Common Visit Codes: 24113-[id number] CARE 30-74 MIN, 46193-[id number] CARE-EACH +30MIN ALEXUS ABDI RESIDENT Nov 13, 2024 13:58 KOBY MCCORMICK MD Nov 14, 2024 14:03
[2024-11-13] MEDS: CEFEPIME 1GM/ 50ML 50 ML IV SCH (14:00)
--- NOTE | 2024-11-13 16:34 | DVH ---
Upper Extremity Venous Duplex Clinical History: SWELLING IN LEFT ARM Comparison: None Technique: Duplex Doppler evaluation of the venous system of the LEFT lower neck and upper extremity including c olor Doppler and spectral/pulsed waveform analysis was performed. Findings: The internal jugular vein demonstrates appropriate compressibility and waveform variability . The subclavian vein is patent on color Doppler evaluation without intraluminal thrombus and demonstra [place] waveform variability . The visualized portion of the brachiocephalic vein is patent on color Doppler evaluation without intr aluminal thrombus and demonstrates waveform variability . The axillary vein demonstrates appropriate compressibility and waveform variability . The brachial veins demonstrate appropriate compressibility and patency on Doppler evaluation. The basilic vein demonstrates appropriate compressibility and patency on Doppler evaluation. The cephalic vein demonstrates appropriate compressibility and patency on Doppler evaluation. Impression: 1. No venous thrombus identified in the LEFT upper extremity vessels evaluated above. 2. If clinical concern/symptoms persist or worsen, short-interval follow-up study is suggested.
--- NOTE | 2024-11-13 16:37 | DVH ---
Right Upper Extremity Venous Duplex Clinical History: SWELLING IN EXTREMITY Comparison: None Technique: Duplex Doppler evaluation of the venous system of the RIGHT lower neck and upper extremity including color Doppler and spectral/pulsed waveform analysis was performed. Findings: The internal jugular vein demonstrates appropriate compressibility and waveform variability. The subclavian vein no flow no compressibility The visualized portion of the brachiocephalic vein is patent on color Doppler evaluation without intr aluminal thrombus and demonstrates waveform variability. The axillary vein demonstrates no flow no compressibility The brachial veins demonstrate appropriate compressibility and patency on Doppler evaluation. The basilic vein demonstrates flow no compressibility The cephalic vein demonstrates appropriate compressibility and patency on Doppler evaluation. Impression: 1. Positive venous thrombus identified in the RIGHT upper extremity vessels evaluated above. 2. Thrombus noted in the right upper extremity basilic vein. This was confirmed by Tania VACA. 3. If clinical concern/symptoms persist or worsen, short-interval follow-up study is suggested.
[2024-11-13] MEDS: LEVALBUTEROL HCL 1.25 MG/3 ML NEB NEB SCH (17:50)
--- NOTE | 2024-11-13 19:17 | DVH ---
EXAM: US US GUIDED VASCULAR ACCESS INDICATION: PICC line Insertion TECHNIQUE: Grayscale and color Doppler sonographic imaging evaluation of the region of concern. COMPARISON: None FINDINGS: Successful ultrasound-guided guidance for PICC line placement and sizing. IMPRESSION: 1. Successful ultrasound-guided guidance for PICC line placement and sizing.
[2024-11-13] MEDS: ENOXAPARIN SOD 100 MG/1 ML SYRINGE SC SCH (21:45)
[2024-11-14] VITALS (106 sets, daily range): BP systolic 53–132; BP diastolic 45–65; PULSE 114–131; RESP 14–19; TEMP 98.5–99.5; O2SAT 94–100
[2024-11-14] MEDS: VANCOMYCIN 750MG KIT 100 ML IV SCH (02:00)
[2024-11-14 03:51] LABS: Basophils # (auto) 0.1 10 ^3/uL (0-0.2); Basophils % (auto) 0.9 % (0.0-2.0); Eosinophils # (auto) 0.4 10 ^3/uL (0-0.8); Eosinophils % (auto) 3.3 % (0.0-7.0); Hemoglobin 13.3 g/dL (12.2-16.2); Lymphocytes # (auto) 2.5 10 ^3/uL (0.4-5.4); Lymphocytes % (auto) 21.4 % (10.0-50.0); Mean Corpuscular Hemoglobin 30.5 pg (28.0-32.0); Mean Corpuscular Hgb Conc. 33.1 g/dL (32.0-36.0); Mean Corpuscular Volume 92.1 fL (80.0-100.0); Monocytes # (auto) 0.7 10 ^3/uL (0-1.3); Monocytes % (auto) 5.8 % (0.0-12.0); Neutrophils # (auto) 8.1 10 ^3/uL (1.6-8.6); Neutrophils % (auto) 68.6 % (37.0-80.0); Nucleated Red Blood Cells % 0.1 %; Platelet Count (auto) 215 10^3/uL (140-450); Red Blood Cells 4.35 10^6/uL (4.0-5.20); White Blood Cell 11.8 10^3/uL (4.4-10.8)
[2024-11-14 03:54] LABS: Potassium 3.7 mmol/L (3.5-5.1); Sodium 143 mmol/L (136-145)
[2024-11-14 03:55] LABS: Anion Gap 9 (5-15); Carbon Dioxide 23 mmol/L (20-31)
[2024-11-14 04:00] LABS: BUN/Creatinine Ratio 24.1 (10.0-20.0); Blood Urea Nitrogen 14 mg/dL (9-23)
[2024-11-14 04:12] LABS: Calcium 8.6 mg/dL (8.7-10.4); Chloride 111 mmol/L (98-107); Glucose 225 mg/dL (74-106)
--- NOTE | 2024-11-14 05:01 | DVH ---
CHEST RADIOGRAPH Indication: B/L rales , on vent Technique: Single frontal view of the chest was obtained Comparison: XY CHEST PORTABLE on DOS: 11/13/24 FINDINGS: Lines and Tubes: The endotracheal tube terminates 1.8 cm above the kerry. The enteric tube courses b elow the left hemidiaphragm and the tip extends outside the field of view. Right PICC terminates in t he superior cavoatrial junction. Lungs: No focal consolidation. Pleura: Pulmonary venous congestion. No effusion. No pneumothorax. Cardiomediastinal contours: Cardiomegaly. Bones: No acute osseous abnormality. ACDF. IMPRESSION: 1. Pulmonary vascular congestion.
[2024-11-14 07:25] LABS: Base Excess -1.9 mmol/L (-2.0-3.0)
--- NOTE | 2024-11-14 09:31 | DVHPNRES ---
Progress Note Date Seen: Nov 14, 2024 Resident Creating Document: ALEXUS ABDI RESIDENT Medical Necessity Reason Pt with a Central, PICC or Fol: Yes The following are medically ne: PICC Line, Stauffer Catheter Subjective Review of Systems Patient was a 69-year-old female with past medical history as described below presented to the with a chief complaint of altered level of consciousness and fevers. According to the daughter, patient was admitted to seen with these about 2-3 weeks ago for chest pain and shortness of breath where she was treated for pneumonia and COPD and was discharged home but she was weak had fever which she was to the hospital about a week ago with a she was treated pneumoniae and ?dka with antibiotics and she was discharged to [facility]. While she was at the [facility] staff noticed to have diffuse up to 102 degree F and she had altered level of consciousness following which EMS were called and patient was brought to the hospital for further evaluation. Past medical history: Hypertension, hyperlipidemia, peripheral neuropathy, insulin-dependent type 2 diabetes mellitus, COPD, obstructive sleep apnea on CPAP, GERD, history of carpal tunnel syndrome osteoporosis, ?hFpEF Past surgical history: Colostomy followed diverticulitis Social history: Patient lives has a history of smoking currently currently denies any drug, alcohol, smoking Home medications: Aspirin, anemia level mg, atorvastatin 40, Lasix 40 mg, metoprolol tartrate 50 mg b.i.d., insulin Lantus, anoro ellipta inhaler, mounjaro Review of systems Patient seen and examined at bedside, sedated and on mechanical ventilation Right upper arm DVT, on anticoagulation Urine output low, given one dose of lasix continues to be tachycardiac in 110-120, sinus tach Objective vital signs Vital Sign Date Time Temp Pulse Resp B/P (MAP) Pulse Ox O2 Delivery O2 Flow Rate FiO2 11/14/24 09:15 122 16 115/52 (73) 98 11/14/24 08:00 Mechanical Ventilator+ 30 30 11/14/24 04:00 98.5 98.5 Total Intake and Output 11/13/24 11/13/24 11/14/24 15:00 23:00 07:00 Intake Total 482.63 ml 252.57 ml 332.08 ml Output Total 940 ml 220 ml Balance 482.63 ml -687.43 ml 112.08 ml medications Current Medications Medications Dose Ordered Sig/Purvi Route Start Time Stop Time Status Last Admin Dose Admin Norepinephrine Bitartrate 250 ml @ 3.75 mls/hr Q24H IV 11/12/24 08:30 Vancomycin HCl 200 ml @ 200 mls/hr Q12HR IV 11/12/24 10:00 UNV Vancomycin HCl 0 ml @ 0 mls/hr UD IV 11/12/24 08:45 Propofol 100 ml @ 2.67 mls/hr Q24H IV 11/12/24 09:45 11/14/24 03:23 8.01 MLS/HR Ipratropium [place] 0.5 mg Q6HR NEB 11/12/24 18:00 11/14/24 05:47 0.5 MG Diagnostic Test (Pha) 1 strip Q6HR 11/12/24 18:00 11/14/24 06:00 1 STRIP Insulin Human Regular Q6HR SC 11/12/24 18:00 11/14/24 06:31 4 UNITS Dextrose 50 ml UD PRN IV 11/12/24 13:15 Insulin Glargine 14 units HS SC 11/12/24 22:00 Hold Aspirin 81 mg DAILY PO 11/13/24 10:00 11/13/24 10:39 81 MG Pantoprazole Sodium 40 mg DAILY IV 11/13/24 10:00 11/13/24 10:38 40 MG Sodium Chloride 10 ml QSHIFT@10,22 IV 11/12/24 22:00 11/13/24 21:45 10 ML Midazolam HCl 50 ml @ 1 mls/hr Q24H IV 11/12/24 20:00 11/14/24 00:32 6 MLS/HR Fentanyl Citrate 250 ml @ 2.5 mls/hr Q24H IV 11/12/24 21:30 11/13/24 21:55 12.5 MLS/HR Cefepime HCl 50 ml @ 12.5 mls/hr Q8HR IV 11/13/24 14:00 11/14/24 06:30 12.5 MLS/HR Enteral Nutritional Formula 1,000 ml 30ML/HR GT 11/13/24 14:00 Levalbuterol HCl 0.625 mg Q6HR NEB 11/13/24 18:00 11/14/24 05:47 0.625 MG Enoxaparin Sodium 100 mg Q12HR SC 11/13/24 22:00 11/13/24 21:45 100 MG Vancomycin HCl 100 ml @ 100 mls/hr Q12H IV 11/14/24 02:00 11/14/24 02:00 100 MLS/HR Examination Constitutional: Patient is sedated and on mechanical ventilation with a RASS -4 Gen - no pallor, no icterus, no cyanosis, no clubbing, no LAD, no edema . Skin - Patients skin is warm and dry.. HEENT - normocephalic, atraumatic, dry mucous membranes. Neck - full ROM, no LAD, no JVD. Pulmonary - diffuse rales more in the right lung and rales in the left lower lung, no wheezing cardiovascular - variable S1,S2 heard, no added sounds, no murmurs heard. capillary refill normal <2 secs. GI - soft, nondistended abdomen. no hepatospleenomegaly. Bowel sounds normoactive Neurological - patient was sedated and on mechanical ventilation, gag reflex present, pupils equal and reactive laboratory and microbiology Laboratory Tests 11/14/24 03:05 Test 11/14/24 03:05 Range/Units Serum Glucose 225 H 74-106 mg/dL Microbiology Date/Time Source Procedure Growth Status 11/12/24 18:52 Nose MRSA Screen - Final Complete 11/12/24 12:23 Voided Urine Urine Culture - Preliminary Resulted 11/12/24 10:12 Sputum Gram Stain - Final Resulted 11/12/24 10:12 Sputum Respiratory Culture - Preliminary Resulted 11/12/24 08:49 Blood Blood Culture - Preliminary NO GROWTH AFTER 48 HOURS OF INCUBATION. Resulted Problem List/Assessment/Plan Problem List/Assessment/Plan Neurology Acute metabolic encephalopathy likely due to sepsis - on mechanical ventilation - RASS -4 Respiratory Acute on chronic hypoxic respiratory failure COPD MINOO on cpap ? Pneumonia due to gram +/-bacteria Bilateral pulmonary edema - ABG compensated - chest x-ray shows bilateral interstitial opacities - ventilator at minimal settings with a FiO2 30%, peep of 5 - DuoNebs q.6 hours - IV antibiotics vancomycin and cefepime - sputum cultures pending Cardiovascular Acute on chronic heart failure with preserved ejection fraction Right upper arm DVT - ECHO 10/2024 shows hyperdynamic systolic function. LVEF was around 76% - BNP normal - as the patient has had low blood pressures currently no diuretics - right upper arm venous Doppler showed no flow in axillary and the subclavian vein - enoxaparin therapeutic dose Infectious disease Sepsis likely due to pneumonia - blood cultures pending after 48 hours showed no growth - urine cultures show no growth - sputum cultures still ruling out pathogen - IV antibiotics with the vancomycin and cefepime Endocrinology Insulin-dependent type 2 diabetes mellitus with peripheral neuropathy Morbid obesity - recent Hba1C 7.8% - on insulin sliding scale GI History of diverticulitis status post left lower quadrant colostomy Cholelithiasis Mild hepatomegaly and hepatic steatosis (seen on CT) Diet: tube feeding DVT prophylaxis: Enoxaparin PUD prophylaxis: Protonix left upper arm PICC line inserted on 11/14 Stauffer's catheter Goals of care discussed with the patient's daughter for over 27 minutes. Full code Critical care time spent excluding procedures: 61 minutes Plan discussed with Plan discussed with: Daughter, Other (RN ( Tania )) My Orders My Orders Orders - ALEXUS ABDI Procedure Category Date Status Time Cefepime 1gm/ 50ml PHA 11/13/24 In Process (Maxipime 1gm/50ml) 14:00 Nutritional PHA 11/13/24 In Process Supplements (Glucerna 14:00 Rt Upper Dvt US 11/13/24 Resulted 15:27 Lt Upper Dvt US 11/13/24 Resulted 16:02 Enoxaparin Sodium PHA 11/13/24 In Process (Lovenox) 22:00 Chest Xray 1 View XY 11/14/24 Resulted 04:00 Abg W/ Co-Ox RT 11/14/24 Logged 04:00 Free T4 (Free LAB 11/14/24 Logged Thyroxine) 09:20 T3 Total LAB 11/14/24 Logged 09:20 Date of Service: Nov 14, 2024 Billing Provider: KOBY MCCORMICK MD Common Visit Codes: [id number] CARE 30-74 MIN ALEXUS ABDI Nov 14, 2024 09:31 KOBY MCCORMICK MD Nov 15, 2024 15:22
[2024-11-14 10:32] LABS: Free T4 (Free Thyroxine) 1.07 ng/dL (0.89-1.76); T3 Total 0.43 ng/mL (0.60-1.81)
[2024-11-14] MEDS: FUROSEMIDE 20 MG/2 ML VIAL IV ONE (13:35)
[2024-11-14] MEDS: LIDOCAINE 1% (LOCAL ANESTH.) PF 5ml SDV ID ONE (17:29)
[2024-11-14] MEDS ORDERED: DEXTROSE (50%) 50ML SYRG IV PRN (18:00)
[2024-11-14] MEDS: ACCU-CHEK COMFORT CURVE STRIP VI SCH (18:00)
[2024-11-14] MEDS: InsuLIN REG 1unit/0.01ml Soln (100units/ml) SC SCH (18:36)
[2024-11-14] MEDS: POTASSIUM CHL 20MEQ/50ML 50 ML IV ONE (18:44)
[2024-11-14] MEDS: SODIUM CHLOR 0.9% PF (SALINE LOCK) 10ML VIAL/SYR IV SCH (21:38)
[2024-11-14] MEDS: PROPOFOL 100 ML IV SCH (23:30)
[2024-11-15] VITALS (106 sets, daily range): BP systolic 104–134; BP diastolic 44–64; PULSE 101–125; RESP 13–27; TEMP 97.8–100.3; O2SAT 95–100
--- NOTE | 2024-11-15 03:31 | DVH ---
CHEST RADIOGRAPH Indication: on vent Technique: Single frontal view of the chest was obtained Comparison: XY CHEST XRAY 1 VIEW on DOS: 11/14/24, XY CHEST PORTABLE on DOS: 11/13/24, XY CHEST PORTABL E on DOS: 11/12/24 IMPRESSION: Endotracheal tube tip approximately 1 cm from the kerry, stable. Enteric tube tip in the region of the stomach. Left PICC line tip in the region of the superior vena cava. The heart remains prominent size. Moderate pulmonary vascular congestion has increased. Possible smal l left pleural effusion. No pneumothorax.
[2024-11-15 03:55] LABS: Basophils # (auto) 0.1 10 ^3/uL (0-0.2); Basophils % (auto) 0.6 % (0.0-2.0); Eosinophils # (auto) 0.3 10 ^3/uL (0-0.8); Eosinophils % (auto) 3.7 % (0.0-7.0); Hematocrit 35.7 % (36.0-46.0); Hemoglobin 12.1 g/dL (12.2-16.2); Lymphocytes # (auto) 2.2 10 ^3/uL (0.4-5.4); Lymphocytes % (auto) 23.2 % (10.0-50.0); Mean Corpuscular Hgb Conc. 33.8 g/dL (32.0-36.0); Mean Corpuscular Volume 91.7 fL (80.0-100.0); Monocytes # (auto) 0.6 10 ^3/uL (0-1.3); Monocytes % (auto) 6.7 % (0.0-12.0); Neutrophils # (auto) 6.1 10 ^3/uL (1.6-8.6); Neutrophils % (auto) 65.8 % (37.0-80.0); Platelet Count (auto) 194 10^3/uL (140-450); Red Blood Cells 3.89 10^6/uL (4.0-5.20); Red Cell Distribution Width 14.2 % (11.8-14.3); White Blood Cell 9.3 10^3/uL (4.4-10.8)
[2024-11-15 03:59] LABS: Sodium 143 mmol/L (136-145)
[2024-11-15 04:00] LABS: Anion Gap 4 (5-15); Carbon Dioxide 27 mmol/L (20-31)
[2024-11-15 04:05] LABS: BUN/Creatinine Ratio 20.3 (10.0-20.0); Blood Urea Nitrogen 12 mg/dL (9-23); Calcium 8.6 mg/dL (8.7-10.4); Chloride 112 mmol/L (98-107); Glucose 236 mg/dL (74-106); Potassium 3.3 mmol/L (3.5-5.1)
[2024-11-15 04:06] LABS: Magnesium 1.7 mg/dL (1.6-2.6)
[2024-11-15] MEDS: VANCOMYCIN 1.25GM/250ML 250 ML IV SCH (04:11)
[2024-11-15] MEDS: POTASSIUM CHL 20MEQ/50ML 50 ML IV SCH (06:35)
--- NOTE | 2024-11-15 07:22 | DVH ---
EXAM: XR Chest, 1 View CLINICAL INDICATION: RETRACTION OF ETT FROM 24CM TO 22CM PER AM CXR TECHNIQUE: Frontal view of the chest. COMPARISON: XY CHEST XRAY 1 VIEW on DOS: 11/15/24, XY CHEST XRAY 1 VIEW on DOS: 11/14/24, XY CHEST PO RTABLE on DOS: 11/13/24, XY CHEST PORTABLE on DOS: 11/12/24, XY CHEST PORTABLE on DOS: 11/12/24 FINDINGS: LUNGS AND PLEURAL SPACES: Pulmonary congestion and edema. Pneumonia cannot be excluded. No pneumot horax. HEART: Unremarkable. No cardiomegaly. MEDIASTINUM: Unremarkable. Normal mediastinal contour. BONES/JOINTS: Unremarkable. No acute fracture. TUBES, LINES AND DEVICES: The endotracheal tube (ETT) is in satisfactory position. Left internal j ugular central venous catheter tip in the superior vena cava. OTHER FINDINGS: . . IMPRESSION: Pulmonary congestion and edema. Pneumonia cannot be excluded.
[2024-11-15 07:58] LABS: Base Excess -1.7 mmol/L (-2.0-3.0)
[2024-11-15] MEDS: MAGNESIUM SULFATE 1GM/100ML 100 ML IV SCH (09:17)
[2024-11-15] MEDS: FUROSEMIDE 40 MG/4 ML VIAL IV ONE (10:38)
--- NOTE | 2024-11-15 18:34 | DVHPNRES ---
Progress Note Date Seen: Nov 15, 2024 Resident Creating Document: ALEXUS ABDI RESIDENT Medical Necessity Reason Pt with a Central, PICC or Fol: Yes The following are medically ne: PICC Line, Stauffer Catheter Subjective Review of Systems Patient was a 69-year-old female with past medical history as described below presented to the with a chief complaint of altered level of consciousness and fevers. According to the daughter, patient was admitted to seen with these about 2-3 weeks ago for chest pain and shortness of breath where she was treated for pneumonia and COPD and was discharged home but she was weak had fever which she was to the hospital about a week ago with a she was treated pneumoniae and ?dka with antibiotics and she was discharged to [facility]. While she was at the [facility] staff noticed to have diffuse up to 102 degree F and she had altered level of consciousness following which EMS were called and patient was brought to the hospital for further evaluation. Past medical history: Hypertension, hyperlipidemia, peripheral neuropathy, insulin-dependent type 2 diabetes mellitus, COPD, obstructive sleep apnea on CPAP, GERD, history of carpal tunnel syndrome osteoporosis, ?hFpEF Past surgical history: Colostomy followed diverticulitis Social history: Patient lives has a history of smoking currently currently denies any drug, alcohol, smoking Home medications: Aspirin, anemia level mg, atorvastatin 40, Lasix 40 mg, metoprolol tartrate 50 mg b.i.d., insulin Lantus, anoro ellipta inhaler, mounjaro Review of systems Patient seen and examined at bedside, sedated and on mechanical ventilation Right upper arm DVT, on anticoagulation Urine output improved after lasix tachycardia but the heart rate is in 100s Objective vital signs Vital Sign Date Time Temp Pulse Resp B/P (MAP) Pulse Ox O2 Delivery O2 Flow Rate FiO2 11/15/24 17:30 106 14 116/50 (72) 97 11/15/24 16:10 30 11/15/24 16:00 Mechanical Ventilator+ 11/15/24 16:00 98.9 98.9 Total Intake and Output 11/14/24 11/14/24 11/15/24 15:00 23:00 07:00 Intake Total 237.58 ml 499.44 ml 970.916 ml Output Total 860 ml 410 ml Balance 237.58 ml -360.56 ml 560.916 ml medications Current Medications Medications Dose Ordered Sig/Purvi Route Start Time Stop Time Status Last Admin Dose Admin Norepinephrine Bitartrate 250 ml @ 3.75 mls/hr Q24H IV 11/12/24 08:30 Vancomycin HCl 200 ml @ 200 mls/hr Q12HR IV 11/12/24 10:00 UNV Vancomycin HCl 0 ml @ 0 mls/hr UD IV 11/12/24 08:45 Ipratropium [place] 0.5 mg Q6HR NEB 11/12/24 18:00 11/15/24 18:16 0.5 MG Aspirin 81 mg DAILY PO 11/13/24 10:00 11/15/24 09:16 81 MG Pantoprazole Sodium 40 mg DAILY IV 11/13/24 10:00 11/15/24 09:16 40 MG Midazolam HCl 50 ml @ 1 mls/hr Q24H IV 11/12/24 20:00 11/15/24 13:53 8 MLS/HR Fentanyl Citrate 250 ml @ 2.5 mls/hr Q24H IV 11/12/24 21:30 11/15/24 17:30 20 MLS/HR Cefepime HCl 50 ml @ 12.5 mls/hr Q8HR IV 11/13/24 14:00 11/15/24 14:23 12.5 MLS/HR Enteral Nutritional Formula 1,000 ml 30ML/HR GT 11/13/24 14:00 Levalbuterol HCl 0.625 mg Q6HR NEB 11/13/24 18:00 11/15/24 18:16 0.625 MG Enoxaparin Sodium 100 mg Q12HR SC 11/13/24 22:00 11/15/24 09:17 100 MG Vancomycin HCl 250 ml @ 200 mls/hr Q16H IV 11/15/24 04:00 11/15/24 04:11 200 MLS/HR Diagnostic Test (Pha) 1 strip Q6HR 11/14/24 18:00 11/15/24 12:00 1 STRIP Insulin Human Regular Q6HR SC 11/14/24 18:00 11/15/24 12:52 6 UNITS Dextrose 50 ml UD PRN IV 11/14/24 18:00 Sodium Chloride 10 ml QSHIFT@10,22 IV 11/14/24 22:00 11/15/24 09:17 10 ML Propofol 100 ml @ 2.844 mls/ hr Q24H IV 11/14/24 23:30 11/15/24 13:50 5.688 MLS/HR Metoclopramide HCl 5 mg Q8HR IV 11/15/24 22:00 Nystatin 1 applic BID TOP 11/15/24 22:00 Acetaminophen 650 mg Q6HP PRN GT 11/15/24 17:15 Insulin Glargine 12 units HS SC 11/15/24 22:00 Examination Constitutional: Patient is sedated and on mechanical ventilation with a RASS -4 Gen - no pallor, no icterus, no cyanosis, no clubbing, no LAD, no edema . Skin - Patients skin is warm and dry.. HEENT - normocephalic, atraumatic, dry mucous membranes. Neck - full ROM, no LAD, no JVD. Pulmonary - diffuse rales more in the right lung and rales in the left lower lung, no wheezing cardiovascular - variable S1,S2 heard, no added sounds, no murmurs heard. capillary refill normal <2 secs. GI - soft, nondistended abdomen. no hepatospleenomegaly. Bowel sounds normoactive. stool in the colostomy bag is minimal Neurological - patient was sedated and on mechanical ventilation, gag reflex diminished, pupils equal and reactive sluggish laboratory and microbiology Laboratory Tests 11/15/24 03:14 Test 11/15/24 03:14 Range/Units Serum Glucose 236 H 74-106 mg/dL Microbiology Date/Time Source Procedure Growth Status 11/12/24 18:52 Nose MRSA Screen - Final Complete 11/12/24 12:23 Voided Urine Urine Culture - Final Complete 11/12/24 10:12 Sputum Gram Stain - Final Complete 11/12/24 10:12 Respiratory Culture - Final Methicillin Resistant S.aureus Complete 11/12/24 08:49 Blood Blood Culture - Preliminary NO GROWTH AFTER 72 HOURS OF INCUBATION. Resulted Problem List/Assessment/Plan Problem List/Assessment/Plan Neurology Acute metabolic encephalopathy likely due to sepsis - on mechanical ventilation - RASS -4 Respiratory Acute on chronic hypoxic respiratory failure COPD, MINOO on cpap ? Pneumonia due to gram +/-bacteria Bilateral pulmonary edema - ABG compensated - chest x-ray shows bilateral interstitial opacities - ventilator at minimal settings with a FiO2 30%, peep of 5 - DuoNebs q.6 hours - IV antibiotics vancomycin and cefepime - sputum cultures growing MRSA Cardiovascular Acute on chronic heart failure with preserved ejection fraction Right upper arm DVT - ECHO 10/2024 shows hyperdynamic systolic function. LVEF was around 76% - BNP normal - right upper arm venous Doppler showed no flow in axillary and the subclavian vein - enoxaparin therapeutic dose - on diuresis Infectious disease Sepsis likely due to MRSA pneumonia with acute organ dysfunction without septic shock - blood cultures pending after 72 hours showed no growth - urine cultures show no growth - sputum cultures growing MRSA - IV antibiotics with the vancomycin and cefepime Endocrinology Insulin-dependent type 2 diabetes mellitus with peripheral neuropathy Morbid obesity - recent Hba1C 7.8% - on insulin sliding scale - lantus 12 units HS GI History of diverticulitis status post left lower quadrant colostomy Cholelithiasis Mild hepatomegaly and hepatic steatosis (seen on CT) - added reglan for low output in the colostomy Diet: tube feeding DVT prophylaxis: Enoxaparin PUD prophylaxis: Protonix left upper arm PICC line inserted on 11/14 Stauffer's catheter Goals of care discussed with the patient's daughters for over 27 minutes. Full code Critical care time spent excluding procedures: 62 minutes Plan discussed with Plan discussed with: Daughter, Other (RN ( Sonam )) My Orders My Orders Orders - ALEXUS ABDI RESIDENT Procedure Category Date Status Time Potassium LAB 11/15/24 Logged 17:19 Magnesium LAB 11/15/24 Logged 17:19 Phosphorus LAB 11/15/24 Logged 17:19 Dietary Evaluation Review Comments: 1. Suggest formula Osmolite 1.2 @ 50 ml/hr (GOAL). Begin at 10 ml/hr, advance by 10 ml Q4 hrs or as tolerated to goal-rate of 50 ml/hr x 24 hrs 2. If BG becomes uncontrolled, may change to Glucerna 1.2 at same goal-rate 3. Provide free water flushes of 30 ml Q6 hrs (120 ml total); adjust PRN 4. Monitor BMP/lytes and replete to WNL/PRN TF Provision: TF at goal to provide 1200 ml total volume, 1440 kcal (+211 kcal via propofol = 1651 kcal), 66 gm pro, 189 gm CHO, 0 gm fiber, 984 ml H20 (meets 100% est. kcal needs, 100% est. pro needs) Expected Outcomes/Goals: Adequate enteral infusion, weight maintenance. Date of Service: Nov 15, 2024 Billing Provider: KOBY MCCORMICK MD Common Visit Codes: [id number] CARE 30-74 MIN ALEXUS ABDI RESIDENT Nov 15, 2024 18:34 KOBY MCCORMICK MD November 16, 2024 11:18
[2024-11-15 18:51] LABS: Magnesium 1.6 mg/dL (1.6-2.6)
[2024-11-15 18:52] LABS: Phosphorus 3.2 mg/dL (2.4-5.1)
[2024-11-15 18:56] LABS: Potassium 3.3 mmol/L (3.5-5.1)
[2024-11-15] MEDS: NYSTATIN TOPICAL POWDER 15GM TOP SCH (21:55)
[2024-11-15] MEDS: METOCLOPRAMIDE HCL 5MG/ml INJ 2ml VIAL IV SCH (21:55)
[2024-11-15] MEDS: INSULIN LANTUS (GLARGINE) 1 /0.01ml (100units/ml) SC SCH (21:59)
[2024-11-16] VITALS (109 sets, daily range): BP systolic 95–164; BP diastolic 36–73; PULSE 79–124; RESP 13–35; TEMP 98–100.5; O2SAT 92–100
[2024-11-16] MEDS: ACETAMINOPHEN 650 mg PER 20.3 mL UD GT PRN (00:28)
[2024-11-16 04:23] LABS: Basophils # (auto) 0.1 10 ^3/uL (0-0.2); Basophils % (auto) 0.7 % (0.0-2.0); Eosinophils # (auto) 0.3 10 ^3/uL (0-0.8); Eosinophils % (auto) 4.4 % (0.0-7.0); Hematocrit 34.1 % (36.0-46.0); Hemoglobin 11.5 g/dL (12.2-16.2); Lymphocytes # (auto) 1.7 10 ^3/uL (0.4-5.4); Lymphocytes % (auto) 20.9 % (10.0-50.0); Mean Corpuscular Hemoglobin 30.8 pg (28.0-32.0); Mean Corpuscular Hgb Conc. 33.8 g/dL (32.0-36.0); Mean Corpuscular Volume 91.2 fL (80.0-100.0); Monocytes # (auto) 0.6 10 ^3/uL (0-1.3); Monocytes % (auto) 7.1 % (0.0-12.0); Neutrophils # (auto) 5.3 10 ^3/uL (1.6-8.6); Neutrophils % (auto) 66.9 % (37.0-80.0); Nucleated Red Blood Cells % 0.1 %; Platelet Count (auto) 179 10^3/uL (140-450); Red Blood Cells 3.74 10^6/uL (4.0-5.20); Red Cell Distribution Width 13.8 % (11.8-14.3)
[2024-11-16 04:26] LABS: Sodium 144 mmol/L (136-145)
[2024-11-16 04:27] LABS: Anion Gap 3 (5-15)
[2024-11-16 04:32] LABS: BUN/Creatinine Ratio 20.8 (10.0-20.0); Blood Urea Nitrogen 11 mg/dL (9-23)
[2024-11-16 04:33] LABS: Magnesium 1.8 mg/dL (1.6-2.6)
[2024-11-16 04:49] LABS: Calcium 8.7 mg/dL (8.7-10.4); Carbon Dioxide 31 mmol/L (20-31); Chloride 110 mmol/L (98-107); Glucose 193 mg/dL (74-106); Potassium 3.4 mmol/L (3.5-5.1)
--- NOTE | 2024-11-16 05:47 | DVH ---
EXAM: XR Chest, 1 View CLINICAL INDICATION: on vent., B/L rales TECHNIQUE: Frontal view of the chest. COMPARISON: XY CHEST PORTABLE on DOS: 11/15/24, XY CHEST XRAY 1 VIEW on DOS: 11/15/24, XY CHEST XRAY 1 VIEW on DOS: 11/14/24, XY CHEST PORTABLE on DOS: 11/13/24, XY CHEST PORTABLE on DOS: 11/12/24 FINDINGS: LUNGS AND PLEURAL SPACES: See below. HEART: Cardiomegaly with pulmonary congestion and edema. Superimposed pneumonia cannot be excluded. MEDIASTINUM: Unremarkable. Normal mediastinal contour. BONES/JOINTS: Unremarkable. No acute fracture. TUBES, LINES AND DEVICES: The endotracheal tube (ETT) is in satisfactory position. Left internal j ugular central venous catheter tip in the superior vena cava. Enteric tube tip in the stomach. OTHER FINDINGS: . . . IMPRESSION: Cardiomegaly with pulmonary congestion and edema. Superimposed pneumonia cannot be excluded.
--- NOTE | 2024-11-16 06:03 | DVH ---
Exam: US US GUIDED VASCULAR ACCESS Date: 11/14/2024 11:12 AM Clinical History: PICC Insertion * Comparison: US US GUIDED VASCULAR ACCESS on DOS: 11/12/24 Findings: Targeted sonographic evaluation of the left basilic vein was obtained utilizing grayscale and color Doppler imaging. IMPRESSION: Sonographic assistance for central line placement. Please refer to procedural report for detailed fin dings.
[2024-11-16] MEDS: POTASSIUM CHL 20MEQ/50ML 50 ML IV SCH (06:05)
[2024-11-16 07:00] LABS: Base Excess 2.1 mmol/L (-2.0-3.0)
[2024-11-16] MEDS: FUROSEMIDE 40 MG/4 ML VIAL IV ONE (11:08)
[2024-11-16] MEDS: MAGNESIUM SULFATE 1GM/100ML 100 ML IV ONE (11:11)
[2024-11-16] MEDS: Glucerna 1.2 Cal 1Liter BOTTLE GT SCH (15:54)
[2024-11-16] MEDS: methylPREDNISolone SOD SUCC 40 MG/ML VL IV ONE (16:03)
[2024-11-16] MEDS: FREE WATER GT SCH (18:00)
--- NOTE | 2024-11-16 20:10 | DVHPNRES ---
Progress Note Date Seen: November 16, 2024 Resident Creating Document: ALEXUS ABDI RESIDENT Medical Necessity Reason Pt with a Central, PICC or Fol: Yes The following are medically ne: PICC Line, Stauffer Catheter Subjective Review of Systems Patient was a 69-year-old female with past medical history as described below presented to the with a chief complaint of altered level of consciousness and fevers. According to the daughter, patient was admitted to seen with these about 2-3 weeks ago for chest pain and shortness of breath where she was treated for pneumonia and COPD and was discharged home but she was weak had fever which she was to the hospital about a week ago with a she was treated pneumoniae and ?dka with antibiotics and she was discharged to [facility]. While she was at the [facility] and the [facility] staff noticed to have diffuse up to 102 degree F and she had altered level of consciousness following which EMS were called and patient was brought to the hospital for further evaluation. Past medical history: Hypertension, hyperlipidemia, peripheral neuropathy, insulin-dependent type 2 diabetes mellitus, COPD, obstructive sleep apnea on CPAP, GERD, history of carpal tunnel syndrome osteoporosis, ?hFpEF Past surgical history: Colostomy followed diverticulitis Social history: Patient lives has a history of smoking currently currently denies any drug, alcohol, smoking Home medications: Aspirin, anemia level mg, atorvastatin 40, Lasix 40 mg, metoprolol tartrate 50 mg b.i.d., insulin Lantus, anoro ellipta inhaler, mounjaro Review of systems Patient seen and examined at bedside, sedated and on mechanical ventilation Right upper arm DVT, on anticoagulation Urine output improved after lasix persistant sinus tachycardia Objective vital signs Vital Sign Date Time Temp Pulse Resp B/P (MAP) Pulse Ox O2 Delivery O2 Flow Rate FiO2 11/16/24 19:59 118 18 125/66 (85) 96 30 11/16/24 18:00 Mechanical Ventilator+ 11/16/24 16:00 98.3 98.3 Total Intake and Output 11/15/24 11/15/24 11/16/24 15:00 23:00 07:00 Intake Total 289.504 ml 544.816 ml 78.876 ml Output Total 1800 ml 350 ml Balance 289.504 ml -1255.184 ml -271.124 ml medications Current Medications Medications Dose Ordered Sig/Purvi Route Start Time Stop Time Status Last Admin Dose Admin Norepinephrine Bitartrate 250 ml @ 3.75 mls/hr Q24H IV 11/12/24 08:30 Vancomycin HCl 200 ml @ 200 mls/hr Q12HR IV 11/12/24 10:00 UNV Vancomycin HCl 0 ml @ 0 mls/hr UD IV 11/12/24 08:45 Ipratropium [place] 0.5 mg Q6HR NEB 11/12/24 18:00 11/16/24 18:28 0.5 MG Aspirin 81 mg DAILY PO 11/13/24 10:00 11/16/24 11:11 81 MG Pantoprazole Sodium 40 mg DAILY IV 11/13/24 10:00 11/16/24 11:09 40 MG Midazolam HCl 50 ml @ 1 mls/hr Q24H IV 11/12/24 20:00 11/16/24 02:40 3 MLS/HR Fentanyl Citrate 250 ml @ 2.5 mls/hr Q24H IV 11/12/24 21:30 11/15/24 17:30 20 MLS/HR Enteral Nutritional Formula 1,000 ml 30ML/HR GT 11/13/24 14:00 11/16/24 15:54 1,000 ML Levalbuterol HCl 0.625 mg Q6HR NEB 11/13/24 18:00 11/16/24 18:28 0.625 MG Enoxaparin Sodium 100 mg Q12HR SC 11/13/24 22:00 11/16/24 11:10 100 MG Vancomycin HCl 250 ml @ 200 mls/hr Q16H IV 11/15/24 04:00 11/16/24 11:40 200 MLS/HR Diagnostic Test (Pha) 1 strip Q6HR 11/14/24 18:00 11/16/24 17:49 1 STRIP Insulin Human Regular Q6HR SC 11/14/24 18:00 11/16/24 17:49 6 UNITS Dextrose 50 ml UD PRN IV 11/14/24 18:00 Sodium Chloride 10 ml QSHIFT@10,22 IV 11/14/24 22:00 11/16/24 11:12 10 ML Propofol 100 ml @ 2.844 mls/ hr Q24H IV 11/14/24 23:30 11/15/24 13:50 5.688 MLS/HR Metoclopramide HCl 5 mg Q8HR IV 11/15/24 22:00 11/16/24 15:57 5 MG Nystatin 1 applic BID TOP 11/15/24 22:00 11/16/24 11:13 1 APPLIC Acetaminophen 650 mg Q6HP PRN GT 11/15/24 17:15 11/16/24 00:28 650 MG Insulin Glargine 12 units HS SC 11/15/24 22:00 11/15/24 21:59 12 UNITS Methylprednisolone Sodium Succinate 20 mg BID IV 11/16/24 22:00 Ceftriaxone Sodium 50 ml @ 100 mls/hr DAILY@09 IV 11/17/24 09:00 Purified Water 100 ml Q6HR GT 11/16/24 18:00 11/16/24 18:00 100 ML Examination Constitutional: Patient is off sedation and on mechanical ventilation with a RASS -3 Gen - no pallor, no icterus, no cyanosis, no clubbing, no LAD, no edema . Skin - Patients skin is warm and dry.. HEENT - normocephalic, atraumatic, dry mucous membranes. Neck - full ROM, no LAD, no JVD. Pulmonary - diffuse rales more in the right lung and rales in the left lower lung, no wheezing cardiovascular - variable S1,S2 heard, no added sounds, no murmurs heard. capillary refill normal <2 secs. GI - soft, nondistended abdomen. no hepatospleenomegaly. Bowel sounds normoactive. stool in the colostomy bag Neurological - patient off sedation and on mechanical ventilation, gag reflex present, pupils equal and reactive, opens eyes to physical stimulation laboratory and microbiology Laboratory Tests 11/16/24 13:45 11/16/24 03:30 Test 11/16/24 03:30 Range/Units Serum Glucose 193 H 74-106 mg/dL Microbiology Date/Time Source Procedure Growth Status 11/12/24 18:52 Nose MRSA Screen - Final Complete 11/12/24 12:23 Voided Urine Urine Culture - Final Complete 11/12/24 10:12 Sputum Gram Stain - Final Complete 11/12/24 10:12 Respiratory Culture - Final Methicillin Resistant S.aureus Complete 11/12/24 08:49 Blood Blood Culture - Preliminary NO GROWTH AFTER 72 HOURS OF INCUBATION. Resulted Problem List/Assessment/Plan Problem List/Assessment/Plan Neurology Acute metabolic encephalopathy likely due to sepsis - on mechanical ventilation - RASS -3 Respiratory Acute on chronic hypoxic respiratory failure COPD, ?exacerbation MINOO on cpap ? Pneumonia due to gram +/-bacteria Bilateral pulmonary edema - ABG compensated - chest x-ray shows bilateral interstitial opacities - ventilator at minimal settings with a FiO2 30%, peep of 5 - DuoNebs q.6 hours - IV antibiotics vancomycin and cefepime - sputum cultures growing MRSA - solumedrol 20mg bid Cardiovascular Acute on chronic heart failure with preserved ejection fraction Right upper arm DVT - ECHO 10/2024 shows hyperdynamic systolic function. LVEF was around 76% - BNP normal - right upper arm venous Doppler showed no flow in axillary and the subclavian vein - enoxaparin therapeutic dose Infectious disease Sepsis likely due to MRSA pneumonia with acute organ dysfunction without septic shock - blood cultures pending after 72 hours showed no growth - urine cultures show no growth - sputum cultures growing MRSA - IV antibiotics with the vancomycin and ceftriaxone Endocrinology Insulin-dependent type 2 diabetes mellitus with peripheral neuropathy Morbid obesity - recent Hba1C 7.8% - on insulin sliding scale - lantus 12 units HS GI History of diverticulitis status post left lower quadrant colostomy Cholelithiasis Mild hepatomegaly and hepatic steatosis (seen on CT) - on reglan 11/16- CPAP trial but the patient was tachypnoeic and had to be aborted. CPAP again for the morning. Diet: tube feeding DVT prophylaxis: Enoxaparin PUD prophylaxis: Protonix left upper arm PICC line inserted on 11/14 Stauffer's catheter Goals of care discussed with the patient's daughters for over 26 minutes. Full code Critical care time spent excluding procedures: 61 minutes Plan discussed with Plan discussed with: Daughter (Both daughters), Other (RN ( Martha )) My Orders My Orders Orders - ALEXUS ABDI RESIDENT Procedure Category Date Status Time Ceftriaxone 1gm/50ml PHA 11/17/24 In Process D5w (Rocephin) 09:00 Free Water PHA 11/16/24 In Process 18:00 Dietary Evaluation Review Comments: 1. Suggest formula Osmolite 1.2 @ 50 ml/hr (GOAL). Begin at 10 ml/hr, advance by 10 ml Q4 hrs or as tolerated to goal-rate of 50 ml/hr x 24 hrs 2. If BG becomes uncontrolled, may change to Glucerna 1.2 at same goal-rate 3. Provide free water flushes of 30 ml Q6 hrs (120 ml total); adjust PRN 4. Monitor BMP/lytes and replete to WNL/PRN TF Provision: TF at goal to provide 1200 ml total volume, 1440 kcal (+211 kcal via propofol = 1651 kcal), 66 gm pro, 189 gm CHO, 0 gm fiber, 984 ml H20 (meets 100% est. kcal needs, 100% est. pro needs) Expected Outcomes/Goals: Adequate enteral infusion, weight maintenance. Date of Service: November 16, 2024 Billing Provider: KOBY MCCORMICK MD Common Visit Codes: 18390-[id number] CARE 30-74 MIN ALEXUS ABDI RESIDENT November 16, 2024 20:10 KOBY MCCORMICK MD November 19, 2024 12:14
[2024-11-16] MEDS: methylPREDNISolone SOD SUCC 40 MG/ML VL IV SCH (21:30)
[2024-11-16] MEDS: SODIUM CHLORIDE 0.9% 250 ML IV ONE (21:30)
[2024-11-17] VITALS (105 sets, daily range): BP systolic 93–150; BP diastolic 40–83; PULSE 82–134; RESP 14–34; TEMP 97.8–100.4; O2SAT 94–100
[2024-11-17] MEDS: DEXMEDETOMIDINE HCL IN D5W 100 ML IV SCH (02:46)
[2024-11-17 04:07] LABS: Basophils # (auto) 0 10 ^3/uL (0-0.2); Basophils % (auto) 0.3 % (0.0-2.0); Eosinophils # (auto) 0 10 ^3/uL (0-0.8); Hematocrit 35.2 % (36.0-46.0); Lymphocytes # (auto) 0.5 10 ^3/uL (0.4-5.4); Lymphocytes % (auto) 7.4 % (10.0-50.0); Mean Corpuscular Hemoglobin 30.9 pg (28.0-32.0); Mean Corpuscular Volume 90.7 fL (80.0-100.0); Monocytes # (auto) 0.2 10 ^3/uL (0-1.3); Monocytes % (auto) 3.5 % (0.0-12.0); Neutrophils # (auto) 6.1 10 ^3/uL (1.6-8.6); Neutrophils % (auto) 88.8 % (37.0-80.0); Nucleated Red Blood Cells % 0.1 %; Platelet Count (auto) 172 10^3/uL (140-450); Red Blood Cells 3.88 10^6/uL (4.0-5.20); Red Cell Distribution Width 13.9 % (11.8-14.3); White Blood Cell 6.9 10^3/uL (4.4-10.8)
[2024-11-17 04:34] LABS: Anion Gap 8 (5-15); Chloride 102 mmol/L (98-107); Sodium 142 mmol/L (136-145)
[2024-11-17 04:35] LABS: Calcium 9.2 mg/dL (8.7-10.4)
[2024-11-17 04:38] LABS: Carbon Dioxide 32 mmol/L (20-31)
[2024-11-17 04:40] LABS: BUN/Creatinine Ratio 22.1 (10.0-20.0); Blood Urea Nitrogen 17 mg/dL (9-23)
[2024-11-17 04:42] LABS: Glucose 353 mg/dL (74-106)
--- NOTE | 2024-11-17 05:12 | DVH ---
CHEST RADIOGRAPH Indication: Right sided rales, on vent Technique: Single frontal view of the chest was obtained Comparison: XY CHEST XRAY 1 VIEW on DOS: 11/16/24, XY CHEST PORTABLE on DOS: 11/15/24, XY CHEST XRAY 1 V IEW on DOS: 11/15/24 FINDINGS: Lines and Tubes: The endotracheal tube terminates 6.5 cm above the kerry. The enteric tube courses b elow the left hemidiaphragm and the tip extends outside the field of view. Left PICC terminates in th e superior vena cava. Lungs: Pulmonary congestion similar to prior study. Pleura: No effusion. No pneumothorax. Cardiomediastinal contours: Cardiomegaly. Bones: No acute osseous abnormality. IMPRESSION: 1. No significant interval change in position of the support lines and tubes or appearance of the raman gs.
[2024-11-17 06:23] LABS: Base Excess 7.3 mmol/L (-2.0-3.0)
[2024-11-17] MEDS ORDERED: DEXTROSE (50%) 50ML SYRG IV PRN (07:00)
[2024-11-17] MEDS: InsuLIN REG 1unit/0.01ml Soln (100units/ml) SC SCH (08:00)
[2024-11-17] MEDS: ACCU-CHEK COMFORT CURVE STRIP VI SCH (08:26)
[2024-11-17] MEDS: INSULIN LANTUS (GLARGINE) 1 /0.01ml (100units/ml) SC ONE (08:26)
--- NOTE | 2024-11-17 09:46 | DVHPNRES ---
Progress Note Date Seen: November 17, 2024 Resident Creating Document: ALEXUS ABDI RESIDENT Medical Necessity Reason Pt with a Central, PICC or Fol: Yes The following are medically ne: PICC Line, Stauffer Catheter Subjective Review of Systems Patient was a 69-year-old female with past medical history as described below presented to the with a chief complaint of altered level of consciousness and fevers. According to the daughter, patient was admitted to seen with these about 2-3 weeks ago for chest pain and shortness of breath where she was treated for pneumonia and COPD and was discharged home but she was weak had fever which she was to the hospital about a week ago with a she was treated pneumoniae and ?dka with antibiotics and she was discharged to [facility]. While she was at the [facility] staff noticed to have diffuse up to 102 degree F and she had altered level of consciousness following which EMS were called and patient was brought to the hospital for further evaluation. While in the hospital patient was ordered unable to maintain airway following which she was intubated and put on mechanical ventilation. Patient had fevers in the hospital and was started on empiric antibiotics with the vancomycin and cefepime. Patient was not put on vasopressors any time during the hospitalization and map> 65. Pancultures were done and sputum culture showed growth of MRSA. Patient also has underlying COPD for which she is on Solu-Medrol 20 mg b.i.d.. Echo showed LVEF 75% with likely acute on chronic heart failure with preserved ejection fraction, diagnosed with a right upper arm DVT for which she is on therapeutic dose Lovenox. For current issues Currently afebrile and on antibiotics vancomycin and ceftriaxone. Right upper arm DVT and is on Lovenox therapeutic dose but held today on 11/17 due to bleeding in the Stauffer's catheter. Acute on chronic hypoxic respiratory failure with MRSA pneumonia and probable COPD exacerbation on antibiotics and Solu-Medrol b.i.d., on mechanical ventilation underwent CPAP trial on 11/17, could not be completed. Past medical history: Hypertension, hyperlipidemia, peripheral neuropathy, insulin-dependent type 2 diabetes mellitus, COPD, obstructive sleep apnea on CPAP, GERD, history of carpal tunnel syndrome osteoporosis, ?hFpEF Past surgical history: Colostomy followed diverticulitis Social history: Patient lives has a history of smoking currently currently denies any drug, alcohol, smoking Home medications: Aspirin, anemia level mg, atorvastatin 40, Lasix 40 mg, metoprolol tartrate 50 mg b.i.d., insulin Lantus, anoro ellipta inhaler, mounjaro Review of systems Patient seen and examined at bedside, sedated and on mechanical ventilation Right upper arm DVT, on anticoagulation patient is off sedation and responding to voice commands but failed CPAP trail today Objective vital signs Vital Sign Date Time Temp Pulse Resp B/P (MAP) Pulse Ox O2 Delivery O2 Flow Rate FiO2 11/17/24 09:30 99 19 122/56 (78) 97 11/17/24 08:00 Mechanical Ventilator+ 30 30 11/17/24 08:00 97.8 97.8 Total Intake and Output 11/16/24 11/16/24 11/17/24 15:00 23:00 07:00 Intake Total 440 ml 702.16 ml Output Total 2250 ml 30 ml Balance -1810 ml 672.16 ml medications Current Medications Medications Dose Ordered Sig/Purvi Route Start Time Stop Time Status Last Admin Dose Admin Norepinephrine Bitartrate 250 ml @ 3.75 mls/hr Q24H IV 11/12/24 08:30 Vancomycin HCl 200 ml @ 200 mls/hr Q12HR IV 11/12/24 10:00 UNV Vancomycin HCl 0 ml @ 0 mls/hr UD IV 11/12/24 08:45 Ipratropium [place] 0.5 mg Q6HR NEB 11/12/24 18:00 11/17/24 06:31 0.5 MG Aspirin 81 mg DAILY PO 11/13/24 10:00 11/16/24 11:11 81 MG Pantoprazole Sodium 40 mg DAILY IV 11/13/24 10:00 11/16/24 11:09 40 MG Midazolam HCl 50 ml @ 1 mls/hr Q24H IV 11/12/24 20:00 11/16/24 02:40 3 MLS/HR Fentanyl Citrate 250 ml @ 2.5 mls/hr Q24H IV 11/12/24 21:30 11/15/24 17:30 20 MLS/HR Enteral Nutritional Formula 1,000 ml 30ML/HR GT 11/13/24 14:00 11/16/24 15:54 1,000 ML Levalbuterol HCl 0.625 mg Q6HR NEB 11/13/24 18:00 11/17/24 06:31 0.625 MG Enoxaparin Sodium 100 mg Q12HR SC 11/13/24 22:00 11/16/24 21:31 100 MG Vancomycin HCl 250 ml @ 200 mls/hr Q16H IV 11/15/24 04:00 11/17/24 05:19 200 MLS/HR Sodium Chloride 10 ml QSHIFT@10,22 IV 11/14/24 22:00 11/16/24 21:40 10 ML Propofol 100 ml @ 2.844 mls/ hr Q24H IV 11/14/24 23:30 11/15/24 13:50 5.688 MLS/HR Metoclopramide HCl 5 mg Q8HR IV 11/15/24 22:00 11/17/24 05:25 5 MG Nystatin 1 applic BID TOP 11/15/24 22:00 11/16/24 21:39 1 APPLIC Acetaminophen 650 mg Q6HP PRN GT 11/15/24 17:15 11/17/24 01:58 650 MG Methylprednisolone Sodium Succinate 20 mg BID IV 11/16/24 22:00 11/16/24 21:30 20 MG Ceftriaxone Sodium 50 ml @ 100 mls/hr DAILY@09 IV 11/17/24 09:00 Purified Water 100 ml Q6HR GT 11/16/24 18:00 11/17/24 05:25 100 ML Insulin Glargine 15 units HS SC 11/17/24 22:00 Diagnostic Test (Pha) 1 strip IQ4HR 11/17/24 08:00 11/17/24 08:26 1 STRIP Insulin Human Regular IQ4HR SC 11/17/24 08:00 Dextrose 50 ml UD PRN IV 11/17/24 07:00 laboratory and microbiology Laboratory Tests 11/17/24 03:40 Test 11/17/24 03:40 Range/Units Serum Glucose 353 H 74-106 mg/dL Microbiology Date/Time Source Procedure Growth Status 11/12/24 18:52 Nose MRSA Screen - Final Complete 11/12/24 12:23 Voided Urine Urine Culture - Final Complete 11/12/24 10:12 Sputum Gram Stain - Final Complete 11/12/24 10:12 Respiratory Culture - Final Methicillin Resistant S.aureus Complete 11/12/24 08:49 Blood Blood Culture - Final NO GROWTH AFTER 5 DAYS OF INCUBATION. Complete Problem List/Assessment/Plan Problem List/Assessment/Plan Neurology Acute metabolic encephalopathy likely due to sepsis - on mechanical ventilation - RASS -3 Respiratory Acute on chronic hypoxic respiratory failure COPD, ?exacerbation MINOO on cpap ? Pneumonia due to gram +/-bacteria Bilateral pulmonary edema - ABG compensated - chest x-ray shows bilateral interstitial opacities - ventilator at minimal settings with a FiO2 30%, peep of 5 - DuoNebs q.6 hours - IV antibiotics vancomycin and cefepime - sputum cultures growing MRSA - solumedrol 20mg bid Cardiovascular Acute on chronic heart failure with preserved ejection fraction Right upper arm DVT - ECHO 10/2024 shows hyperdynamic systolic function. LVEF was around 76% - BNP normal - right upper arm venous Doppler showed no flow in axillary and the subclavian vein - enoxaparin therapeutic dose Infectious disease Sepsis likely due to MRSA pneumonia with acute organ dysfunction without septic shock - blood cultures pending after 72 hours showed no growth - urine cultures show no growth - sputum cultures growing MRSA - IV antibiotics with the vancomycin and ceftriaxone Endocrinology Insulin-dependent type 2 diabetes mellitus with peripheral neuropathy Morbid obesity - recent Hba1C 7.8% - on insulin sliding scale - lantus 12 units HS GI History of diverticulitis status post left lower quadrant colostomy Cholelithiasis Mild hepatomegaly and hepatic steatosis (seen on CT) - on reglan 11/16- CPAP trial but the patient was tachypnoeic and had to be aborted. 11/17- CPAP trial failed in the morning Diet: tube feeding DVT prophylaxis: Enoxaparin PUD prophylaxis: Protonix left upper arm PICC line inserted on 11/14 Stauffer's catheter Goals of care discussed with the patient's daughters for over 23 minutes. Full code Critical care time spent excluding procedures: 45 minutes Plan discussed with Plan discussed with: Daughter, Other (RN ( Elizabet )) My Orders My Orders Orders - ALEXUS ABDI RESIDENT Procedure Category Date Status Time Ceftriaxone 1gm/50ml PHA 11/17/24 In Process D5w (Rocephin) 09:00 Free Water PHA 11/16/24 In Process 18:00 Chest Xray 1 View XY 11/17/24 Resulted 04:00 Abg W/ Co-Ox RT 11/17/24 Logged 04:00 Insulin Lantus PHA 5/2/25 In Process (Glargine) (Lantus) 22:00 Glucose Blood PHA 11/17/24 In Process (Accu-Chek Comfort 08:00 Insulin R (Human) PHA 11/17/24 In Process (Insulin R) 08:00 Dextrose 50% Syringe PHA 11/17/24 In Process 07:00 Dietary Evaluation Review Comments: 1. Suggest formula Osmolite 1.2 @ 50 ml/hr (GOAL). Begin at 10 ml/hr, advance by 10 ml Q4 hrs or as tolerated to goal-rate of 50 ml/hr x 24 hrs 2. If BG becomes uncontrolled, may change to Glucerna 1.2 at same goal-rate 3. Provide free water flushes of 30 ml Q6 hrs (120 ml total); adjust PRN 4. Monitor BMP/lytes and replete to WNL/PRN TF Provision: TF at goal to provide 1200 ml total volume, 1440 kcal (+211 kcal via propofol = 1651 kcal), 66 gm pro, 189 gm CHO, 0 gm fiber, 984 ml H20 (meets 100% est. kcal needs, 100% est. pro needs) Expected Outcomes/Goals: Adequate enteral infusion, weight maintenance. ALEXUS ABDI RESIDENT November 17, 2024 09:46
[2024-11-17] MEDS: cefTRIAXone 1GM/50ML D5W 50 ML IV SCH (10:11)
--- NOTE | 2024-11-17 11:17 | DVH ---
INDICATION: ETT tube advancement TECHNIQUE: Single frontal view of the chest was obtained COMPARISON: XY CHEST XRAY 1 VIEW on DOS: 11/17/24, XY CHEST XRAY 1 VIEW on DOS: 11/16/24, XY CHEST PORTAB LE on DOS: 11/15/24, XY CHEST XRAY 1 VIEW on DOS: 11/15/24, XY CHEST XRAY 1 VIEW on DOS: 11/14/24, XY CH EST XRAY 1 VIEW on DOS: 11/17/24 FINDINGS: Lines and Tubes: The endotracheal tube terminates 6.5 cm above the kerry. The enteric tube courses b elow the left hemidiaphragm and the tip extends outside the field of view. Left PICC terminates in th e superior vena cava. Lungs: Pulmonary congestion similar to prior study. Pleura: No effusion. No pneumothorax. Cardiomediastinal contours: Cardiomegaly. Bones: No acute osseous abnormality. IMPRESSION: 1. No significant interval change in position of the support lines and tubes or appearance of the raman gs.
[2024-11-17] MEDS: SODIUM CHLORIDE 0.9% 250 ML IV ONE (14:30)
[2024-11-17] MEDS: FUROSEMIDE 20 MG/2 ML VIAL IV ONE (18:11)
[2024-11-17] MEDS: INSULIN LANTUS (GLARGINE) 1 /0.01ml (100units/ml) SC SCH (22:26)
[2024-11-18] VITALS (92 sets, daily range): BP systolic 122–184; BP diastolic 47–87; PULSE 96–128; RESP 14–35; TEMP 98.4–98.9; O2SAT 92–99
[2024-11-18 03:57] LABS: Basophils # (auto) 0 10 ^3/uL (0-0.2); Basophils % (auto) 0.1 % (0.0-2.0); Eosinophils # (auto) 0 10 ^3/uL (0-0.8); Eosinophils % (auto) 0.4 % (0.0-7.0); Hematocrit 36.1 % (36.0-46.0); Hemoglobin 12.1 g/dL (12.2-16.2); Lymphocytes # (auto) 0.9 10 ^3/uL (0.4-5.4); Lymphocytes % (auto) 9.2 % (10.0-50.0); Mean Corpuscular Hemoglobin 30.5 pg (28.0-32.0); Mean Corpuscular Hgb Conc. 33.5 g/dL (32.0-36.0); Mean Corpuscular Volume 90.9 fL (80.0-100.0); Monocytes # (auto) 0.5 10 ^3/uL (0-1.3); Monocytes % (auto) 5.9 % (0.0-12.0); Neutrophils # (auto) 7.8 10 ^3/uL (1.6-8.6); Neutrophils % (auto) 84.4 % (37.0-80.0); Platelet Count (auto) 204 10^3/uL (140-450); Red Blood Cells 3.97 10^6/uL (4.0-5.20); Red Cell Distribution Width 13.8 % (11.8-14.3); White Blood Cell 9.3 10^3/uL (4.4-10.8)
[2024-11-18 04:18] LABS: Anion Gap 5 (5-15); Chloride 100 mmol/L (98-107); Sodium 140 mmol/L (136-145)
[2024-11-18 04:19] LABS: Calcium 9.6 mg/dL (8.7-10.4)
[2024-11-18 04:24] LABS: BUN/Creatinine Ratio 29.5 (10.0-20.0); Blood Urea Nitrogen 18 mg/dL (9-23); Carbon Dioxide 35 mmol/L (20-31); Glucose 254 mg/dL (74-106); Magnesium 1.8 mg/dL (1.6-2.6)
--- NOTE | 2024-11-18 06:10 | DVH ---
CHEST RADIOGRAPH Indication: on vent Technique: Single frontal view of the chest was obtained COMPARISON: XY CHEST PORTABLE on DOS: 11/17/24, XY CHEST XRAY 1 VIEW on DOS: 11/17/24, XY CHEST XRAY 1 EW on DOS: 11/16/24, XY CHEST PORTABLE on DOS: 11/15/24, XY CHEST XRAY 1 VIEW on DOS: 11/15/24 FINDINGS: Lines and Tubes: Unchanged. Lungs: Stable appearing diffuse increased prominence of the pulmonary vasculature. Pleura: No effusion. No pneumothorax. Cardiomediastinal contours: Cardiomegaly. Bones: Unremarkable IMPRESSION: 1. Stable appearing diffuse increased prominence of the pulmonary vasculature. 2. Cardiomegaly. 3. Lines and tubes unchanged.
[2024-11-18 09:06] LABS: Base Excess 9.9 mmol/L (-2.0-3.0)
[2024-11-18] MEDS ORDERED: DEXTROSE (50%) 50ML SYRG IV PRN (09:15)
[2024-11-18 11:20] LABS: Base Excess 8.3 mmol/L (-2.0-3.0)
[2024-11-18] MEDS: InsuLIN REG 1unit/0.01ml Soln (100units/ml) SC SCH (11:37)
[2024-11-18] MEDS: ACCU-CHEK COMFORT CURVE STRIP VI SCH (12:27)
--- NOTE | 2024-11-18 12:27 | DVHPN2 ---
Reviewed: Care Plan Changes from previous H/P or p: No Changes Objective Vitals Vital Signs Date Time Temp Pulse Resp B/P (MAP) Pulse Ox O2 Delivery O2 Flow Rate FiO2 11/18/24 12:02 26 94 Mechanical Ventilator+ 30 30 11/18/24 12:00 98.9 108 151/54 (86) 98.9 Intake/Output Intake and Output 11/18/24 07:00 Intake Total 1521.256 ml Output Total 1860 ml Balance -338.744 ml Intake Oral 510 ml IV Total 597.256 ml Tube Feeding 414 ml Output Urine Total 1800 ml Stool Total 60 ml Medications Current Medications Medications Dose Ordered Sig/Purvi Route Start Time Stop Time Status Last Admin Dose Admin Norepinephrine Bitartrate 250 ml @ 3.75 mls/hr Q24H IV 11/12/24 08:30 Vancomycin HCl 200 ml @ 200 mls/hr Q12HR IV 11/12/24 10:00 UNV Vancomycin HCl 0 ml @ 0 mls/hr UD IV 11/12/24 08:45 Ipratropium [place] 0.5 mg Q6HR NEB 11/12/24 18:00 11/18/24 11:54 0.5 MG Aspirin 81 mg DAILY PO 11/13/24 10:00 11/18/24 08:53 81 MG Pantoprazole Sodium 40 mg DAILY IV 11/13/24 10:00 11/18/24 08:52 40 MG Midazolam HCl 50 ml @ 1 mls/hr Q24H IV 11/12/24 20:00 11/16/24 02:40 3 MLS/HR Fentanyl Citrate 250 ml @ 2.5 mls/hr Q24H IV 11/12/24 21:30 11/17/24 15:53 2.5 MLS/HR Enteral Nutritional Formula 1,000 ml 30ML/HR GT 11/13/24 14:00 11/16/24 15:54 1,000 ML Levalbuterol HCl 0.625 mg Q6HR NEB 11/13/24 18:00 11/18/24 11:54 0.625 MG Enoxaparin Sodium 100 mg Q12HR SC 11/13/24 22:00 11/17/24 10:14 100 MG Vancomycin HCl 250 ml @ 200 mls/hr Q16H IV 11/15/24 04:00 11/18/24 11:36 200 MLS/HR Sodium Chloride 10 ml QSHIFT@10,22 IV 11/14/24 22:00 11/18/24 08:53 10 ML Propofol 100 ml @ 2.844 mls/ hr Q24H IV 11/14/24 23:30 11/17/24 20:21 2.844 MLS/HR Metoclopramide HCl 5 mg Q8HR IV 11/15/24 22:00 11/18/24 05:50 5 MG Nystatin 1 applic BID TOP 11/15/24 22:00 11/18/24 08:54 1 APPLIC Acetaminophen 650 mg Q6HP PRN GT 11/15/24 17:15 11/17/24 01:58 650 MG Methylprednisolone Sodium Succinate 20 mg BID IV 11/16/24 22:00 11/18/24 08:53 20 MG Ceftriaxone Sodium 50 ml @ 100 mls/hr DAILY@09 IV 11/17/24 09:00 11/18/24 08:52 100 MLS/HR Purified Water 100 ml Q6HR GT 11/16/24 18:00 11/18/24 11:41 100 ML Insulin Glargine 15 units HS SC 11/17/24 22:00 11/17/24 22:26 15 UNITS Diagnostic Test (Pha) 1 strip Q6HR 11/18/24 12:00 Insulin Human Regular Q6HR SC 11/18/24 12:00 11/18/24 11:37 6 UNITS Dextrose 50 ml UD PRN IV 11/18/24 09:15 Laboratory Results Laboratory Tests 11/18/24 03:32 Chemistry Test 11/18/24 03:32 Calcium Level 9.6 mg/dL (8.7-10.4) Magnesium Level 1.8 mg/dL (1.6-2.6) Urinalysis Test 11/12/24 12:23 Urine Color Colorless (Yellow) Urine Clarity Clear (Clear) Urine pH 5.0 (5.0-9.0) Urine Specific [place] 1.007 (1.001-1.035) Urine Protein Negative (Negative) Urine Ketones Negative (Negative) Urine Blood 3+ /uL (Negative) H Urine Nitrite Negative (Negative) Urine Bilirubin Negative (Negative) Urine Urobilinogen Normal mg/dL (Negative) Urine Leukocyte Esterase Trace /uL (Negative) Urine RBC 104 /hpf (0 - 4) Urine Microscopic WBC 6 /HPF (0-5) H Urine Squamous Epithelial Cells Few /hpf (<5) Urine Uric Acid Crystals Few /hpf (None Seen) Urine Bacteria None seen /hpf (None Seen) Urine Mucus Few (None Seen) Urine Glucose 2+ mg/dL (Normal) H Blood Gas Results Test 11/18/24 07:05 11/18/24 11:15 Arterial Blood pH 7.471 (7.350-7.450) 7.475 (7.350-7.450) FiO2 % 30.0 30.0 Microbiology Microbiology Date/Time Source Procedure Growth Status 11/12/24 18:52 Nose MRSA Screen - Final Complete 11/12/24 12:23 Voided Urine Urine Culture - Final Complete 11/12/24 10:12 Sputum Gram Stain - Final Complete 11/12/24 10:12 Respiratory Culture - Final Methicillin Resistant S.aureus Complete 11/12/24 08:49 Blood Blood Culture - Final NO GROWTH AFTER 5 DAYS OF INCUBATION. Complete Assessment/Plan Assessment/Plan Acute metabolic encephalopathy likely due to sepsis Acute on chronic hypoxic respiratory failure COPD, ?exacerbation MINOO on cpap ? Pneumonia due to gram +/-bacteria Bilateral pulmonary edema Acute on chronic heart failure with preserved ejection fraction Right upper arm DVT Sepsis likely due to MRSA pneumonia with acute organ dysfunction without septic shock Insulin-dependent type 2 diabetes mellitus with peripheral neuropathy Morbid obesity History of diverticulitis status post left lower quadrant colostomy Cholelithiasis Mild hepatomegaly and hepatic steatosis (seen on CT) 11/18/2024: remains on vent possible extubation today Plan discussed with: Patient, Other (nursing) Date of Service: November 18, 2024 Billing Provider: LOGAN STEPHENSON DO Common Visit Codes: [id number] CARE 30-74 MIN LOGAN STEPHENSON DO November 18, 2024 12:27
--- NOTE | 2024-11-18 13:03 | DVHPN2 ---
Progress Note - Dictate Date Seen: November 18, 2024 Medical Necessity Reason Pt with a Central, PICC or Fol: Yes The following are medically ne: PICC Line, Stauffer Catheter vital signs Vital Sign Date Time Temp Pulse Resp B/P (MAP) Pulse Ox O2 Delivery O2 Flow Rate FiO2 11/18/24 12:02 26 94 Mechanical Ventilator+ 30 30 11/18/24 12:00 98.9 108 151/54 (86) 98.9 Total Intake and Output 11/17/24 11/17/24 11/18/24 15:00 23:00 07:00 Intake Total 209.16 ml 631.032 ml 681.064 ml Output Total 360 ml 1500 ml Balance 209.16 ml 271.032 ml -818.936 ml medications Current Medications Medications Dose Ordered Sig/Purvi Route Start Time Stop Time Status Last Admin Dose Admin Norepinephrine Bitartrate 250 ml @ 3.75 mls/hr Q24H IV 11/12/24 08:30 Vancomycin HCl 200 ml @ 200 mls/hr Q12HR IV 11/12/24 10:00 UNV Vancomycin HCl 0 ml @ 0 mls/hr UD IV 11/12/24 08:45 Ipratropium [place] 0.5 mg Q6HR NEB 11/12/24 18:00 11/18/24 11:54 0.5 MG Aspirin 81 mg DAILY PO 11/13/24 10:00 11/18/24 08:53 81 MG Pantoprazole Sodium 40 mg DAILY IV 11/13/24 10:00 11/18/24 08:52 40 MG Midazolam HCl 50 ml @ 1 mls/hr Q24H IV 11/12/24 20:00 11/16/24 02:40 3 MLS/HR Fentanyl Citrate 250 ml @ 2.5 mls/hr Q24H IV 11/12/24 21:30 11/17/24 15:53 2.5 MLS/HR Enteral Nutritional Formula 1,000 ml 30ML/HR GT 11/13/24 14:00 11/16/24 15:54 1,000 ML Levalbuterol HCl 0.625 mg Q6HR NEB 11/13/24 18:00 11/18/24 11:54 0.625 MG Enoxaparin Sodium 100 mg Q12HR SC 11/13/24 22:00 11/17/24 10:14 100 MG Vancomycin HCl 250 ml @ 200 mls/hr Q16H IV 11/15/24 04:00 11/18/24 11:36 200 MLS/HR Sodium Chloride 10 ml QSHIFT@10,22 IV 11/14/24 22:00 11/18/24 08:53 10 ML Propofol 100 ml @ 2.844 mls/ hr Q24H IV 11/14/24 23:30 11/17/24 20:21 2.844 MLS/HR Metoclopramide HCl 5 mg Q8HR IV 11/15/24 22:00 11/18/24 05:50 5 MG Nystatin 1 applic BID TOP 11/15/24 22:00 11/18/24 08:54 1 APPLIC Acetaminophen 650 mg Q6HP PRN GT 11/15/24 17:15 11/17/24 01:58 650 MG Methylprednisolone Sodium Succinate 20 mg BID IV 11/16/24 22:00 11/18/24 08:53 20 MG Ceftriaxone Sodium 50 ml @ 100 mls/hr DAILY@09 IV 11/17/24 09:00 11/18/24 08:52 100 MLS/HR Purified Water 100 ml Q6HR GT 11/16/24 18:00 11/18/24 11:41 100 ML Insulin Glargine 15 units HS SC 11/17/24 22:00 11/17/24 22:26 15 UNITS Diagnostic Test (Pha) 1 strip Q6HR 11/18/24 12:00 Insulin Human Regular Q6HR SC 11/18/24 12:00 11/18/24 11:37 6 UNITS Dextrose 50 ml UD PRN IV 11/18/24 09:15 laboratory and microbiology Laboratory Tests 11/18/24 03:32 Test 11/18/24 03:32 Range/Units Serum Glucose 254 H 74-106 mg/dL Assessment/Plan Covering for Dr. Osorio Impression Acute hypoxemic respiratory failure Pulmonary edema Pneumonia MINOO Patient seen and examined in ICU Events On mechanical ventilation S/p intubation PEEP 5, FiO2 30% Hemodynamics improving Labs and imaging reviewed ABG reviewed Management Vent support Titrate to maintain sats 90% or above Sedation holiday daily If patient follows commands, proceed to weaning trial Pressure support 01/20, extubate when ready Continue antibiotics F/u cultures Bronchodilators Monitor renal function Monitor electrolytes Supplement as needed Pressors as needed for hemodynamic support To maintain a mean arterial pressure of 65 mmHg DVT prophylaxis Critical care time 35 minutes Dietary Evaluation Review Comments: 1. Suggest formula Osmolite 1.2 @ 50 ml/hr (GOAL). Begin at 10 ml/hr, advance by 10 ml Q4 hrs or as tolerated to goal-rate of 50 ml/hr x 24 hrs 2. If BG becomes uncontrolled, may change to Glucerna 1.2 at same goal-rate 3. Provide free water flushes of 30 ml Q6 hrs (120 ml total); adjust PRN 4. Monitor BMP/lytes and replete to WNL/PRN TF Provision: TF at goal to provide 1200 ml total volume, 1440 kcal (+211 kcal via propofol = 1651 kcal), 66 gm pro, 189 gm CHO, 0 gm fiber, 984 ml H20 (meets 100% est. kcal needs, 100% est. pro needs) Expected Outcomes/Goals: Adequate enteral infusion, weight maintenance. Plan discussed with: Other (Rn) BYRON BEARDEN MD November 18, 2024 13:03
[2024-11-18] MEDS: hydrALAZINE HCL 20 MG/ML VL IV PRN (15:33)
[2024-11-19] VITALS (62 sets, daily range): BP systolic 135–172; BP diastolic 53–84; PULSE 88–125; RESP 13–35; TEMP 98–99.1; O2SAT 90–99
[2024-11-19 03:38] LABS: Basophils # (auto) 0 10 ^3/uL (0-0.2); Basophils % (auto) 0.3 % (0.0-2.0); Eosinophils # (auto) 0 10 ^3/uL (0-0.8); Eosinophils % (auto) 0.3 % (0.0-7.0); Hematocrit 38.2 % (36.0-46.0); Hemoglobin 13.2 g/dL (12.2-16.2); Lymphocytes # (auto) 0.9 10 ^3/uL (0.4-5.4); Lymphocytes % (auto) 10.3 % (10.0-50.0); Mean Corpuscular Hemoglobin 31.2 pg (28.0-32.0); Mean Corpuscular Hgb Conc. 34.4 g/dL (32.0-36.0); Mean Corpuscular Volume 90.6 fL (80.0-100.0); Monocytes # (auto) 0.5 10 ^3/uL (0-1.3); Monocytes % (auto) 5.8 % (0.0-12.0); Neutrophils # (auto) 7.6 10 ^3/uL (1.6-8.6); Neutrophils % (auto) 83.3 % (37.0-80.0); Platelet Count (auto) 235 10^3/uL (140-450); Red Blood Cells 4.22 10^6/uL (4.0-5.20); Red Cell Distribution Width 13.7 % (11.8-14.3); White Blood Cell 9.1 10^3/uL (4.4-10.8)
[2024-11-19 03:46] LABS: Calcium 9.8 mg/dL (8.7-10.4); Chloride 102 mmol/L (98-107); Sodium 144 mmol/L (136-145)
[2024-11-19 03:47] LABS: Anion Gap 6 (5-15)
[2024-11-19 03:52] LABS: BUN/Creatinine Ratio 24.1 (10.0-20.0); Blood Urea Nitrogen 14 mg/dL (9-23)
[2024-11-19 03:53] LABS: Carbon Dioxide 36 mmol/L (20-31); Glucose 204 mg/dL (74-106); Magnesium 1.7 mg/dL (1.6-2.6); Potassium 3.4 mmol/L (3.5-5.1)
[2024-11-19] MEDS ORDERED: POTASSIUM CHL 20MEQ/100ML 100 ML IV ONE (05:30)
[2024-11-19] MEDS: POTASSIUM CHL 20MEQ/50ML 50 ML IV ONE (05:57)
--- NOTE | 2024-11-19 12:38 | DVHPN2 ---
Progress Note - Dictate Date Seen: November 19, 2024 Medical Necessity Reason Pt with a Central, PICC or Fol: Yes The following are medically ne: PICC Line, Stauffer Catheter vital signs Vital Sign Date Time Temp Pulse Resp B/P (MAP) Pulse Ox O2 Delivery O2 Flow Rate FiO2 11/19/24 12:20 112 16 94 11/19/24 12:11 Nasal Cannula 2.0 11/19/24 12:11 28 11/19/24 10:30 157/63 (94) 11/19/24 08:00 98.9 98.9 Total Intake and Output 11/18/24 11/18/24 11/19/24 15:00 23:00 07:00 Intake Total 571.030 ml 240 ml 250 ml Output Total 1250 ml 1150 ml Balance 571.030 ml -1010 ml -900 ml medications Current Medications Medications Dose Ordered Sig/Purvi Route Start Time Stop Time Status Last Admin Dose Admin Norepinephrine Bitartrate 250 ml @ 3.75 mls/hr Q24H IV 11/12/24 08:30 Vancomycin HCl 200 ml @ 200 mls/hr Q12HR IV 11/12/24 10:00 UNV Vancomycin HCl 0 ml @ 0 mls/hr UD IV 11/12/24 08:45 Ipratropium [place] 0.5 mg Q6HR NEB 11/12/24 18:00 11/19/24 12:11 0.5 MG Aspirin 81 mg DAILY PO 11/13/24 10:00 11/18/24 08:53 81 MG Pantoprazole Sodium 40 mg DAILY IV 11/13/24 10:00 11/19/24 08:51 40 MG Midazolam HCl 50 ml @ 1 mls/hr Q24H IV 11/12/24 20:00 11/16/24 02:40 3 MLS/HR Fentanyl Citrate 250 ml @ 2.5 mls/hr Q24H IV 11/12/24 21:30 11/17/24 15:53 2.5 MLS/HR Enteral Nutritional Formula 1,000 ml 30ML/HR GT 11/13/24 14:00 11/16/24 15:54 1,000 ML Levalbuterol HCl 0.625 mg Q6HR NEB 11/13/24 18:00 11/19/24 12:11 0.625 MG Enoxaparin Sodium 100 mg Q12HR SC 11/13/24 22:00 11/18/24 22:03 100 MG Vancomycin HCl 250 ml @ 200 mls/hr Q16H IV 11/15/24 04:00 11/19/24 03:52 200 MLS/HR Sodium Chloride 10 ml QSHIFT@10,22 IV 11/14/24 22:00 11/19/24 08:52 10 ML Propofol 100 ml @ 2.844 mls/ hr Q24H IV 11/14/24 23:30 11/17/24 20:21 2.844 MLS/HR Metoclopramide HCl 5 mg Q8HR IV 11/15/24 22:00 11/19/24 05:57 5 MG Nystatin 1 applic BID TOP 11/15/24 22:00 11/18/24 22:04 1 APPLIC Acetaminophen 650 mg Q6HP PRN GT 11/15/24 17:15 11/17/24 01:58 650 MG Methylprednisolone Sodium Succinate 20 mg BID IV 11/16/24 22:00 11/19/24 08:51 20 MG Ceftriaxone Sodium 50 ml @ 100 mls/hr DAILY@09 IV 11/17/24 09:00 11/19/24 08:51 100 MLS/HR Purified Water 100 ml Q6HR GT 11/16/24 18:00 11/18/24 11:41 100 ML Insulin Glargine 15 units HS SC 11/17/24 22:00 11/18/24 22:17 15 UNITS Diagnostic Test (Pha) 1 strip Q6HR 11/18/24 12:00 11/19/24 06:02 1 STRIP Insulin Human Regular Q6HR SC 11/18/24 12:00 11/19/24 06:01 6 UNITS Dextrose 50 ml UD PRN IV 11/18/24 09:15 Hydralazine HCl 10 mg Q4HPRN PRN IV 11/18/24 15:30 11/19/24 06:35 10 MG Magnesium Sulfate/ Dextrose 100 ml @ 100 mls/hr Q1HR IV 11/19/24 13:00 11/19/24 14:59 Labetalol HCl 10 mg Q6HP PRN IV 11/19/24 12:30 laboratory and microbiology Laboratory Tests 11/19/24 03:00 Test 11/19/24 03:00 Range/Units Serum Glucose 204 H 74-106 mg/dL Assessment/Plan Covering for Dr. Osorio Impression Acute hypoxemic respiratory failure Pulmonary edema Pneumonia MINOO Patient seen and examined in ICU Events Patient was successfully weaned from mechanical ventilation S/p extubation Placed on ansal oxygen Able to follow simple commands Labs and imaging reviewed ABG reviewed Management Supplemental oxygen Titrate to maintain sats 90% or above Incentive spirometry Aspiration precautions Swallow evaluation Continue antibiotics F/u cultures Bronchodilators Monitor renal function Monitor electrolytes Supplement as needed Physical therapy DVT prophylaxis Critical care time 35 minutes Dietary Evaluation Review Comments: 1. Suggest formula Osmolite 1.2 @ 50 ml/hr (GOAL). Begin at 10 ml/hr, advance by 10 ml Q4 hrs or as tolerated to goal-rate of 50 ml/hr x 24 hrs 2. If BG becomes uncontrolled, may change to Glucerna 1.2 at same goal-rate 3. Provide free water flushes of 30 ml Q6 hrs (120 ml total); adjust PRN 4. Monitor BMP/lytes and replete to WNL/PRN TF Provision: TF at goal to provide 1200 ml total volume, 1440 kcal (+211 kcal via propofol = 1651 kcal), 66 gm pro, 189 gm CHO, 0 gm fiber, 984 ml H20 (meets 100% est. kcal needs, 100% est. pro needs) Expected Outcomes/Goals: Adequate enteral infusion, weight maintenance. Plan discussed with: Patient BYRON BEARDEN MD November 19, 2024 12:38
[2024-11-19] MEDS: MAGNESIUM SULFATE 1GM/100ML 100 ML IV SCH (12:51)
[2024-11-19] MEDS: LABETALOL HCL 20 MG/4 ML VL IV PRN (12:54)
[2024-11-19] MEDS: ENOXAPARIN SOD 80 MG/0.8ML SYRINGE SC SCH (21:51)
[2024-11-20] VITALS (71 sets, daily range): BP systolic 135–183; BP diastolic 55–84; PULSE 74–104; RESP 11–30; TEMP 98–99.1; O2SAT 90–99
[2024-11-20 04:00] LABS: Basophils # (auto) 0 10 ^3/uL (0-0.2); Basophils % (auto) 0.2 % (0.0-2.0); Eosinophils # (auto) 0 10 ^3/uL (0-0.8); Eosinophils % (auto) 0.5 % (0.0-7.0); Hematocrit 37.5 % (36.0-46.0); Hemoglobin 12.8 g/dL (12.2-16.2); Lymphocytes # (auto) 1.1 10 ^3/uL (0.4-5.4); Lymphocytes % (auto) 14.9 % (10.0-50.0); Mean Corpuscular Hgb Conc. 34.1 g/dL (32.0-36.0); Monocytes # (auto) 0.7 10 ^3/uL (0-1.3); Monocytes % (auto) 8.8 % (0.0-12.0); Neutrophils # (auto) 5.7 10 ^3/uL (1.6-8.6); Neutrophils % (auto) 75.6 % (37.0-80.0); Nucleated Red Blood Cells % 0.1 %; Platelet Count (auto) 221 10^3/uL (140-450); Red Blood Cells 4.12 10^6/uL (4.0-5.20); Red Cell Distribution Width 13.9 % (11.8-14.3); White Blood Cell 7.6 10^3/uL (4.4-10.8)
[2024-11-20 04:07] LABS: Calcium 9.4 mg/dL (8.7-10.4); Chloride 101 mmol/L (98-107); Potassium 3.5 mmol/L (3.5-5.1); Sodium 143 mmol/L (136-145)
[2024-11-20 04:08] LABS: Anion Gap 8 (5-15); Carbon Dioxide 34 mmol/L (20-31)
[2024-11-20 04:13] LABS: BUN/Creatinine Ratio 29.3 (10.0-20.0); Blood Urea Nitrogen 17 mg/dL (9-23)
[2024-11-20 04:14] LABS: Glucose 196 mg/dL (74-106); Magnesium 1.9 mg/dL (1.6-2.6)
--- NOTE | 2024-11-20 16:26 | DVHPN2 ---
Reviewed: Care Plan Changes from previous H/P or p: No Changes General: Per HPI Objective Vitals Vital Signs Date Time Temp Pulse Resp B/P (MAP) Pulse Ox O2 Delivery O2 Flow Rate FiO2 11/20/24 16:18 21 92 Nasal Cannula* 2 28 11/20/24 16:00 88 157/75 (102) 11/20/24 11:30 98.0 98.0 Intake/Output Intake and Output 11/20/24 07:00 Intake Total 550 ml Output Total 1300 ml Balance -750 ml Intake Oral 50 ml IV Total 500 ml Output Urine Total 1230 ml Stool Total 70 ml General Appearance: Alert, Cooperative Cardiovascular: Regular rate, Normal S1, Normal S2 Medications Current Medications Medications Dose Ordered Sig/Purvi Route Start Time Stop Time Status Last Admin Dose Admin Vancomycin HCl 200 ml @ 200 mls/hr Q12HR IV 11/12/24 10:00 UNV Vancomycin HCl 0 ml @ 0 mls/hr UD IV 11/12/24 08:45 Ipratropium [place] 0.5 mg Q6HR NEB 11/12/24 18:00 11/20/24 12:22 0.5 MG Pantoprazole Sodium 40 mg DAILY IV 11/13/24 10:00 11/20/24 10:50 40 MG Levalbuterol HCl 0.625 mg Q6HR NEB 11/13/24 18:00 11/20/24 12:22 0.625 MG Vancomycin HCl 250 ml @ 200 mls/hr Q16H IV 11/15/24 04:00 11/20/24 12:52 200 MLS/HR Sodium Chloride 10 ml QSHIFT@10,22 IV 11/14/24 22:00 11/20/24 10:50 10 ML Nystatin 1 applic BID TOP 11/15/24 22:00 11/20/24 10:51 1 APPLIC Acetaminophen 650 mg Q6HP PRN GT 11/15/24 17:15 11/17/24 01:58 650 MG Methylprednisolone Sodium Succinate 20 mg BID IV 11/16/24 22:00 11/20/24 10:50 20 MG Diagnostic Test (Pha) 1 strip Q6HR 11/18/24 12:00 11/20/24 12:00 1 STRIP Insulin Human Regular Q6HR SC 11/18/24 12:00 11/20/24 12:53 2 UNITS Dextrose 50 ml UD PRN IV 11/18/24 09:15 Hydralazine HCl 10 mg Q4HPRN PRN IV 11/18/24 15:30 11/20/24 12:15 10 MG Labetalol HCl 10 mg Q6HP PRN IV 11/19/24 12:30 11/20/24 15:44 10 MG Enoxaparin Sodium 80 mg BID SC 11/19/24 22:00 11/20/24 10:50 80 MG Laboratory Results Laboratory Tests 11/20/24 03:37 Chemistry Test 11/20/24 03:37 Calcium Level 9.4 mg/dL (8.7-10.4) Magnesium Level 1.9 mg/dL (1.6-2.6) Urinalysis Test 11/12/24 12:23 Urine Color Colorless (Yellow) Urine Clarity Clear (Clear) Urine pH 5.0 (5.0-9.0) Urine Specific [place] 1.007 (1.001-1.035) Urine Protein Negative (Negative) Urine Ketones Negative (Negative) Urine Blood 3+ /uL (Negative) H Urine Nitrite Negative (Negative) Urine Bilirubin Negative (Negative) Urine Urobilinogen Normal mg/dL (Negative) Urine Leukocyte Esterase Trace /uL (Negative) Urine RBC 104 /hpf (0 - 4) Urine Microscopic WBC 6 /HPF (0-5) H Urine Squamous Epithelial Cells Few /hpf (<5) Urine Uric Acid Crystals Few /hpf (None Seen) Urine Bacteria None seen /hpf (None Seen) Urine Mucus Few (None Seen) Urine Glucose 2+ mg/dL (Normal) H Microbiology Microbiology Date/Time Source Procedure Growth Status 11/12/24 18:52 Nose MRSA Screen - Final Complete 11/12/24 12:23 Voided Urine Urine Culture - Final Complete 11/12/24 10:12 Sputum Gram Stain - Final Complete 11/12/24 10:12 Respiratory Culture - Final Methicillin Resistant S.aureus Complete 11/12/24 08:49 Blood Blood Culture - Final NO GROWTH AFTER 5 DAYS OF INCUBATION. Complete Labs and/or images reviewed: Labs reviewed by me, Image(s) reviewed by me Assessment/Plan Assessment/Plan Acute metabolic encephalopathy likely due to sepsis Acute on chronic hypoxic respiratory failure COPD, ?exacerbation MINOO on cpap ? 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 following some command but still confused did not pass swallow evaluation at bedside will await for official swallow evaluation Plan discussed with: Patient, Other Date of Service: November 19, 2024 Billing Provider: LOGAN STEPHENSON DO Common Visit Codes: [id number] CARE 30-74 MIN LOGAN STEPHENSON DO November 20, 2024 16:26
--- NOTE | 2024-11-20 18:48 | DVHPNRES ---
Progress Note Date Seen: November 20, 2024 Resident Creating Document: ABRAHAM GARCIA RESIDENT Medical Necessity Reason Pt with a Central, PICC or Fol: Yes The following are medically ne: PICC Line, Stauffer Catheter Subjective Review of Systems Patient was a 69-year-old female with past medical history as described below presented to the with a chief complaint of altered level of consciousness and fevers. According to the daughter, patient was admitted to seen with these about 2-3 weeks ago for chest pain and shortness of breath where she was treated for pneumonia and COPD and was discharged home but she was weak had fever which she was to the hospital about a week ago with a she was treated pneumoniae and ?dka with antibiotics and she was discharged to [facility]. While she was at the [facility] staff noticed to have diffuse up to 102 degree F and she had altered level of consciousness following which EMS were called and patient was brought to the hospital for further evaluation. While in the hospital patient was ordered unable to maintain airway following which she was intubated and put on mechanical ventilation. Patient had fevers in the hospital and was started on empiric antibiotics with the vancomycin and cefepime. Patient was not put on vasopressors any time during the hospitalization and map> 65. Pancultures were done and sputum culture showed growth of MRSA. Patient also has underlying COPD for which she is on Solu-Medrol 20 mg b.i.d.. Echo showed LVEF 75% with likely acute on chronic heart failure with preserved ejection fraction, diagnosed with a right upper arm DVT for which she is on therapeutic dose Lovenox. patient is afebrile for last 48 hours and 24 hours T-max is 99.1. Past medical history: Hypertension, hyperlipidemia, peripheral neuropathy, insulin-dependent type 2 diabetes mellitus, COPD, obstructive sleep apnea on CPAP, GERD, history of carpal tunnel syndrome osteoporosis, ?hFpEF Past surgical history: Colostomy followed diverticulitis Social history: Patient lives has a history of smoking currently currently denies any drug, alcohol, smoking Home medications: Aspirin, Atenolol 25 mg ,atorvastatin 40, Lasix 40 mg, metoprolol tartrate 50 mg b.i.d., losartan 25 mg, insulin Lantus, 1000 mg b.i.d., omeprazole 20 mg, potassium chloride 20 mEq, verniciline tartrate 1 mg . Patient was seen and examined on the bedside. Extubated on 11/18/2024 and currently she is alert and oriented x3. patient is afebrile for last 48 hours and 24 hours T-max is 99.1. Started pureed Diet with thick nectar Right upper arm DVT, on anticoagulation Objective vital signs Vital Sign Date Time Temp Pulse Resp B/P (MAP) Pulse Ox O2 Delivery O2 Flow Rate FiO2 11/20/24 18:38 86 16 98 11/20/24 18:38 Nasal Cannula* 2 28 11/20/24 17:30 145/75 (98) 11/20/24 16:30 98.3 98.3 Total Intake and Output 11/19/24 11/19/24 11/20/24 15:00 23:00 07:00 Intake Total 200 ml 350 ml Output Total 760 ml 540 ml Balance 200 ml -410 ml -540 ml medications Current Medications Medications Dose Ordered Sig/Purvi Route Start Time Stop Time Status Last Admin Dose Admin Vancomycin HCl 200 ml @ 200 mls/hr Q12HR IV 11/12/24 10:00 UNV Vancomycin HCl 0 ml @ 0 mls/hr UD IV 11/12/24 08:45 Ipratropium [place] 0.5 mg Q6HR NEB 11/12/24 18:00 11/20/24 18:38 0.5 MG Pantoprazole Sodium 40 mg DAILY IV 11/13/24 10:00 11/20/24 10:50 40 MG Levalbuterol HCl 0.625 mg Q6HR NEB 11/13/24 18:00 11/20/24 18:38 0.625 MG Vancomycin HCl 250 ml @ 200 mls/hr Q16H IV 11/15/24 04:00 11/20/24 12:52 200 MLS/HR Sodium Chloride 10 ml QSHIFT@10,22 IV 11/14/24 22:00 11/20/24 10:50 10 ML Nystatin 1 applic BID TOP 11/15/24 22:00 11/20/24 10:51 1 APPLIC Acetaminophen 650 mg Q6HP PRN GT 11/15/24 17:15 11/17/24 01:58 650 MG Methylprednisolone Sodium Succinate 20 mg BID IV 11/16/24 22:00 11/20/24 10:50 20 MG Diagnostic Test (Pha) 1 strip Q6HR 11/18/24 12:00 11/20/24 17:55 1 STRIP Insulin Human Regular Q6HR SC 11/18/24 12:00 11/20/24 17:44 3 UNITS Dextrose 50 ml UD PRN IV 11/18/24 09:15 Hydralazine HCl 10 mg Q4HPRN PRN IV 11/18/24 15:30 11/20/24 12:15 10 MG Labetalol HCl 10 mg Q6HP PRN IV 11/19/24 12:30 11/20/24 15:44 10 MG Enoxaparin Sodium 80 mg BID SC 11/19/24 22:00 11/20/24 10:50 80 MG Losartan Potassium 50 mg DAILY PO 11/21/24 10:00 Examination Physical examination: General Appearance: Alert, Oriented X3, Cooperative, mild distress and on 2L nasal canula HEENT: Atraumatic, PERRLA, EOMI, Mucous membrane moist/pink Respiratory: Clear to auscultation, Normal air movement Cardiovascular: Regular rate, Normal S1, Normal S2, No murmurs, no chest wall tenderness Abdominal: Normal bowel sounds, Soft, No tenderness, No hepatospenomegaly, No masses Extremities: No clubbing, No cyanosis, No edema, Normal pulses, No tenderness/swelling Skin: Unstageable ulcer in the right buttock, No rashes, No significant lesion Neuro: Normal speech, Strength at 5/5 X4 ext, Normal tone, Sensation intact, grossly intact cranial nerves Psych/Mental Status: Mental status NL, Mood NL laboratory and microbiology Laboratory Tests 11/20/24 03:37 Test 11/20/24 03:37 Range/Units Serum Glucose 196 H 74-106 mg/dL Microbiology Date/Time Source Procedure Growth Status 11/12/24 18:52 Nose MRSA Screen - Final Complete 11/12/24 12:23 Voided Urine Urine Culture - Final Complete 11/12/24 10:12 Sputum Gram Stain - Final Complete 11/12/24 10:12 Respiratory Culture - Final Methicillin Resistant S.aureus Complete 11/12/24 08:49 Blood Blood Culture - Final NO GROWTH AFTER 5 DAYS OF INCUBATION. Complete Labs and/or images reviewed: Labs reviewed by me, Image(s) reviewed by me Problem List/Assessment/Plan Problem List/Assessment/Plan Assessment and Plan: Neurology Acute metabolic encephalopathy likely due to sepsis resolved - currently patient is alert and oriented x3 Respiratory Acute on chronic hypoxic respiratory failure Possible COPD,exacerbation MINOO on cpap Pneumonia due to MRSA Bilateral pulmonary edema - ABG compensated - chest x-ray shows bilateral interstitial opacities - DuoNebs q.6 hours - IV vancomycin as per pharmacy ( started on 11/16/23)/ previously on ceftriaxone - sputum cultures growing MRSA - solumedrol 20mg bid - CPAP at nighttime Cardiovascular Acute on chronic heart failure with preserved ejection fraction Right upper arm DVT Hypertensive heart disease - ECHO 10/2024 shows hyperdynamic systolic function. LVEF was around 76% - BNP normal - Right upper arm venous Doppler showed no flow in axillary and the subclavian vein - Enoxaparin therapeutic dose, discontinued aspirin - Losartan 50 mg p.o. daily - IV hydralazine 10 mg q.6 p.r.n. 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 Full code Critical care time spent excluding procedures: 46 minutes Plan discussed with Dr. Mccormick Plan discussed with: Patient, Other (Plan discussed with family, RN) My Orders My Orders Orders - ABRAHAM GARCIA RESIDENT Procedure Category Date Status Time * Swallow Request ST 11/20/24 Transmitted 10:11 Losartan Tablet PHA 11/21/24 In Process (Cozaar Tablet) 10:00 Dietary Evaluation Review Comments: 1. Suggest formula Osmolite 1.2 @ 50 ml/hr (GOAL). Begin at 10 ml/hr, advance by 10 ml Q4 hrs or as tolerated to goal-rate of 50 ml/hr x 24 hrs 2. If BG becomes uncontrolled, may change to Glucerna 1.2 at same goal-rate 3. Provide free water flushes of 30 ml Q6 hrs (120 ml total); adjust PRN 4. Monitor BMP/lytes and replete to WNL/PRN TF Provision: TF at goal to provide 1200 ml total volume, 1440 kcal (+211 kcal via propofol = 1651 kcal), 66 gm pro, 189 gm CHO, 0 gm fiber, 984 ml H20 (meets 100% est. kcal needs, 100% est. pro needs) Expected Outcomes/Goals: Adequate enteral infusion, weight maintenance. Date of Service: November 20, 2024 Billing Provider: KOBY MCCORMICK MD Common Visit Codes: [id number] CARE 30-74 MIN ABRAHAM GARCIA RESIDENT November 20, 2024 18:48 KOBY MCCORMICK MD November 21, 2024 15:17
[2024-11-20] MEDS: LOSARTAN POTASSIUM 50 MG TAB PO ONE (19:00)
[2024-11-21] VITALS (89 sets, daily range): BP systolic 129–178; BP diastolic 52–106; PULSE 70–106; RESP 12–33; TEMP 97.1–98.7; O2SAT 94–100
[2024-11-21 03:09] LABS: Basophils # (auto) 0 10 ^3/uL (0-0.2); Basophils % (auto) 0.3 % (0.0-2.0); Eosinophils # (auto) 0 10 ^3/uL (0-0.8); Eosinophils % (auto) 0.5 % (0.0-7.0); Hematocrit 35.3 % (36.0-46.0); Hemoglobin 12.2 g/dL (12.2-16.2); Lymphocytes # (auto) 1.4 10 ^3/uL (0.4-5.4); Mean Corpuscular Hemoglobin 31.1 pg (28.0-32.0); Mean Corpuscular Hgb Conc. 34.5 g/dL (32.0-36.0); Mean Corpuscular Volume 90.2 fL (80.0-100.0); Monocytes # (auto) 0.6 10 ^3/uL (0-1.3); Monocytes % (auto) 7.4 % (0.0-12.0); Neutrophils # (auto) 5.5 10 ^3/uL (1.6-8.6); Neutrophils % (auto) 73.8 % (37.0-80.0); Nucleated Red Blood Cells % 0.1 %; Platelet Count (auto) 219 10^3/uL (140-450); Red Blood Cells 3.91 10^6/uL (4.0-5.20); Red Cell Distribution Width 13.8 % (11.8-14.3); White Blood Cell 7.5 10^3/uL (4.4-10.8)
[2024-11-21 03:20] LABS: Anion Gap 5 (5-15); Chloride 104 mmol/L (98-107); Sodium 142 mmol/L (136-145)
[2024-11-21 03:22] LABS: Calcium 8.5 mg/dL (8.7-10.4); Carbon Dioxide 33 mmol/L (20-31); Potassium 3.3 mmol/L (3.5-5.1)
[2024-11-21 03:26] LABS: BUN/Creatinine Ratio 28.6 (10.0-20.0); Blood Urea Nitrogen 16 mg/dL (9-23)
[2024-11-21 03:36] LABS: Glucose 169 mg/dL (74-106)
--- NOTE | 2024-11-21 06:10 | DVH ---
EXAM: XR Chest, 1 View CLINICAL INDICATION: On mechanical ventilation TECHNIQUE: Frontal view of the chest. COMPARISON: XY CHEST XRAY 1 VIEW on DOS: 11/18/24, XY CHEST PORTABLE on DOS: 11/17/24, XY CHEST XRAY 1 VIEW on DOS: 11/17/24, XY CHEST XRAY 1 VIEW on DOS: 11/16/24, XY CHEST PORTABLE on DOS: 11/15/24 FINDINGS: LUNGS AND PLEURAL SPACES: See below. HEART: Cardiomegaly with pulmonary congestion and edema. Superimposed pneumonia cannot be excluded. MEDIASTINUM: Unremarkable. Normal mediastinal contour. BONES/JOINTS: Unremarkable. No acute fracture. TUBES, LINES AND DEVICES: Left internal jugular central venous catheter tip in the superior vena ca va. OTHER FINDINGS: . . IMPRESSION: Cardiomegaly with pulmonary congestion and edema. Superimposed pneumonia cannot be excluded.
[2024-11-21] MEDS: LOSARTAN POTASSIUM 50 MG TAB PO SCH (08:43)
[2024-11-21] MEDS: POTASSIUM CHL 20MEQ/50ML 50 ML IV SCH (08:45)
[2024-11-21] MEDS: amLODIPine BESYLATE 5 MG TAB PO ONE (11:54)
--- NOTE | 2024-11-21 16:15 | DVHPNRES ---
Progress Note Date Seen: November 21, 2024 Resident Creating Document: ABRAHAM GARCIA RESIDENT Medical Necessity Reason Pt with a Central, PICC or Fol: Yes The following are medically ne: PICC Line, Stauffer Catheter Subjective Review of Systems Patient was seen and examined on the bedside. Extubated on 11/18/2024 and currently she is alert and oriented x3. patient is afebrile for last 48 hours and 24 hours T-max is 98.4. Patient is on pureed diet PT evaluated the patient and recommended SNF for rehab Right upper arm DVT, on anticoagulation Objective vital signs Vital Sign Date Time Temp Pulse Resp B/P (MAP) Pulse Ox O2 Delivery O2 Flow Rate FiO2 11/21/24 16:00 84 22 159/73 (101) 100 11/21/24 15:00 97.1 97.1 11/21/24 14:00 Nasal Cannula* 3 32 Total Intake and Output 11/20/24 11/20/24 11/21/24 15:00 23:00 07:00 Intake Total 700 ml Output Total 570 ml 580 ml Balance -570 ml 120 ml medications Current Medications Medications Dose Ordered Sig/Purvi Route Start Time Stop Time Status Last Admin Dose Admin Vancomycin HCl 200 ml @ 200 mls/hr Q12HR IV 11/12/24 10:00 UNV Vancomycin HCl 0 ml @ 0 mls/hr UD IV 11/12/24 08:45 Ipratropium [place] 0.5 mg Q6HR NEB 11/12/24 18:00 11/21/24 11:34 0.5 MG Pantoprazole Sodium 40 mg DAILY IV 11/13/24 10:00 11/21/24 08:42 40 MG Levalbuterol HCl 0.625 mg Q6HR NEB 11/13/24 18:00 11/21/24 11:34 0.625 MG Sodium Chloride 10 ml QSHIFT@10,22 IV 11/14/24 22:00 11/21/24 08:43 10 ML Nystatin 1 applic BID TOP 11/15/24 22:00 11/21/24 10:27 1 APPLIC Acetaminophen 650 mg Q6HP PRN GT 11/15/24 17:15 11/17/24 01:58 650 MG Diagnostic Test (Pha) 1 strip Q6HR 11/18/24 12:00 11/21/24 11:51 1 STRIP Insulin Human Regular Q6HR SC 11/18/24 12:00 11/21/24 11:53 2 UNITS Dextrose 50 ml UD PRN IV 11/18/24 09:15 Hydralazine HCl 10 mg Q4HPRN PRN IV 11/18/24 15:30 11/21/24 00:56 10 MG Labetalol HCl 10 mg Q6HP PRN IV 11/19/24 12:30 11/20/24 15:44 10 MG Losartan Potassium 50 mg DAILY PO 11/21/24 10:00 11/21/24 08:43 50 MG Amlodipine Besylate 5 mg DAILY PO 11/22/24 10:00 Vancomycin HCl 250 ml @ 200 mls/hr Q18H IV 11/21/24 22:00 Bumetanide 1 mg DAILY IV 11/22/24 10:00 Apixaban 5 mg BID PO 11/21/24 22:00 UNV Prednisone 40 mg DAILY PO 11/22/24 10:00 Examination Physical examination: General Appearance: Alert, Oriented X3, Cooperative, mild distress and on 2L nasal canula HEENT: Atraumatic, PERRLA, EOMI, Mucous membrane moist/pink Respiratory: Clear to auscultation, Normal air movement Cardiovascular: Regular rate, Normal S1, Normal S2, No murmurs, no chest wall tenderness Abdominal: Normal bowel sounds, Soft, No tenderness, No hepatospenomegaly, No masses Extremities: No clubbing, No cyanosis, No edema, Normal pulses, No tenderness/swelling Skin: Unstageable ulcer in the right buttock, No rashes, No significant lesion Neuro: Normal speech, Strength at 5/5 X4 ext, Normal tone, Sensation intact, grossly intact cranial nerves Psych/Mental Status: Mental status NL, Mood NL laboratory and microbiology Laboratory Tests 11/21/24 12:55 11/21/24 02:50 Test 11/21/24 02:50 Range/Units Serum Glucose 169 H 74-106 mg/dL Microbiology Date/Time Source Procedure Growth Status 11/12/24 18:52 Nose MRSA Screen - Final Complete 11/12/24 12:23 Voided Urine Urine Culture - Final Complete 11/12/24 10:12 Sputum Gram Stain - Final Complete 11/12/24 10:12 Respiratory Culture - Final Methicillin Resistant S.aureus Complete 11/12/24 08:49 Blood Blood Culture - Final NO GROWTH AFTER 5 DAYS OF INCUBATION. Complete Labs and/or images reviewed: Labs reviewed by me, Image(s) reviewed by me Problem List/Assessment/Plan Problem List/Assessment/Plan Assessment and Plan: Neurology Acute metabolic encephalopathy likely due to sepsis resolved - currently patient is alert and oriented x3 Respiratory Acute on chronic hypoxic respiratory failure Possible COPD,exacerbation MINOO on cpap ?Pneumonia due to MRSA Bilateral pulmonary edema - ABG compensated - chest x-ray shows bilateral interstitial opacities - DuoNebs q.6 hours - IV vancomycin as per pharmacy ( started on 11/16/23)/ previously on ceftriaxone - sputum cultures growing MRSA - Prednisone 40 mg daily - CPAP at nighttime Cardiovascular Acute on chronic heart failure with preserved ejection fraction Right upper arm DVT Hypertensive heart disease - ECHO 10/2024 shows hyperdynamic systolic function. LVEF was around 76% - BNP normal - Right upper arm venous Doppler showed no flow in axillary and the subclavian vein - Eloquis 5 mg bid - Losartan 50 mg p.o. daily - IV hydralazine 10 mg q.6 p.r.n. 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 Full code Critical care time spent excluding procedures: 44 minutes Plan discussed with Dr. Mccormick Plan discussed with: Patient, Other My Orders My Orders Orders - ABRAHAM GARCIA RESIDENT Procedure Category Date Status Time Losartan Tablet PHA 11/21/24 In Process (Cozaar Tablet) 10:00 Chest Portable XY 11/21/24 Resulted 04:00 Amlodipine Tablet PHA 11/22/24 In Process (Norvasc Tablet) 10:00 * Cold Roll Packer Sheet Iron CONS 11/21/24 Transmitted Consult Transfer Orders XFER 11/21/24 Transmitted 15:43 Bumetanide Injection PHA 11/22/24 In Process (Bumex Injection) 10:00 Apixaban (Eliquis) PHA 11/21/24 Logged 22:00 Prednisone Tablet PHA 11/22/24 In Process 10:00 Dietary Evaluation Review Comments: 1. Suggest formula Osmolite 1.2 @ 50 ml/hr (GOAL). Begin at 10 ml/hr, advance by 10 ml Q4 hrs or as tolerated to goal-rate of 50 ml/hr x 24 hrs 2. If BG becomes uncontrolled, may change to Glucerna 1.2 at same goal-rate 3. Provide free water flushes of 30 ml Q6 hrs (120 ml total); adjust PRN 4. Monitor BMP/lytes and replete to WNL/PRN TF Provision: TF at goal to provide 1200 ml total volume, 1440 kcal (+211 kcal via propofol = 1651 kcal), 66 gm pro, 189 gm CHO, 0 gm fiber, 984 ml H20 (meets 100% est. kcal needs, 100% est. pro needs) Expected Outcomes/Goals: Adequate enteral infusion, weight maintenance. Date of Service: November 21, 2024 Billing Provider: KOBY MCCORMICK MD Common Visit Codes: [id number] CARE 30-74 MIN ABRAHAM GARCIA RESIDENT November 21, 2024 16:15 KOBY MCCORMICK MD November 22, 2024 16:23
[2024-11-21] MEDS: BUMETANIDE 1mg/4ml VIAL (0.25mg/ml) IV ONE (16:22)
[2024-11-21] MEDS: APIXABAN 5 MG TAB PO SCH (21:46)
[2024-11-21] MEDS: VANCOMYCIN 1.25GM/250ML 250 ML IV SCH (21:46)
[2024-11-22] VITALS (42 sets, daily range): BP systolic 130–163; BP diastolic 56–87; PULSE 73–115; RESP 13–27; TEMP 97.8–98.7; O2SAT 87–100
[2024-11-22 05:06] LABS: Basophils # (auto) 0 10 ^3/uL (0-0.2); Basophils % (auto) 0.4 % (0.0-2.0); Eosinophils # (auto) 0.4 10 ^3/uL (0-0.8); Eosinophils % (auto) 4.9 % (0.0-7.0); Hematocrit 36.1 % (36.0-46.0); Hemoglobin 12.5 g/dL (12.2-16.2); Lymphocytes # (auto) 2.4 10 ^3/uL (0.4-5.4); Lymphocytes % (auto) 28.6 % (10.0-50.0); Mean Corpuscular Hemoglobin 31.2 pg (28.0-32.0); Mean Corpuscular Hgb Conc. 34.5 g/dL (32.0-36.0); Mean Corpuscular Volume 90.3 fL (80.0-100.0); Monocytes # (auto) 0.8 10 ^3/uL (0-1.3); Monocytes % (auto) 9.8 % (0.0-12.0); Neutrophils # (auto) 4.8 10 ^3/uL (1.6-8.6); Neutrophils % (auto) 56.3 % (37.0-80.0); Nucleated Red Blood Cells % 0.1 %; Platelet Count (auto) 211 10^3/uL (140-450); Red Cell Distribution Width 13.8 % (11.8-14.3); White Blood Cell 8.5 10^3/uL (4.4-10.8)
[2024-11-22 05:13] LABS: Chloride 99 mmol/L (98-107); Sodium 140 mmol/L (136-145)
[2024-11-22 05:14] LABS: Anion Gap 8 (5-15); Calcium 9.5 mg/dL (8.7-10.4)
[2024-11-22 05:15] LABS: Carbon Dioxide 33 mmol/L (20-31)
[2024-11-22 05:19] LABS: BUN/Creatinine Ratio 23.3 (10.0-20.0); Blood Urea Nitrogen 14 mg/dL (9-23)
[2024-11-22 05:39] LABS: Glucose 144 mg/dL (74-106)
[2024-11-22] MEDS ORDERED: POTASSIUM CHL 20MEQ/100ML 100 ML IV SCH (06:30)
[2024-11-22] MEDS ORDERED: POTASSIUM CHL 20MEQ/100ML 100 ML IV ONE (06:45)
[2024-11-22] MEDS: PANTOPRAZOLE 40 MG TAB PO ONE (06:48)
[2024-11-22] MEDS: POTASSIUM CHL 20 Meq TABLET PO ONE (06:48)
[2024-11-22] MEDS ORDERED: POTASSIUM CHL 20MEQ/50ML 50 ML IV SCH (07:00)
[2024-11-22] MEDS: POTASSIUM CHL 20MEQ/50ML 50 ML IV ONE (07:25)
[2024-11-22] MEDS: BUMETANIDE 1mg/4ml VIAL (0.25mg/ml) IV SCH (09:49)
[2024-11-22] MEDS: predniSONE 20 MG TAB PO SCH (09:50)
[2024-11-22] MEDS: amLODIPine BESYLATE 5 MG TAB PO SCH (09:52)
--- NOTE | 2024-11-22 17:54 | DVHDSRES ---
Discharge Summary Date of Admission Resident Creating Document: ABRAHAM GARCIA RESIDENT Nov 12, 2024 at 12:48 Date of Discharge: November 22, 2024 Admitting Diagnosis Acute metabolic encephalopathy likely due to sepsis Wounds: Small Unstageable black eschar on the right buttock Labs/Diagnostic Data: Laboratory Results Test 11/22/24 11:51 11/22/24 04:41 11/21/24 02:50 11/20/24 03:37 POC Glucose 210 mg/dl (70-106) White Blood Count 8.5 10^3/uL (4.4-10.8) Red Blood Count 4.00 10^6/uL (4.0-5.20) Hemoglobin 12.5 g/dL (12.2-16.2) Hematocrit 36.1 % (36.0-46.0) Mean Corpuscular Volume 90.3 fL (80.0-100.0) Mean Corpuscular Hemoglobin 31.2 pg (28.0-32.0) Mean Corpuscular Hemoglobin Concent 34.5 g/dL (32.0-36.0) Red Cell Distribution Width 13.8 % (11.8-14.3) Platelet Count 211 10^3/uL (140-450) Mean Platelet Volume 8.3 fL (6.9-10.8) Neutrophils (%) (Auto) 56.3 % (37.0-80.0) Lymphocytes (%) (Auto) 28.6 % (10.0-50.0) Monocytes (%) (Auto) 9.8 % (0.0-12.0) Eosinophils (%) (Auto) 4.9 % (0.0-7.0) Basophils (%) (Auto) 0.4 % (0.0-2.0) Neutrophils # (Auto) 4.8 10 ^3/uL (1.6-8.6) Lymphocytes # (Auto) 2.4 10 ^3/uL (0.4-5.4) Monocytes # (Auto) 0.8 10 ^3/uL (0-1.3) Eosinophils # (Auto) 0.4 10 ^3/uL (0-0.8) Basophils # (Auto) 0 10 ^3/uL (0-0.2) Nucleated Red Blood Cells 0.1 % Sodium Level 140 mmol/L (136-145) Potassium Level 3.0 mmol/L (3.5-5.1) Chloride Level 99 mmol/L (98-107) Carbon Dioxide Level 33 mmol/L (20-31) Anion Gap 8 (5-15) Blood Urea Nitrogen 14 mg/dL (9-23) Creatinine 0.60 mg/dL (0.550-1.02) Glomerular Filtration Rate Calc 98 mL/min (>90) BUN/Creatinine Ratio 23.3 (10.0-20.0) Serum Glucose 144 mg/dL (74-106) Calcium Level 9.5 mg/dL (8.7-10.4) Vancomycin Level Trough 19.1 ug/mL (5-10) Magnesium Level 1.9 mg/dL (1.6-2.6) Test 11/18/24 11:15 11/18/24 07:05 11/16/24 06:46 11/15/24 18:17 Blood Gas Specimen Type Arterial Blood Gas Sample Site Left radial Blood Gas Patient Temperature 37.0 Arterial Blood Date Drawn [id number] Arterial Blood pH 7.475 (7.350-7.450) Arterial Blood Partial Pressure CO2 45.8 mmHg (32.0-45.0) Arterial Blood Partial Pressure O2 86.9 mmHg (83.0-108.0) Arterial Blood HCO3 33.0 mmol/L (21.0-28.0) Arterial Blood Oxygen Saturation 96.4 % (94.0-98.0) Arterial Blood Base Excess 8.3 mmol/L (-2.0-3.0) Arterial Blood Oxyhemoglobin 95.7 % (94.0-98.0) Arterial Blood Carboxyhemoglobin 0.4 % (0.5-1.5) Arterial Blood Methemoglobin 0.3 % (0.0-1.5) James Test Modified Blood Gas Total Hemoglobin 12.30 g/dL (12.0-16.0) Blood Gas Modality Vent - cpap Blood Gas Spontaneous Rate 26 FiO2 % 30.0 Blood Gas Spontaneous Tidal Volume 440 Blood Gas Pressure Support 8 Blood Gas PEEP or CPAP 5.0 Blood Gas Set Respiration Rate 14.0 Blood Gas Tidal Volume 500.0 Blood Gas Inspiratory Pressure 28.0 Bl Gas Inspiratory/Expiratory Ratio 1:4.1 Specimen Drawn By ki quesada Phosphorus Level 3.2 mg/dL (2.4-5.1) Test 11/14/24 09:36 11/14/24 03:05 11/13/24 03:20 11/12/24 12:23 Free Thyroxine (T4) Calculated 1.07 ng/dL (0.89-1.76) Total Triiodothyronine (TT3) 0.43 ng/mL (0.60-1.81) Thyroid Stimulating Hormone (TSH) 0.62 uIU/mL (0.55-4.78) Total Bilirubin 0.3 mg/dL (0.2-1.0) Aspartate Amino Transferase (AST) 17 U/L (13-40) Alanine Aminotransferase (ALT) 17 U/L (7-40) Alkaline Phosphatase 50 U/L (46-116) B-Type Natriuretic Peptide 104.45 pg/mL (0-100) Total Protein 5.4 g/dL (5.7-8.2) Albumin 2.7 g/dL (3.2-4.8) Random Vancomycin Level 6.1 ug/mL (5-10) Urine Color Colorless (Yellow) Urine Clarity Clear (Clear) Urine pH 5.0 (5.0-9.0) Urine Specific [place]man 1.007 (1.001-1.035) Urine Protein Negative (Negative) Urine Ketones Negative (Negative) Urine Blood 3+ /uL (Negative) Urine Nitrite Negative (Negative) Urine Bilirubin Negative (Negative) Urine Urobilinogen Normal mg/dL (Negative) Urine Leukocyte Esterase Trace /uL (Negative) Urine RBC 104 /hpf (0 - 4) Urine Microscopic WBC 6 /HPF (0-5) Urine Squamous Epithelial Cells Few /hpf (<5) Urine Uric Acid Crystals Few /hpf (None Seen) Urine Bacteria None seen /hpf (None Seen) Urine Mucus Few (None Seen) Urine Glucose 2+ mg/dL (Normal) Test 11/12/24 11:53 11/12/24 10:05 11/12/24 09:14 11/12/24 08:49 Troponin I High Sensitivity 47 ng/L (</=34) Lactic Acid Level 2.3 mmol/L (0.4-2.0) Ammonia 19 umol/L (11-32) Prothrombin Time 13.5 sec (9.3-11.8) Prothrombin Time INR 1.31 (0.9-1.15) Activated Partial Thromboplast Time 26.7 SEC (24.5-34.5) Differential Total Cells Counted 100.0 (100) Neutrophils % (Manual) 74 (37.0-80.0) Band Neutrophils % (Manual) 4 Lymphocytes % (Manual) 15 (10.0-50.0) Monocytes % (Manual) 7 (0-12) Eosinophils % (Manual) 0 (0-7) Basophils % (Manual) 0 (0.0-2.0) Metamyelocytes % (manual) 0 Myelocytes % (Manual) 0 Promyelocytes % (Manual) 0 Blast Cells % (Manual) 0 Reactive Lymphocytes 0 Platelet Estimate Adequate Serum Osmolality 300 mOsm/kg (278-298) Beta-Hydroxybutyric Acid 2.945 mmol/L (< 0.4) Test 11/12/24 08:46 Blood Gas Liter Flow 6.00 Other Laboratory Tests 11/22/24 04:41 Brief Hx & Hospital Course: Patient was a 69-year-old female with past medical history as described below presented to the with a chief complaint of altered level of consciousness and fevers. According to the daughter, patient was admitted to seen with these about 2-3 weeks ago for chest pain and shortness of breath where she was treated for pneumonia and COPD and was discharged home but she was weak had fever which she was to the hospital about a week ago with a she was treated pneumoniae and ?dka with antibiotics and she was discharged to [facility]. While she was at the group home facility staff noticed to have diffuse up to 102 degree F and she had altered level of consciousness following which EMS were called and patient was brought to the hospital for further evaluation. While in the hospital patient was ordered unable to maintain airway following which she was intubated and put on mechanical ventilation. Hospital course: Patient was intubated on 11/13/24 for acute metabolic encephalopathy likely due to sepsis. She was treated for sepsis with acute on chronic hypoxic respiratory failure due to MRSA pneumonia, acute on chronic COPD, acute exacerbation of chronic diastolic heart failure. Sputum culture was positive for MRSA and patient was treated with IV vancomycin as per pharmacy and IV cefepime 1 gm Q 8 hours, IV methylprednisolone, IV Lasix , IV bumetanide IV pantoprazole resumed home medications and blood sugar was controlled with insulin sliding scale and Lantus 10 units at HS. Right upper arm venous Doppler showed no flow in axillary and the subclinical vein and diagnosed with right upper extremity DVT and treated with enoxaparin 80 mg b.i.d. After hemodynamic stability CPAP trial was started and the patient was extubated on . After extubation resolved postextubation confusion and patient became alert and oriented x3. Slowly started pureed diet and patient was able to tolerate p.o. diet. PT evaluated the patient and recommended SNF for physical therapy to gain the strength. Started p.o. medication with Protonix 40 mg p.o. daily, amlodipine 5 mg daily, prednisolone 40 mg daily, losartan 50 mg daily. Yesterday talked to the patient's daughter about the discharge planning and all questions were answered. Patient is being discharged to SNF. Physical examination: General Appearance: Alert, Oriented X3, Cooperative, mild distress and on 2L nasal canula HEENT: Atraumatic, PERRLA, EOMI, Mucous membrane moist/pink Respiratory: Clear to auscultation, Normal air movement Cardiovascular: Regular rate, Normal S1, Normal S2, No murmurs, no chest wall tenderness Abdominal: Normal bowel sounds, Soft, No tenderness, No hepatospenomegaly, No masses Extremities: No clubbing, No cyanosis, No edema, Normal pulses, No tenderness/swelling Skin: Unstageable ulcer in the right buttock, No rashes, No significant lesion Neuro: Normal speech, Strength at 5/5 X4 ext, Normal tone, Sensation intact, grossly intact cranial nerves Psych/Mental Status: Mental status NL, Mood NL time spent in discharge planning was 41 mins Consults/Reason for consult No consultation was done Operations or Procedures Procedure: CT CT AB PEL WO CON-NO ORAL OR IV 11/12/2024 01:15 PM Indication: sepsis Comparison Study: CT scan dated 11/07/2024 FINDINGS: Lower Chest: Bilateral lower lobes pulmonary opacities are seen. No pleural effusion. The heart is normal in size. Coronary artery calcification noted. Hepatobiliary: Mild hepatomegaly and hepatic steatosis. Slight irregularity of the liver contour concerning for cirrhosis. Calcified gallstones are seen in gallbladder lumen. No intrahepatic or extrahepatic ductal dilatation.. Spleen: Unremarkable. Pancreas: Unremarkable. Adrenal Glands: Unremarkable. tract: The kidneys are normal in size bilaterally without hydronephrosis . Stable subcentimeter Nonobstructing right renal stone. Bladder is decompressed with a Stauffer catheter and cannot be adequately assessed. GI tract: The stomach is grossly normal in appearance. No evidence of small bowel obstruction. The large bowel is unremarkable. The appendix is normal. Lymphatics: No mesenteric, retroperitoneal or periportal lymphadenopathy. Vasculature: Aorta is normal in caliber. Scattered calcified plaques are noted. Pelvic Organs: Unremarkable Bones/soft tissues: No acute abnormality. Supraumbilical diastasis recti. Stable small fat containing midline epigastric wall hernia measuring 2.8 cm in transverse the neck, bowel containing supraumbilical and left lower quadrant spigelian hernia measuring 7.4 cm 5 cm in transverse at the neck respectively. Other: None. IMPRESSION: 1. Stable interstitial and ground-glass opacities in the bilateral lower lung zones with interval development of bibasilar dependent opacities may represent pneumonia or atelectasis. 2. No acute abnormality seen in the abdomen or pelvis. No drainable fluid collection is noted.Stable 3. Abdominal wall hernias with no evidence of incarceration or strangulation. 4. Stable subcentimeter nonobstructive right renal stone without hydronephrosis or hydroureter. A Stauffer catheter is seen in the bladder. XY CHEST PORTABLE, HISTORY: fever COMPARISON: XY CHEST PORTABLE on DOS: 11/05/24 XY CHEST PORTABLE on DOS: 11/05/24 TECHNICAL DATA: 1 view of the chest was obtained. FINDINGS: Lines and tubes: None Cardiomediastinal silhouette: Enlarged Pulmonary vasculature: Prominent Lung expansion: normal Lung airspace: Prominent Lung interstitium: normal Pleura: normal Pneumothorax: no Bones: Unremarkable Other: no IMPRESSION: Cardiomegaly with pulmonary vascular congestion and possible pulmonary edema. CT HEAD WITHOUT CONTRAST INDICATION: altered : 69 old Female altered EXAM DATE: 11/12/2024 01:13 PM COMPARISON: None All CT scans at this medical facility are performed using dose modulation techniques as appropriate to a performed exam including the following: Automated exposure control was utilized; adjustment of the MA and/or KV according to patient size; and use of iterative reconstruction technique. FINDINGS: There is sulcal and ventricular prominence. The brainshows normal morphology and gross-white matter differentiation, without intracranial hemorrhage, extra-axial fluid collection, mass effect or acute large vessel infarct. The ventricles are normal in size. The basal cisterns are patent. The skull and visible facial bones are intact. The paranasal sinuses, mastoid air cells and middle ear cavities are well-aerated. The soft tissues of the scalp are unremarkable. IMPRESSION: No acute intracranial abnormality. Right Upper Extremity Venous Duplex Clinical History: SWELLING IN EXTREMITY Findings: The internal jugular vein demonstrates appropriate compressibility and waveform variability. The subclavian vein no flow no compressibility The visualized portion of the brachiocephalic vein is patent on color Doppler evaluation without intraluminal thrombus and demonstrates waveform variability. The axillary vein demonstrates no flow no compressibility The brachial veins demonstrate appropriate compressibility and patency on Doppler evaluation. The basilic vein demonstrates flow no compressibility The cephalic vein demonstrates appropriate compressibility and patency on Doppler evaluation. Impression: 1. Positive venous thrombus identified in the RIGHT upper extremity vessels evaluated above. 2. Thrombus noted in the right upper extremity basilic vein. This was confirmed by Tania VACA. 3. If clinical concern/symptoms persist or worsen, short-interval follow-up study is suggested. Condition at Discharge: Guarded Final Diagnosis/Problems List Acute metabolic encephalopathy likely due to sepsis resolved Sepsis likely due to MRSA pneumonia with acute organ dysfunction without Septic shock MRSA pneumonia Acute on chronic hypoxic respiratory failure Possible COPD,exacerbation MINOO on cpap Bilateral pulmonary edema Acute on chronic heart failure with preserved ejection fraction Right upper arm DVT Hypertensive heart disease Insulin-dependent type 2 diabetes mellitus with peripheral neuropathy, HbA1C 7.8% Morbid obesity, 38.6 kg/m2 History of diverticulitis status post left lower quadrant colostomy Cholelithiasis Mild hepatomegaly and hepatic steatosis Discharge Disposition: Residential Facility Discharge Instruct/Medications Diet: Consistent carbohydrate, Cardiac 2g Na,low cholest Activity: No Restrictions, As Tolerated Follow Up/Referral: Follow up with PCP as per SNF protocol Medications: As per EMR Discharge Statement: "Patient was advised to return to the ER or call 911 if any headaches, dizziness, shortness of breath, chest pain, abdominal pain, bleeding, fevers, or worsening of medical condition. Patient was counseled about treatment plan, medications, possible side effects, patient�verbalized understanding. All questions were answered to the best of my ability. This discharge took greater then 30 minutes in planning, reviewing documentation, counseling the patient, and discussing with other team members." ASSESSMENT ASSESSMENT Assessment Acute metabolic encephalopathy likely due to sepsis resolved Sepsis likely due to MRSA pneumonia with acute organ dysfunction without septic shock MRSA pneumonia Acute on chronic hypoxic respiratory failure Possible COPD,exacerbation MINOO on cpap Bilateral pulmonary edema Acute on chronic heart failure with preserved ejection fraction Right upper arm DVT Hypertensive heart disease Insulin-dependent type 2 diabetes mellitus with peripheral neuropathy, HbA1C 7.8% Morbid obesity, 38.6 kg/m2 History of diverticulitis status post left lower quadrant colostomy Cholelithiasis Mild hepatomegaly and hepatic steatosis Date of Service: November 22, 2024 Billing Provider: KOBY MCCORMICK MD Common Visit Codes: 21631-XGV/OBS DISCH DAY >30min ABRAHAM GARCIA RESIDENT November 22, 2024 17:54 KOBY MCCORMICK MD November 23, 2024 12:22
[2024-11-22] MEDS: MELATONIN 5 MG TAB PO SCH (23:01)
[2024-11-23] VITALS (15 sets, daily range): BP systolic 111–141; BP diastolic 56–73; PULSE 72–116; RESP 16–20; TEMP 97.7–98.3; O2SAT 91–100
[2024-11-23] MEDS: PANTOPRAZOLE 40 MG TAB PO SCH (06:01)
[2024-11-23 10:35] LABS: Basophils # (auto) 0 10 ^3/uL (0-0.2); Basophils % (auto) 0.3 % (0.0-2.0); Eosinophils # (auto) 0.4 10 ^3/uL (0-0.8); Hematocrit 45.1 % (36.0-46.0); Hemoglobin 15.4 g/dL (12.2-16.2); Lymphocytes # (auto) 2.8 10 ^3/uL (0.4-5.4); Lymphocytes % (auto) 21.5 % (10.0-50.0); Mean Corpuscular Hgb Conc. 34.1 g/dL (32.0-36.0); Mean Corpuscular Volume 90.8 fL (80.0-100.0); Monocytes % (auto) 7.5 % (0.0-12.0); Neutrophils # (auto) 8.9 10 ^3/uL (1.6-8.6); Neutrophils % (auto) 67.7 % (37.0-80.0); Nucleated Red Blood Cells % 0.1 %; Platelet Count (auto) 317 10^3/uL (140-450); Red Blood Cells 4.97 10^6/uL (4.0-5.20); Red Cell Distribution Width 14.1 % (11.8-14.3); White Blood Cell 13.2 10^3/uL (4.4-10.8)
[2024-11-23 11:45] LABS: Sodium 138 mmol/L (136-145)
[2024-11-23 11:46] LABS: Anion Gap 9 (5-15); Calcium 10.2 mg/dL (8.7-10.4)
[2024-11-23 11:50] LABS: Carbon Dioxide 32 mmol/L (20-31); Chloride 97 mmol/L (98-107); Potassium 3.3 mmol/L (3.5-5.1)
[2024-11-23 11:51] LABS: BUN/Creatinine Ratio 20.8 (10.0-20.0); Blood Urea Nitrogen 15 mg/dL (9-23)
[2024-11-23 11:56] LABS: Glucose 160 mg/dL (74-106)
[2024-11-23 18:40] LABS: Urine Bacteria FEW /hpf (None Seen); Urine Blood Negative /uL (Negative); Urine Clarity Turbid (Clear); Urine Color Light-Yellow (Yellow); Urine Mucus FEW (None Seen); Urine Protein, UAD Negative (Negative); Urine Specific Gravity 1.014 (1.001-1.035); Urine Squamous Epithelial Cell FEW /hpf (<5); Urine Urobilinogen Normal (Negative); Urine WBC 5 /HPF (0-5)
[2024-11-23] MEDS: POTASSIUM CHL 20 Meq TABLET PO ONE (18:48)
--- NOTE | 2024-11-23 21:26 | DVHPNRES ---
Progress Note Date Seen: November 23, 2024 Resident Creating Document: ABRAHAM GARCIA RESIDENT Medical Necessity Reason Pt with a Central, PICC or Fol: Yes The following are medically ne: PICC Line, Stauffer Catheter Subjective Review of Systems Patient was seen and examined on the bedside. Extubated on 11/18/2024 and currently she is alert and oriented x3. patient is afebrile for last 48 hours and 24 hours T-max is 98.4. Patient is on pureed diet PT evaluated the patient and recommended SNF for rehab Right upper arm DVT, on anticoagulation Objective vital signs Vital Sign Date Time Temp Pulse Resp B/P (MAP) Pulse Ox O2 Delivery O2 Flow Rate FiO2 11/23/24 21:00 98.1 85 18 131/56 (81) 97 98.1 11/23/24 18:35 Nasal Cannula* 2 28 Total Intake and Output 11/22/24 11/22/24 11/23/24 15:00 23:00 07:00 Intake Total 130 ml 250 ml 750 ml Output Total 400 ml Balance 130 ml 250 ml 350 ml medications Current Medications Medications Dose Ordered Sig/Purvi Route Start Time Stop Time Status Last Admin Dose Admin Vancomycin HCl 200 ml @ 200 mls/hr Q12HR IV 11/12/24 10:00 UNV Vancomycin HCl 0 ml @ 0 mls/hr UD IV 11/12/24 08:45 Ipratropium [place] 0.5 mg Q6HR NEB 11/12/24 18:00 11/23/24 18:35 0.5 MG Levalbuterol HCl 0.625 mg Q6HR NEB 11/13/24 18:00 11/23/24 18:35 0.625 MG Sodium Chloride 10 ml QSHIFT@10,22 IV 11/14/24 22:00 11/23/24 10:21 10 ML Nystatin 1 applic BID TOP 11/15/24 22:00 11/23/24 10:23 1 APPLIC Acetaminophen 650 mg Q6HP PRN GT 11/15/24 17:15 11/17/24 01:58 650 MG Diagnostic Test (Pha) 1 strip Q6HR 11/18/24 12:00 11/23/24 18:00 1 STRIP Insulin Human Regular Q6HR SC 11/18/24 12:00 11/23/24 18:50 12 UNITS Dextrose 50 ml UD PRN IV 11/18/24 09:15 Hydralazine HCl 10 mg Q4HPRN PRN IV 11/18/24 15:30 11/21/24 00:56 10 MG Labetalol HCl 10 mg Q6HP PRN IV 11/19/24 12:30 11/20/24 15:44 10 MG Losartan Potassium 50 mg DAILY PO 11/21/24 10:00 11/23/24 10:22 50 MG Amlodipine Besylate 5 mg DAILY PO 11/22/24 10:00 11/23/24 10:22 5 MG Bumetanide 1 mg DAILY IV 11/22/24 10:00 11/23/24 10:21 1 MG Apixaban 5 mg BID PO 11/21/24 22:00 11/23/24 10:23 5 MG Pantoprazole Sodium 40 mg DAILY@0600 PO 11/23/24 06:00 11/23/24 06:01 40 MG Melatonin 5 mg HS PO 11/22/24 22:00 11/22/24 23:01 5 MG Prednisone 30 mg DAILY PO 11/24/24 10:00 Vancomycin HCl 250 ml @ 200 mls/hr DAILY IV 11/24/24 10:00 Examination Physical examination: General Appearance: Alert, Oriented X3, Cooperative, mild distress and on 2L nasal canula HEENT: Atraumatic, PERRLA, EOMI, Mucous membrane moist/pink Respiratory: Clear to auscultation, Normal air movement Cardiovascular: Regular rate, Normal S1, Normal S2, No murmurs, no chest wall tenderness Abdominal: Normal bowel sounds, Soft, No tenderness, No hepatospenomegaly, No masses Extremities: No clubbing, No cyanosis, No edema, Normal pulses, No tenderness/swelling Skin: Unstageable ulcer in the right buttock, No rashes, No significant lesion Neuro: Normal speech, Strength at 5/5 X4 ext, Normal tone, Sensation intact, grossly intact cranial nerves Psych/Mental Status: Mental status NL, Mood NL laboratory and microbiology Laboratory Tests 11/23/24 09:25 Test 11/23/24 09:25 Range/Units Serum Glucose 160 H 74-106 mg/dL Microbiology Date/Time Source Procedure Growth Status 11/12/24 18:52 Nose MRSA Screen - Final Complete 11/12/24 12:23 Voided Urine Urine Culture - Final Complete 11/12/24 10:12 Sputum Gram Stain - Final Complete 11/12/24 10:12 Respiratory Culture - Final Methicillin Resistant S.aureus Complete 11/12/24 08:49 Blood Blood Culture - Final NO GROWTH AFTER 5 DAYS OF INCUBATION. Complete Labs and/or images reviewed: Labs reviewed by me, Image(s) reviewed by me Problem List/Assessment/Plan Problem List/Assessment/Plan Assessment and Plan: Neurology Acute metabolic encephalopathy likely due to sepsis resolved - currently patient is alert and oriented x3 Respiratory Acute on chronic hypoxic respiratory failure Possible COPD,exacerbation MINOO on cpap ?Pneumonia due to MRSA Bilateral pulmonary edema - ABG compensated - chest x-ray shows bilateral interstitial opacities - DuoNebs q.6 hours - IV vancomycin as per pharmacy ( started on 11/16/23)/ previously on ceftriaxone - sputum cultures growing MRSA - Prednisone 40 mg daily - CPAP at nighttime Cardiovascular Acute on chronic heart failure with preserved ejection fraction Right upper arm DVT Hypertensive heart disease - ECHO 10/2024 shows hyperdynamic systolic function. LVEF was around 76% - BNP normal - Right upper arm venous Doppler showed no flow in axillary and the subclavian vein - Eloquis 5 mg bid - Losartan 50 mg p.o. daily - IV hydralazine 10 mg q.6 p.r.n. 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 Full code Plan discussed with Dr. Mccormick Plan discussed with: Patient, Other My Orders My Orders Orders - ABRAHAM GARCIA RESIDENT Procedure Category Date Status Time Discontinue Tele KAVON 11/23/24 In Process 18:01 Transfer Orders XFER 11/23/24 Transmitted 18:01 Dietary Evaluation Review Comments: 1. Suggest formula Osmolite 1.2 @ 50 ml/hr (GOAL). Begin at 10 ml/hr, advance by 10 ml Q4 hrs or as tolerated to goal-rate of 50 ml/hr x 24 hrs 2. If BG becomes uncontrolled, may change to Glucerna 1.2 at same goal-rate 3. Provide free water flushes of 30 ml Q6 hrs (120 ml total); adjust PRN 4. Monitor BMP/lytes and replete to WNL/PRN TF Provision: TF at goal to provide 1200 ml total volume, 1440 kcal (+211 kcal via propofol = 1651 kcal), 66 gm pro, 189 gm CHO, 0 gm fiber, 984 ml H20 (meets 100% est. kcal needs, 100% est. pro needs) Expected Outcomes/Goals: Adequate enteral infusion, weight maintenance. Date of Service: November 23, 2024 Billing Provider: KOBY MCCORMICK MD Common Visit Codes: 30757-[id number] INP/OBS CARE(HIGH) Secondary Visit Codes: [id number] CARE PLAN 30 MINUTES ABRAHAM GARCIA RESIDENT November 23, 2024 21:26 KOBY MCCORMICK MD November 25, 2024 22:20
[2024-11-24] VITALS (14 sets, daily range): BP systolic 100–124; BP diastolic 48–70; PULSE 70–97; RESP 16–21; TEMP 97.5–98.6; O2SAT 92–100
[2024-11-24 05:20] LABS: Basophils # (auto) 0 10 ^3/uL (0-0.2); Basophils % (auto) 0.2 % (0.0-2.0); Eosinophils # (auto) 0.4 10 ^3/uL (0-0.8); Hematocrit 40.6 % (36.0-46.0); Lymphocytes # (auto) 3.5 10 ^3/uL (0.4-5.4); Lymphocytes % (auto) 27.1 % (10.0-50.0); Mean Corpuscular Hgb Conc. 34.5 g/dL (32.0-36.0); Monocytes # (auto) 0.9 10 ^3/uL (0-1.3); Monocytes % (auto) 6.9 % (0.0-12.0); Neutrophils # (auto) 8.1 10 ^3/uL (1.6-8.6); Neutrophils % (auto) 62.8 % (37.0-80.0); Nucleated Red Blood Cells % 0.1 %; Platelet Count (auto) 248 10^3/uL (140-450); White Blood Cell 12.9 10^3/uL (4.4-10.8)
[2024-11-24 05:35] LABS: Anion Gap 10 (5-15); Sodium 140 mmol/L (136-145)
[2024-11-24 05:37] LABS: Calcium 8.9 mg/dL (8.7-10.4)
[2024-11-24 05:42] LABS: BUN/Creatinine Ratio 21.5 (10.0-20.0); Blood Urea Nitrogen 14 mg/dL (9-23)
[2024-11-24 05:52] LABS: Carbon Dioxide 33 mmol/L (20-31); Chloride 97 mmol/L (98-107); Glucose 128 mg/dL (74-106); Potassium 3.2 mmol/L (3.5-5.1)
[2024-11-24] MEDS: POTASSIUM CHL 20 Meq TABLET PO ONE (06:50)
[2024-11-24] MEDS: predniSONE 20 MG TAB PO SCH (11:02)
[2024-11-24] MEDS: VANCOMYCIN 1.25GM/250ML 250 ML IV SCH (11:04)
--- NOTE | 2024-11-24 11:37 | DVH ---
EXAM: XY CHEST PORTABLE Indication: COPD Technique: Single frontal view of the chest was obtained Comparison: XY CHEST PORTABLE on DOS: 11/21/24, XY CHEST XRAY 1 VIEW on DOS: 11/18/24, XY CHEST PORTABLE on DOS: 11/17/24, XY CHEST XRAY 1 VIEW on DOS: 11/17/24, XY CHEST XRAY 1 VIEW on DOS: 11/16/24 FINDINGS: Lines and Tubes: Left PICC tip projects over the superior vena cava. Lungs: No focal consolidation. Vascular congestion. Pleura: No effusion. No pneumothorax. Cardiomediastinal contours: Cardiomegaly. Bones: No acute osseous abnormality. IMPRESSION: Cardiomegaly with pulmonary vascular congestion. Left PICC tip projects over the superior vena cava.
--- NOTE | 2024-11-24 15:07 | DVHPNRES ---
Progress Note Date Seen: November 24, 2024 Resident Creating Document: ABRAHAM GARCIA RESIDENT Medical Necessity Reason Pt with a Central, PICC or Fol: Yes The following are medically ne: PICC Line, Stauffer Catheter Subjective Review of Systems Patient was a 69-year-old female with past medical history as described below presented to the with a chief complaint of altered level of consciousness and fevers. According to the daughter, patient was admitted to seen with these about 2-3 weeks ago for chest pain and shortness of breath where she was treated for pneumonia and COPD and was discharged home but she was weak had fever which she was to the hospital about a week ago with a she was treated pneumoniae and ?dka with antibiotics and she was discharged to [facility]. While she was at the [facility] staff noticed to have diffuse up to 102 degree F and she had altered level of consciousness following which EMS were called and patient was brought to the hospital for further evaluation. While in the hospital patient was ordered unable to maintain airway following which she was intubated and put on mechanical ventilation. Past medical history: Hypertension, hyperlipidemia, peripheral neuropathy, insulin-dependent type 2 diabetes mellitus, COPD, obstructive sleep apnea on CPAP, GERD, history of carpal tunnel syndrome osteoporosis, ?hFpEF Past surgical history: Colostomy followed diverticulitis Social history: Patient lives has a history of smoking currently currently denies any drug, alcohol, smoking Home medications: Aspirin, Atenolol 25 mg ,atorvastatin 40, Lasix 40 mg, metoprolol tartrate 50 mg b.i.d., losartan 25 mg, insulin Lantus, 1000 mg b.i.d., omeprazole 20 mg, potassium chloride 20 mEq, verniciline tartrate 1 mg . Patient was seen and examined on the bedside. Extubated on 11/18/2024 and currently she is alert and oriented x3. patient is afebrile for last 48 hours and 24 hours T-max is 98.4. Patient is on consistent carbohydrate diet PT evaluated the patient and recommended SNF for rehab Right upper arm DVT, on anticoagulation Objective vital signs Vital Sign Date Time Temp Pulse Resp B/P (MAP) Pulse Ox O2 Delivery O2 Flow Rate FiO2 11/24/24 12:34 98.1 75 20 103/48 (66) 98 98.1 11/24/24 11:15 Nasal Cannula* 2 28 Total Intake and Output 11/23/24 11/23/24 11/24/24 15:00 23:00 07:00 Intake Total 800 ml 1200 ml Output Total 1300 ml 600 ml Balance -500 ml 600 ml medications Current Medications Medications Dose Ordered Sig/Purvi Route Start Time Stop Time Status Last Admin Dose Admin Vancomycin HCl 200 ml @ 200 mls/hr Q12HR IV 11/12/24 10:00 UNV Vancomycin HCl 0 ml @ 0 mls/hr UD IV 11/12/24 08:45 Ipratropium Grandin 0.5 mg Q6HR NEB 11/12/24 18:00 11/24/24 11:15 0.5 MG Levalbuterol HCl 0.625 mg Q6HR NEB 11/13/24 18:00 11/24/24 11:15 0.625 MG Sodium Chloride 10 ml QSHIFT@10, IV 11/14/24 22:00 11/24/24 10:00 10 ML Nystatin 1 applic BID TOP 11/15/24 22:00 11/24/24 10:00 1 APPLIC Acetaminophen 650 mg Q6HP PRN GT 11/15/24 17:15 11/17/24 01:58 650 MG Diagnostic Test (Pha) 1 strip Q6HR 11/18/24 12:00 11/24/24 12:04 1 STRIP Insulin Human Regular Q6HR SC 11/18/24 12:00 11/24/24 06:12 2 UNITS Dextrose 50 ml UD PRN IV 11/18/24 09:15 Hydralazine HCl 10 mg Q4HPRN PRN IV 11/18/24 15:30 11/21/24 00:56 10 MG Labetalol HCl 10 mg Q6HP PRN IV 11/19/24 12:30 11/20/24 15:44 10 MG Losartan Potassium 50 mg DAILY PO 11/21/24 10:00 11/24/24 11:02 50 MG Amlodipine Besylate 5 mg DAILY PO 11/22/24 10:00 11/24/24 11:03 5 MG Apixaban 5 mg BID PO 11/21/24 22:00 11/24/24 11:03 5 MG Pantoprazole Sodium 40 mg DAILY@0600 PO 11/23/24 06:00 11/24/24 05:35 40 MG Melatonin 5 mg HS PO 11/22/24 22:00 11/23/24 23:06 5 MG Prednisone 30 mg DAILY PO 11/24/24 10:00 11/24/24 11:02 30 MG Vancomycin HCl 250 ml @ 200 mls/hr DAILY IV 11/24/24 10:00 11/24/24 11:04 200 MLS/HR Bumetanide 1 mg DAILY PO 11/25/24 10:00 Examination Physical examination: General Appearance: Alert, Oriented X3, Cooperative, mild distress and on 2L nasal canula HEENT: Atraumatic, PERRLA, EOMI, Mucous membrane moist/pink Respiratory: Clear to auscultation, Normal air movement Cardiovascular: Regular rate, Normal S1, Normal S2, No murmurs, no chest wall tenderness Abdominal: Normal bowel sounds, Soft, No tenderness, No hepatospenomegaly, No masses Extremities: No clubbing, No cyanosis, No edema, Normal pulses, No tenderness/swelling Skin: Unstageable ulcer in the right buttock, No rashes, No significant lesion Neuro: Normal speech, Strength at 5/5 X4 ext, Normal tone, Sensation intact, grossly intact cranial nerves Psych/Mental Status: Mental status NL, Mood NL laboratory and microbiology Laboratory Tests 11/24/24 04:59 Test 11/24/24 04:59 Range/Units Serum Glucose 128 H 74-106 mg/dL Microbiology Date/Time Source Procedure Growth Status 11/12/24 18:52 Nose MRSA Screen - Final Complete 11/12/24 12:23 Voided Urine Urine Culture - Final Complete 11/12/24 10:12 Sputum Gram Stain - Final Complete 11/12/24 10:12 Respiratory Culture - Final Methicillin Resistant S.aureus Complete 11/12/24 08:49 Blood Blood Culture - Final NO GROWTH AFTER 5 DAYS OF INCUBATION. Complete Labs and/or images reviewed: Labs reviewed by me, Image(s) reviewed by me Problem List/Assessment/Plan Problem List/Assessment/Plan Assessment and Plan: Neurology Acute metabolic encephalopathy likely due to sepsis resolved - currently patient is alert and oriented x3 Respiratory Acute on chronic hypoxic respiratory failure Possible COPD,exacerbation MINOO on cpap ?Pneumonia due to MRSA Bilateral pulmonary edema - ABG compensated - chest x-ray shows bilateral interstitial opacities - DuoNebs q.6 hours - IV vancomycin as per pharmacy ( started on 11/16/23)/ previously on ceftriaxone - sputum cultures growing MRSA - Prednisone 40 mg daily - CPAP at nighttime Cardiovascular Acute on chronic heart failure with preserved ejection fraction Right upper arm DVT Hypertensive heart disease - ECHO 10/2024 shows hyperdynamic systolic function. LVEF was around 76% - BNP normal - Right upper arm venous Doppler showed no flow in axillary and the subclavian vein - Eloquis 5 mg bid - Losartan 50 mg p.o. daily - IV hydralazine 10 mg q.6 p.r.n. 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 Full code Critical care time spent excluding procedures: 45 minutes Plan discussed with Dr. Mandujano Plan discussed with: Patient, Daughter, Other My Orders My Orders Orders - ABRAHAM GARCIA RESIDENT Procedure Category Date Status Time Discontinue Tele KAVON 11/23/24 In Process 18:01 Transfer Orders XFER 11/23/24 Transmitted 18:01 Bumetanide Tablet PHA 11/25/24 In Process (Bumex Tablet) 10:00 Chest Portable XY 11/24/24 Resulted 10:53 Consistent DIET 11/24/24 Transmitted Carb(Ccho)Diabetes Lunch Dietary Evaluation Review Comments: 1. Suggest formula Osmolite 1.2 @ 50 ml/hr (GOAL). Begin at 10 ml/hr, advance by 10 ml Q4 hrs or as tolerated to goal-rate of 50 ml/hr x 24 hrs 2. If BG becomes uncontrolled, may change to Glucerna 1.2 at same goal-rate 3. Provide free water flushes of 30 ml Q6 hrs (120 ml total); adjust PRN 4. Monitor BMP/lytes and replete to WNL/PRN TF Provision: TF at goal to provide 1200 ml total volume, 1440 kcal (+211 kcal via propofol = 1651 kcal), 66 gm pro, 189 gm CHO, 0 gm fiber, 984 ml H20 (meets 100% est. kcal needs, 100% est. pro needs) Expected Outcomes/Goals: Adequate enteral infusion, weight maintenance. ABRAHAM GARCIA RESIDENT November 24, 2024 15:07
--- NOTE | 2024-11-24 23:13 | DVHINCON2 ---
Date of service: November 24, [address] Lujan Reason for Consultation Confusion History of Present Illness Ms. Ledbetter is a 69 years old right-handed female with a history of hypertension, diabetes, dyslipidemia, congestive heart failure, kidney stone, COPD, GERD, obesity, sleep apnea on CPAP, migraine headache, she was brought from her SNF to the [facility] on 11/12/24 with a chief complaint of ALOC. At this time, she was alert, oriented x3, good social skills, she was able to provide a history She was discharged from the [facility] on 11/08/2024 for sepsis, pneumonia, COPD Apparently, the patient was noticed to be mentally altered in her SNF, and she was brought to the [facility], in the ER, her T-max was 102� F, he was found to have pneumonia, acute on chronic respiratory failure that required intubation (11/12/2024), acidosis, sepsis. With appropriate treatment, the patient was has had improvement, and she was extubated on 11/18/2024 In the hospital, the patient was found to have DVT in the right arm She was sleep apnea, she was on CPAP at home, but she does not remember her CPAP dosage For about 1.5 years, the patient was has symmetric tremors in both upper extremities, no matter in the arms are resting or in the action, she reports a good sense of smell, and she was no constipation, per my observation, the patient was has normal voice, blinking and facial expression. She reports the tremors affect her daily life, especially when she drinks liquid food. She was seen by a specialist but she does not remember the diagnosis, a medication was recommended but declined by herself Blood culture, 11/12/2024: Negative WBC/HB/PLT/MCV, 11/24/2024: 12.9/14/2 48/90 BUN/CR, 11/21/2024: 16/0.56, 11/24/2024: 96/21.5 Lactic acid, 11/12/24: 2.3, 2.3 Beta hydroxide butyric acid, 11/12/24: 2.945 Liver function tests, 11/12/2024: Unremarkable TSH, 11/14/2024: 0.62 FT4, 11/14/2024: 1.07 Extremity venous study, 11/13/2024: 1. Positive venous thrombus identified in the RIGHT upper extremity vessels evaluated above. 2. Thrombus noted in the right upper extremity basilic vein. This was confirmed by Tania VACA. 3. If clinical concern/symptoms persist or worsen, short-interval follow-up study is s uggested. Chest x-ray, 11/12/2024: 1. Satisfactory positioning of the endotracheal tube. 2. No other significant interval change Chest x-ray, 11/24/2024: Cardiomegaly with pulmonary vascular congestion. Left PICC tip projects over the superior vena cava. CT head, 11/12/2024: No acute intracranial abnormality Past Medical History Hypertension, diabetes, dyslipidemia, congestive heart failure, kidney stone, COPD, GERD, obesity, sleep apnea, migraine Past Surgical History Hysterectomy, colostomy Family History: Chronic obstructive pulmonary disease G8 MOTHER FH: CHF (congestive heart failure) G8 FATHER FH: atrial fibrillation G8 FATHER Family History COPD, congestive heart failure, dementia. No tremors in the family Social History She was a tobacco smoker, she denies a history of alcohol or recreational substance abuse Allergies: Coded Allergies: Piperacillin (Verified Allergy, Intermediate, 11/12/24) hives Tazobactam (Verified Allergy, Intermediate, 11/12/24) hives Home Meds Reported Medications Omeprazole (Omeprazole Dr) 20 Mg Cap, 1 CP PO DAILY for 90 Days, #90 11/07/24 Atenolol (Atenolol) 25 Mg Tab, 1 TAB PO DAILY for 90 Days, #90 11/07/24 Magnesium Oxide (Magnesium Oxide) 400 Mg Tab, 1 TAB PO BID for 30 Days, #60 11/07/24 Gabapentin (Gabapentin) 100 Mg Cap, 1 CAP PO DAILY for 90 Days, #90 11/07/24 Glyburide (Glyburide) 5 Mg Tab, 1 TAB PO BID for 90 Days, #180 11/07/24 Carisoprodol (Carisoprodol) 350 Mg Tab, 1 TAB PO BID PRN for 15 Days, #30 11/07/24 Varenicline Tartrate (Varenicline Tartrate) 1 Mg Tab, 1 TAB PO DAILY for 56 Days, #56 11/07/24 Evolocumab (Repatha Sureclick) 140 Mg/Ml Inj, 1 ML SC Q2WEEK for 28 Days, #2 11/07/24 Tirzepatide (Mounjaro) 12.5 Mg/0.5 Ml Inj, 12.5 MG SC QWEEKLY for 28 Days, #2 11/07/24 Ibuprofen Micronized (Ibuprofen) 800 Mg Tab, 1 TAB PO DAILY for 30 Days, #30 11/07/24 Insulin Glargine (Basaglar Kwikpen) 100 Unit/Ml Inj, 30 UNITS SC HS for 30 Days, #9 11/07/24 Potassium Chloride (Potassium Chloride ER) 20 Meq Tab, 1 TAB PO DAILY for 30 Days, #30 11/07/24 Cyanocobalamin (Vitamin B-12) 1,000 Mcg Tab, 1 TAB PO DAILY for 30 Days, #30 11/07/24 Aspirin (Aspirin Low Dose) 81 Mg Chw, 1 TAB PO DAILY for 30 Days, #30 11/07/24 Metoprolol Tartrate (LOPRESSOR TABLET) 50 Mg Tb, 1 TAB PO BID for 30 Days, #60 11/07/24 Metformin Hydrochloride (Metformin Hcl) 1,000 Mg Tab, 1 TAB PO BID for 30 Days, #60 11/07/24 Atorvastatin Calcium (ATORVASTATIN CALCIUM) 40 Mg Tab, 1 TAB PO DAILY 11/05/24 Losartan Potassium (Losartan Potassium) 25 Mg Tab, 1 TAB PO DAILY 11/05/24 Furosemide (Furosemide) 40 Mg Tab, 40 MG OR QAM 12/24/11 Aspirin (Asa) 81 Mg Ch, 81 MG GT QAM 12/24/11 Ibuprofen (Ibuprofen) 800 Mg Tab, 800 MG OR HS 12/24/11 Hydrocodone-Acetaminophen (Vicodin) 1 Tab Tab, 1 TAB OR Q4HP 01/31/10 Lorazepam (Ativan) 2 Mg Tab, 2 MG OR PRN 01/31/10 Cyclobenzaprine Hcl (Flexeril) 10 Mg Tb, 10 MG GT PRN 01/31/10 Budesonide-Formoterol Fumarate (Symbicort) 1 Aer Aer, 1 AER IN PRN 01/31/10 Atenolol (Atenolol) 25 Mg Tab, 25 MG OR BID 01/31/10 Current Medications Current Medications Medications (Trade) Dose Ordered Sig/Purvi Route PRN Reason Start Time Stop Time Status Last Admin Prednisone 30 mg DAILY PO 11/24/24 10:00 11/24/24 11:02 Vancomycin HCl 250 ml @ 200 mls/hr DAILY IV 11/24/24 10:00 11/24/24 11:04 Bumetanide (Bumex Tablet) 1 mg DAILY PO 11/25/24 10:00 Review of Systems As above, the other systems are negative Vital Signs Vital Signs Date Time Temp Pulse Resp B/P (MAP) Pulse Ox O2 Delivery O2 Flow Rate FiO2 11/24/24 20:00 Nasal Cannula* 2 28 11/24/24 19:54 77 18 100/53 99 11/24/24 16:15 98.6 98.6 Physical Exam GENERAL EXAM: General: the patient is well developed and nourished. No acute distress. HEENT: Normocephalic, neck is supple, no carotid bruits. No mass. RESPIRATORY: Normal respiratory effort with symmetrical lung expansion. Lungs clear to auscultation. CARDIOVASCULAR: Regular rate and rhythm with no murmurs. S1, S2. ABDOMEN: Soft, nontender, normal bowel sound NEUROLOGICAL: MENTAL STATUS: Awake and alert. Oriented to person, place, time and general circumstances. Able to give personal history. SPEECH, LANGUAGE, HIGHER CORTICAL FUNCTION: no aphasia or dysathria. CRANIAL NERVES: #2: Intact visual nguyễn to confrontation. The optic discs were sharp #3,4,6: Pupils are equal, round and reactive. EOMs full and conjugate. No nystagmus. #5: Facial sensation intact in all three divisions bilaterally. Mandibular str ength intact. #7: Facial muscles symmetrical and strength intact. #8: Hearing grossly normal to voice. #9,10: Uvula and soft palate rise in the midline. Swallow and voice are normal. #11: Trapezius and sternomastoid strength intact bilaterally. #12: Tongue midline. No fasciculations or atrophy. SENSATION: Sensation to touch and pinprick is normal. MOTOR: Normal tone in the upper and lower extremity. Normal muscle bulk. No fasciculations. Both resting and dynamic tremors noticed in both hands. Muscle strength of the major groups in the upper extremities is 5/5. He moves both legs REFLEXES: Deep tendon reflexes normal and symmetrical. No pathological reflexes. CEREBELLAR/COORDINATION: Finger to nose and heel to isabel are normal bilaterally. GAIT/STATION: deferred. Labs/Diagnostic Data Labs Test 11/24/24 17:58 11/24/24 04:59 11/23/24 18:10 11/23/24 09:25 Range/Units POC Glucose 307 H 70-106 mg/dl White Blood Count 12.9 H 4.4-10.8 10^3/uL Red Blood Count 4.50 4.0-5.20 10^6/uL Hemoglobin 14.0 12.2-16.2 g/dL Hematocrit 40.6 36.0-46.0 % Mean Corpuscular Volume 90.0 80.0-100.0 fL Mean Corpuscular Hemoglobin 31.0 28.0-32.0 pg Mean Corpuscular Hemoglobin Concent 34.5 32.0-36.0 g/dL Red Cell Distribution Width 14.0 11.8-14.3 % Platelet Count 248 140-450 10^3/uL Mean Platelet Volume 8.2 6.9-10.8 fL Neutrophils (%) (Auto) 62.8 37.0-80.0 % Lymphocytes (%) (Auto) 27.1 10.0-50.0 % Monocytes (%) (Auto) 6.9 0.0-12.0 % Eosinophils (%) (Auto) 3.0 0.0-7.0 % Basophils (%) (Auto) 0.2 0.0-2.0 % Neutrophils # (Auto) 8.1 1.6-8.6 10 ^3/uL Lymphocytes # (Auto) 3.5 0.4-5.4 10 ^3/uL Monocytes # (Auto) 0.9 0-1.3 10 ^3/uL Eosinophils # (Auto) 0.4 0-0.8 10 ^3/uL Basophils # (Auto) 0 0-0.2 10 ^3/uL Nucleated Red Blood Cells 0.1 % Sodium Level 140 136-145 mmol/L Potassium Level 3.2 L 3.5-5.1 mmol/L Chloride Level 97 L 98-107 mmol/L Carbon Dioxide Level 33 H 20-31 mmol/L Anion Gap 10 5-15 Blood Urea Nitrogen 14 9-23 mg/dL Creatinine 0.65 0.550-1.02 mg/dL Glomerular Filtration Rate Calc 96 >90 mL/min BUN/Creatinine Ratio 21.5 H 10.0-20.0 Serum Glucose 128 H 74-106 mg/dL Calcium Level 8.9 8.7-10.4 mg/dL Urine Color Light-yellow Yellow Urine Clarity Turbid H Clear Urine pH 6.0 5.0-9.0 Urine Specific [place] 1.014 1.001-1.035 Urine Protein Negative Negative Urine Ketones Negative Negative Urine Blood Negative Negative /uL Urine Nitrite Negative Negative Urine Bilirubin Negative Negative Urine Urobilinogen Normal Negative mg/dL Urine Leukocyte Esterase Negative Negative /uL Urine RBC 4 0 - 4 /hpf Urine Microscopic WBC 5 0-5 /HPF Urine Squamous Epithelial Cells Few <5 /hpf Urine Bacteria Few H None Seen /hpf Urine Mucus Few None Seen Urine Glucose 4+ H Normal mg/dL Vancomycin Level Trough 19.9 H 5-10 ug/mL Test 11/20/24 03:37 11/18/24 11:15 11/18/24 07:05 11/16/24 06:46 Range/Units Magnesium Level 1.9 1.6-2.6 mg/dL Blood Gas Specimen Type Arterial Blood Gas Sample Site Left radial Blood Gas Patient Temperature 37.0 Arterial Blood Date Drawn [id number] Arterial Blood pH 7.475 H 7.350-7.450 Arterial Blood Partial Pressure CO2 45.8 H 32.0-45.0 mmHg Arterial Blood Partial Pressure O2 86.9 83.0-108.0 mmHg Arterial Blood HCO3 33.0 H 21.0-28.0 mmol/L Arterial Blood Oxygen Saturation 96.4 94.0-98.0 % Arterial Blood Base Excess 8.3 H -2.0-3.0 mmol/L Arterial Blood Oxyhemoglobin 95.7 94.0-98.0 % Arterial Blood Carboxyhemoglobin 0.4 L 0.5-1.5 % Arterial Blood Methemoglobin 0.3 0.0-1.5 % James Test Modified Blood Gas Total Hemoglobin 12.30 12.0-16.0 g/dL Blood Gas Modality Vent - cpap Blood Gas Spontaneous Rate 26 FiO2 % 30.0 Blood Gas Spontaneous Tidal Volume 440 Blood Gas Pressure Support 8 Blood Gas PEEP or CPAP 5.0 Blood Gas Set Respiration Rate 14.0 Blood Gas Tidal Volume 500.0 Blood Gas Inspiratory Pressure 28.0 Bl Gas Inspiratory/Expiratory Ratio 1:4.1 Specimen Drawn By ki quesada Test 11/15/24 18:17 11/14/24 09:36 11/14/24 03:05 11/13/24 03:20 Range/Units Phosphorus Level 3.2 2.4-5.1 mg/dL Free Thyroxine (T4) Calculated 1.07 0.89-1.76 ng/dL Total Triiodothyronine (TT3) 0.43 L 0.60-1.81 ng/mL Thyroid Stimulating Hormone (TSH) 0.62 0.55-4.78 uIU/mL Total Bilirubin 0.3 0.2-1.0 mg/dL Aspartate Amino Transferase (AST) 17 13-40 U/L Alanine Aminotransferase (ALT) 17 7-40 U/L Alkaline Phosphatase 50 46-116 U/L B-Type Natriuretic Peptide 104.45 0-100 pg/mL Total Protein 5.4 L 5.7-8.2 g/dL Albumin 2.7 L 3.2-4.8 g/dL Random Vancomycin Level 6.1 5-10 ug/mL Test 11/12/24 12:23 11/12/24 11:53 11/12/24 10:05 11/12/24 09:14 Range/Units Urine Uric Acid Crystals Few None Seen /hpf Troponin I High Sensitivity 47 *H </=34 ng/L Lactic Acid Level 2.3 *H 0.4-2.0 mmol/L Ammonia 19 11-32 umol/L Prothrombin Time 13.5 H 9.3-11.8 sec Prothrombin Time INR 1.31 H 0.9-1.15 Activated Partial Thromboplast Time 26.7 24.5-34.5 SEC Test 11/12/24 08:49 11/12/24 08:46 Range/Units Differential Total Cells Counted 100.0 100 Neutrophils % (Manual) 74 37.0-80.0 Band Neutrophils % (Manual) 4 Lymphocytes % (Manual) 15 10.0-50.0 Monocytes % (Manual) 7 0-12 Eosinophils % (Manual) 0 0-7 Basophils % (Manual) 0 0.0-2.0 Metamyelocytes % (manual) 0 Myelocytes % (Manual) 0 Promyelocytes % (Manual) 0 Blast Cells % (Manual) 0 Reactive Lymphocytes 0 Platelet Estimate Adequate Serum Osmolality 300 H 278-298 mOsm/kg Beta-Hydroxybutyric Acid 2.945 H < 0.4 mmol/L Blood Gas Liter Flow 6.00 Microbiology Date/Time Source Procedure Growth Status 11/12/24 18:52 Nose MRSA Screen - Final Complete 11/12/24 12:23 Voided Urine Urine Culture - Final Complete 11/12/24 10:12 Sputum Gram Stain - Final Complete 11/12/24 10:12 Respiratory Culture - Final Methicillin Resistant S.aureus Complete 11/12/24 08:49 Blood Blood Culture - Final NO GROWTH AFTER 5 DAYS OF INCUBATION. Complete Assessment Altered mental status, resolved Metabolic/hypoxic encephalopathy Acute on chronic respiratory failure, improved Fever/sepsis, resolved Essential tremors Sleep apnea on CPAP Right upper extremity DVT Plan/Recommendation Monitoring Supportive treatment Telemetry IV antibiotics Eliquis 5 mg b.i.d. Considering essential tremors treatment when she is ready APAP in the hospital Up to chair Physical therapy More recommendation per clinical course Prognosis: Poor Plan discussed with: Patient, Other ELLIE GAITAN MD November 24, 2024 23:13
[2024-11-25] VITALS (11 sets, daily range): BP systolic 105–143; BP diastolic 53–58; PULSE 75–91; RESP 16–18; TEMP 97.2–98.1; O2SAT 96–100
[2024-11-25 07:39] LABS: Basophils # (auto) 0 10 ^3/uL (0-0.2); Basophils % (auto) 0.2 % (0.0-2.0); Eosinophils # (auto) 0.3 10 ^3/uL (0-0.8); Eosinophils % (auto) 2.2 % (0.0-7.0); Hematocrit 38.2 % (36.0-46.0); Lymphocytes # (auto) 3.3 10 ^3/uL (0.4-5.4); Lymphocytes % (auto) 23.7 % (10.0-50.0); Mean Corpuscular Hemoglobin 31.1 pg (28.0-32.0); Mean Corpuscular Hgb Conc. 34.1 g/dL (32.0-36.0); Mean Corpuscular Volume 91.2 fL (80.0-100.0); Monocytes % (auto) 6.8 % (0.0-12.0); Neutrophils # (auto) 9.4 10 ^3/uL (1.6-8.6); Neutrophils % (auto) 67.1 % (37.0-80.0); Nucleated Red Blood Cells % 0.1 %; Platelet Count (auto) 213 10^3/uL (140-450); Red Blood Cells 4.19 10^6/uL (4.0-5.20); Red Cell Distribution Width 13.9 % (11.8-14.3); White Blood Cell 14.1 10^3/uL (4.4-10.8)
[2024-11-25 07:54] LABS: Anion Gap 6 (5-15); Calcium 9.4 mg/dL (8.7-10.4); Carbon Dioxide 30 mmol/L (20-31); Chloride 102 mmol/L (98-107); Potassium 3.8 mmol/L (3.5-5.1); Sodium 138 mmol/L (136-145)
[2024-11-25 08:00] LABS: BUN/Creatinine Ratio 21.4 (10.0-20.0); Blood Urea Nitrogen 12 mg/dL (9-23)
[2024-11-25 08:06] LABS: Glucose 121 mg/dL (74-106)
[2024-11-25] MEDS ORDERED: ACETAMINOPHEN 650 mg PER 20.3 mL UD PO PRN (08:30)
[2024-11-25] MEDS: BUMETANIDE 1 MG TAB PO SCH (10:10)
--- NOTE | 2024-11-25 17:36 | DVHPN2 ---
Subjective Patient was a 69-year-old female with past medical history as described below presented to the with a chief complaint of altered level of consciousness and fevers. According to the daughter, patient was admitted to seen with these about 2-3 weeks ago for chest pain and shortness of breath where she was treated for pneumonia and COPD and was discharged home but she was weak had fever which she was to the hospital about a week ago with a she was treated pneumoniae and ?dka with antibiotics and she was discharged to [facility]. While she was at the [facility] staff noticed to have diffuse up to 102 degree F and she had altered level of consciousness following which EMS were called and patient was brought to the hospital for further evaluation. While in the hospital patient was ordered unable to maintain airway following which she was intubated and put on mechanical ventilation. Past medical history: Hypertension, hyperlipidemia, peripheral neuropathy, insulin-dependent type 2 diabetes mellitus, COPD, obstructive sleep apnea on CPAP, GERD, history of carpal tunnel syndrome osteoporosis, ?hFpEF Past surgical history: Colostomy followed diverticulitis Social history: Patient lives has a history of smoking currently currently denies any drug, alcohol, smoking Home medications: Aspirin, Atenolol 25 mg ,atorvastatin 40, Lasix 40 mg, metoprolol tartrate 50 mg b.i.d., losartan 25 mg, insulin Lantus, 1000 mg b.i.d., omeprazole 20 mg, potassium chloride 20 mEq, verniciline tartrate 1 mg . Patient was seen and examined on the bedside. Extubated on 11/18/2024 and currently she is alert and oriented x3. patient is afebrile 11/25 weekend coverage. patient was doing well,. Not pulling on any tubes or IV lines. Appears A&O times 3-4. Mentating improved. Has relative, left 1 at bedside who was concerned. Patient on prednisone with causing increased WBC. Can likely deescalate vanc to ceftriaxone. Low concern for infection. Repeat UA without concern for infection but has glucosuria. Patient and family want to maintain urinary Stauffer at discharge with plan to remove in SNF once mobility is improved. We will follow up with Neurology for any further recommendations but likely discharge on Wednesday to SNF. Reviewed: Care Plan Changes from previous H/P or p: No Changes General: Per HPI Objective Vitals Vital Signs Date Time Temp Pulse Resp B/P (MAP) Pulse Ox O2 Delivery O2 Flow Rate FiO2 11/25/24 16:20 98.1 84 16 119/58 (78) 96 98.1 11/25/24 14:00 Nasal Cannula* 2 28 Intake/Output Intake and Output 11/25/24 07:00 Intake Total 1000 ml Output Total 1525 ml Balance -525 ml Intake Oral 1000 ml Output Urine Total 1500 ml Stool Total 25 ml Exam General Appearance: Alert, Oriented X3, Cooperative, mild distress and on 2L nasal canula HEENT: Atraumatic, PERRLA, EOMI, Mucous membrane moist/pink Respiratory: Clear to auscultation, Normal air movement Cardiovascular: Regular rate, Normal S1, Normal S2, No murmurs, no chest wall tenderness Abdominal: Normal bowel sounds, Soft, No tenderness, No hepatospenomegaly, No masses Extremities: No clubbing, No cyanosis, No edema, Normal pulses, No tenderness/swelling Skin: Unstageable ulcer in the right buttock, No rashes, No significant lesion Neuro: Normal speech, Strength at 5/5 X4 ext, Normal tone, Sensation intact, grossly intact cranial nerves Psych/Mental Status: Mental status NL, Mood NL General Appearance: Alert, Cooperative Cardiovascular: Regular rate, Normal S1, Normal S2 Medications Current Medications Medications Dose Ordered Sig/Purvi Route Start Time Stop Time Status Last Admin Dose Admin Vancomycin HCl 200 ml @ 200 mls/hr Q12HR IV 11/12/24 10:00 UNV Vancomycin HCl 0 ml @ 0 mls/hr UD IV 11/12/24 08:45 Ipratropium Rison 0.5 mg Q6HR NEB 11/12/24 18:00 11/25/24 13:59 0.5 MG Levalbuterol HCl 0.625 mg Q6HR NEB 11/13/24 18:00 11/25/24 13:59 0.625 MG Sodium Chloride 10 ml QSHIFT@10,22 IV 11/14/24 22:00 11/25/24 10:09 10 ML Nystatin 1 applic BID TOP 11/15/24 22:00 11/25/24 10:12 1 APPLIC Diagnostic Test (Pha) 1 strip Q6HR 11/18/24 12:00 11/25/24 11:51 1 STRIP Insulin Human Regular Q6HR SC 11/18/24 12:00 11/25/24 11:55 12 UNITS Dextrose 50 ml UD PRN IV 11/18/24 09:15 Hydralazine HCl 10 mg Q4HPRN PRN IV 11/18/24 15:30 11/21/24 00:56 10 MG Labetalol HCl 10 mg Q6HP PRN IV 11/19/24 12:30 11/20/24 15:44 10 MG Losartan Potassium 50 mg DAILY PO 11/21/24 10:00 11/25/24 10:11 50 MG Amlodipine Besylate 5 mg DAILY PO 11/22/24 10:00 11/25/24 10:12 5 MG Apixaban 5 mg BID PO 11/21/24 22:00 11/25/24 10:11 5 MG Pantoprazole Sodium 40 mg DAILY@0600 PO 11/23/24 06:00 11/25/24 05:37 40 MG Melatonin 5 mg HS PO 11/22/24 22:00 11/24/24 22:23 5 MG Prednisone 30 mg DAILY PO 11/24/24 10:00 11/25/24 10:10 30 MG Vancomycin HCl 250 ml @ 200 mls/hr DAILY IV 11/24/24 10:00 11/25/24 10:09 200 MLS/HR Bumetanide 1 mg DAILY PO 11/25/24 10:00 11/25/24 10:10 1 MG Acetaminophen 650 mg Q6HP PRN PO 11/25/24 08:30 Laboratory Results Laboratory Tests 11/25/24 07:23 Chemistry Test 11/25/24 07:23 Calcium Level 9.4 mg/dL (8.7-10.4) Urinalysis Test 11/12/24 12:23 11/23/24 18:10 Urine Uric Acid Crystals Few /hpf (None Seen) Urine Color Light-yellow (Yellow) Urine Clarity Turbid (Clear) H Urine pH 6.0 (5.0-9.0) Urine Specific [place] 1.014 (1.001-1.035) Urine Protein Negative (Negative) Urine Ketones Negative (Negative) Urine Blood Negative /uL (Negative) Urine Nitrite Negative (Negative) Urine Bilirubin Negative (Negative) Urine Urobilinogen Normal mg/dL (Negative) Urine Leukocyte Esterase Negative /uL (Negative) Urine RBC 4 /hpf (0 - 4) Urine Microscopic WBC 5 /HPF (0-5) Urine Squamous Epithelial Cells Few /hpf (<5) Urine Bacteria Few /hpf (None Seen) H Urine Mucus Few (None Seen) Urine Glucose 4+ mg/dL (Normal) H Microbiology Microbiology Date/Time Source Procedure Growth Status 11/12/24 18:52 Nose MRSA Screen - Final Complete 11/12/24 12:23 Voided Urine Urine Culture - Final Complete 11/12/24 10:12 Sputum Gram Stain - Final Complete 11/12/24 10:12 Respiratory Culture - Final Methicillin Resistant S.aureus Complete 11/12/24 08:49 Blood Blood Culture - Final NO GROWTH AFTER 5 DAYS OF INCUBATION. Complete Labs and/or images reviewed: Labs reviewed by me, Image(s) reviewed by me Assessment/Plan Assessment/Plan 11/25 weekend coverage. patient was doing well,. Not pulling on any tubes or IV lines. Appears A&O times 3-4. Mentating improved. Has relative, left 1 at bedside who was concerned. Patient on prednisone with causing increased WBC. Can likely deescalate vanc to ceftriaxone. Low concern for infection. Repeat UA without concern for infection but has glucosuria. Patient and family want to maintain urinary Stauffer at discharge with plan to remove in SNF once mobility is improved. We will follow up with Neurology for any further recommendations but likely discharge on Wednesday to SNF. Neurology Acute metabolic encephalopathy likely due to sepsis resolved - currently patient is alert and oriented x3 Respiratory Acute on chronic hypoxic respiratory failure Possible COPD,exacerbation MINOO on cpap ?Pneumonia due to MRSA Bilateral pulmonary edema - ABG compensated - chest x-ray shows bilateral interstitial opacities - DuoNebs q.6 hours - IV vancomycin as per pharmacy ( started on 11/16/23)/ previously on ceftriaxone - sputum cultures growing MRSA - Prednisone 40 mg daily - CPAP at nighttime Cardiovascular Acute on chronic heart failure with preserved ejection fraction Right upper arm DVT Hypertensive heart disease - ECHO 10/2024 shows hyperdynamic systolic function. LVEF was around 76% - BNP normal - Right upper arm venous Doppler showed no flow in axillary and the subclavian vein - Eloquis 5 mg bid - Losartan 50 mg p.o. daily - IV hydralazine 10 mg q.6 p.r.n. for SBP more than 160 Infectious disease Sepsis likely due to MRSA pneumonia with acute organ dysfunction without septic shock - blood cultures pending after 72 hours showed no growth - urine cultures show no growth - sputum cultures growing MRSA - IV antibiotics with the vancomycin Endocrinology Insulin-dependent type 2 diabetes mellitus with peripheral neuropathy Morbid obesity - recent Hba1C 7.8% - on insulin moderate sliding scale GI History of diverticulitis status post left lower quadrant colostomy Cholelithiasis Mild hepatomegaly and hepatic steatosis (seen on CT) Extubated on 11/18/24 Downgraded to Telemetry Diet:Consistent carbohydrate diet DVT prophylaxis: Eloquis PUD prophylaxis: Protonix left upper arm PICC line inserted on 11/14 Stauffer's catheter Plan discussed with: Patient Date of Service: November 25, 2024 Billing Provider: IRMA SARAVIA MD Common Visit Codes: [id number] INP/OBS CARE(HIGH) IRMA SARAVIA MD November 25, 2024 17:36
--- NOTE | 2024-11-25 19:59 | DVHPN2 ---
Progress Note - Dictate Date Seen: November 25, 2024 Medical Necessity Reason Pt with a Central, PICC or Fol: Yes The following are medically ne: PICC Line, Stauffer Catheter Subjective Ms. Ledbetter is a 69 years old right-handed female with a history of hypertension, diabetes, dyslipidemia, congestive heart failure, kidney stone, COPD, GERD, obesity, sleep apnea on CPAP, migraine headache, she was brought from her SNF to the [facility] on 11/12/24 with a chief complaint of ALOC. She was discharged from the [facility] on 11/08/2024 for sepsis, pneumonia, COPD I have seen and examined the patient, discussed with her nurse, she was doing fine, alert and oriented, no new complaints She was refused APAP for sleep apnea Blood culture, 11/12/2024: Negative WBC/HB/PLT/MCV, 11/24/2024: 12.9/14/2 48/90 BUN/CR, 11/21/2024: 16/0.56, 11/24/2024: 96/21.5 Lactic acid, 11/12/24: 2.3, 2.3 Beta hydroxide butyric acid, 11/12/24: 2.945 Liver function tests, 11/12/2024: Unremarkable TSH, 11/14/2024: 0.62 FT4, 11/14/2024: 1.07 Extremity venous study, 11/13/2024: 1. Positive venous thrombus identified in the RIGHT upper extremity vessels evaluated above. 2. Thrombus noted in the right upper extremity basilic vein. This was confirmed by Tania VACA. 3. If clinical concern/symptoms persist or worsen, short-interval follow-up study is suggested. Chest x-ray, 11/12/2024: 1. Satisfactory positioning of the endotracheal tube. 2. No other significant interval change Chest x-ray, 11/24/2024: Cardiomegaly with pulmonary vascular congestion. Left PICC tip projects over the superior vena cava. CT head, 11/12/2024: No acute intracranial abnormality vital signs Vital Sign Date Time Temp Pulse Resp B/P (MAP) Pulse Ox O2 Delivery O2 Flow Rate FiO2 11/25/24 18:58 80 18 100 11/25/24 18:48 Nasal Cannula 2.0 11/25/24 18:48 28 11/25/24 16:20 98.1 119/58 (78) 98.1 Total Intake and Output 11/24/24 11/24/24 11/25/24 15:00 23:00 07:00 Intake Total 1000 ml Output Total 500 ml 1025 ml Balance 500 ml -1025 ml medications Current Medications Medications Dose Ordered Sig/Purvi Route Start Time Stop Time Status Last Admin Dose Admin Vancomycin HCl 200 ml @ 200 mls/hr Q12HR IV 11/12/24 10:00 UNV Vancomycin HCl 0 ml @ 0 mls/hr UD IV 11/12/24 08:45 Ipratropium Superior 0.5 mg Q6HR NEB 11/12/24 18:00 11/25/24 18:48 0.5 MG Levalbuterol HCl 0.625 mg Q6HR NEB 11/13/24 18:00 11/25/24 18:48 0.625 MG Sodium Chloride 10 ml QSHIFT@10,22 IV 11/14/24 22:00 11/25/24 10:09 10 ML Nystatin 1 applic BID TOP 11/15/24 22:00 11/25/24 10:12 1 APPLIC Diagnostic Test (Pha) 1 strip Q6HR 11/18/24 12:00 11/25/24 18:02 1 STRIP Insulin Human Regular Q6HR SC 11/18/24 12:00 11/25/24 18:04 6 UNITS Dextrose 50 ml UD PRN IV 11/18/24 09:15 Hydralazine HCl 10 mg Q4HPRN PRN IV 11/18/24 15:30 11/21/24 00:56 10 MG Labetalol HCl 10 mg Q6HP PRN IV 11/19/24 12:30 11/20/24 15:44 10 MG Losartan Potassium 50 mg DAILY PO 11/21/24 10:00 11/25/24 10:11 50 MG Amlodipine Besylate 5 mg DAILY PO 11/22/24 10:00 11/25/24 10:12 5 MG Apixaban 5 mg BID PO 11/21/24 22:00 11/25/24 10:11 5 MG Pantoprazole Sodium 40 mg DAILY@0600 PO 11/23/24 06:00 11/25/24 05:37 40 MG Melatonin 5 mg HS PO 11/22/24 22:00 11/24/24 22:23 5 MG Prednisone 30 mg DAILY PO 11/24/24 10:00 11/25/24 10:10 30 MG Vancomycin HCl 250 ml @ 200 mls/hr DAILY IV 11/24/24 10:00 11/25/24 10:09 200 MLS/HR Bumetanide 1 mg DAILY PO 11/25/24 10:00 11/25/24 10:10 1 MG Acetaminophen 650 mg Q6HP PRN PO 11/25/24 08:30 objective General: the patient is well developed and nourished. No acute distress. MENTAL STATUS: Subjective SPEECH, LANGUAGE, HIGHER CORTICAL FUNCTION: no aphasia or dysathria. CRANIAL NERVES: Pupils are equal, round and reactive. EOMs full and conjugate. No nystagmus. Facial sensation intact in all three divisions bilaterally. Mandibular strength intact. Facial muscles symmetrical and strength intact. SENSATION: Sensation to touch and pinprick is normal. MOTOR: Normal tone in the upper and lower extremity. Normal muscle bulk. No fasciculations. Both resting and dynamic tremors noticed in both hands. Muscle strength of the major groups in the upper extremities is 5/5. He moves both legs REFLEXES: Deep tendon reflexes normal and symmetrical. No pathological reflexes. CEREBELLAR/COORDINATION: Finger to nose and heel to isabel are normal bilaterally. GAIT/STATION: deferred. laboratory and microbiology Laboratory Tests 11/25/24 07:23 Test 11/25/24 07:23 Range/Units Serum Glucose 121 H 74-106 mg/dL Problem List Altered mental status, resolved Metabolic/hypoxic encephalopathy Acute on chronic respiratory failure, improved Fever/sepsis, resolved Essential tremors Sleep apnea on CPAP Right upper extremity DVT Assessment/Plan Monitoring Supportive treatment Telemetry IV antibiotics Eliquis 5 mg b.i.d. Considering essential tremors treatment when she is ready APAP in the hospital (she refused) Up to chair Physical therapy More recommendation per clinical course This medical document was created using an electronic medical record system with [employer] dictation system. Although this document has been carefully reviewed, there may still be some phonetic and typographical errors. These areas are purely typographical due to imperfections of the software programs, and do not reflect any compromise in the patient's medical care. Prognosis poor Dietary Evaluation Review Comments: 1. Suggest formula Osmolite 1.2 @ 50 ml/hr (GOAL). Begin at 10 ml/hr, advance by 10 ml Q4 hrs or as tolerated to goal-rate of 50 ml/hr x 24 hrs 2. If BG becomes uncontrolled, may change to Glucerna 1.2 at same goal-rate 3. Provide free water flushes of 30 ml Q6 hrs (120 ml total); adjust PRN 4. Monitor BMP/lytes and replete to WNL/PRN TF Provision: TF at goal to provide 1200 ml total volume, 1440 kcal (+211 kcal via propofol = 1651 kcal), 66 gm pro, 189 gm CHO, 0 gm fiber, 984 ml H20 (meets 100% est. kcal needs, 100% est. pro needs) Expected Outcomes/Goals: Adequate enteral infusion, weight maintenance. Plan discussed with: Other ELLIE GAITAN MD November 25, 2024 19:59
[2024-11-26] VITALS (12 sets, daily range): BP systolic 99–122; BP diastolic 56–62; PULSE 72–91; RESP 12–20; TEMP 96.6–98.1; O2SAT 95–100
[2024-11-26 06:56] LABS: Basophils # (auto) 0 10 ^3/uL (0-0.2); Basophils % (auto) 0.3 % (0.0-2.0); Eosinophils # (auto) 0.2 10 ^3/uL (0-0.8); Eosinophils % (auto) 1.7 % (0.0-7.0); Hematocrit 41.7 % (36.0-46.0); Hemoglobin 14.2 g/dL (12.2-16.2); Lymphocytes # (auto) 3.4 10 ^3/uL (0.4-5.4); Lymphocytes % (auto) 24.6 % (10.0-50.0); Mean Corpuscular Hemoglobin 30.7 pg (28.0-32.0); Mean Corpuscular Hgb Conc. 34.1 g/dL (32.0-36.0); Monocytes % (auto) 7.3 % (0.0-12.0); Neutrophils # (auto) 9.1 10 ^3/uL (1.6-8.6); Neutrophils % (auto) 66.1 % (37.0-80.0); Platelet Count (auto) 233 10^3/uL (140-450); Red Blood Cells 4.63 10^6/uL (4.0-5.20); White Blood Cell 13.8 10^3/uL (4.4-10.8)
--- NOTE | 2024-11-26 14:14 | DVHPN2 ---
Subjective Patient was a 69-year-old female with past medical history as described below presented to the with a chief complaint of altered level of consciousness and fevers. According to the daughter, patient was admitted to seen with these about 2-3 weeks ago for chest pain and shortness of breath where she was treated for pneumonia and COPD and was discharged home but she was weak had fever which she was to the hospital about a week ago with a she was treated pneumoniae and ?dka with antibiotics and she was discharged to [facility]. While she was at the [facility] staff noticed to have diffuse up to 102 degree F and she had altered level of consciousness following which EMS were called and patient was brought to the hospital for further evaluation. While in the hospital patient was ordered unable to maintain airway following which she was intubated and put on mechanical ventilation. Past medical history: Hypertension, hyperlipidemia, peripheral neuropathy, insulin-dependent type 2 diabetes mellitus, COPD, obstructive sleep apnea on CPAP, GERD, history of carpal tunnel syndrome osteoporosis, ?hFpEF Past surgical history: Colostomy followed diverticulitis Social history: Patient lives has a history of smoking currently currently denies any drug, alcohol, smoking Home medications: Aspirin, Atenolol 25 mg ,atorvastatin 40, Lasix 40 mg, metoprolol tartrate 50 mg b.i.d., losartan 25 mg, insulin Lantus, 1000 mg b.i.d., omeprazole 20 mg, potassium chloride 20 mEq, verniciline tartrate 1 mg . Patient was seen and examined on the bedside. Extubated on 11/18/2024 and currently she is alert and oriented x3. patient is afebrile 11/25 weekend coverage. patient was doing well,. Not pulling on any tubes or IV lines. Appears A&O times 3-4. Mentating improved. Has relative, left 1 at bedside who was concerned. Patient on prednisone with causing increased WBC. Can likely deescalate vanc to ceftriaxone. Low concern for infection. Repeat UA without concern for infection but has glucosuria. Patient and family want to maintain urinary Stauffer at discharge with plan to remove in SNF once mobility is improved. We will follow up with Neurology for any further recommendations but likely discharge on Wednesday to SNF. 11/26 patient was doing well A&O times 3-4, patient family at bedside for support. Low concern for infection, WBC leukocytosis likely from prednisone. Per primary team's discharge plan, continuing home meds, Protonix p.o. daily, amlodipine 5 mg daily, prednisone 30 mg daily, losartan 50 mg daily,. Patient will be ready for discharge tomorrow morning to SNF for acute PT rehab. Today deescalated vanc to ceftriaxone. No further antibiotics needed at discharge. Stauffer to continue into sniff rehab, when patient ambulation improves then Dr./treatment team at SNF can decide to remove Stauffer. Reviewed: Care Plan Changes from previous H/P or p: No Changes General: Per HPI Objective Vitals Vital Signs Date Time Temp Pulse Resp B/P (MAP) Pulse Ox O2 Delivery O2 Flow Rate FiO2 11/26/24 11:54 81 18 99 11/26/24 11:46 Nasal Cannula* 2 28 11/26/24 10:00 99/58 11/26/24 09:00 97.3 97.3 Intake/Output Intake and Output 11/26/24 07:00 Intake Total 1180 ml Output Total 1700 ml Balance -520 ml Intake Oral 930 ml IV Total 250 ml Output Urine Total 1700 ml Exam General Appearance: Alert, Oriented X3, Cooperative, mild distress and on 2L nasal canula HEENT: Atraumatic, PERRLA, EOMI, Mucous membrane moist/pink Respiratory: Clear to auscultation, Normal air movement Cardiovascular: Regular rate, Normal S1, Normal S2, No murmurs, no chest wall tenderness Abdominal: Normal bowel sounds, Soft, No tenderness, No hepatospenomegaly, No masses Extremities: No clubbing, No cyanosis, No edema, Normal pulses, No tenderness/swelling Skin: Unstageable ulcer in the right buttock, No rashes, No significant lesion Neuro: Normal speech, Strength at 5/5 X4 ext, Normal tone, Sensation intact, grossly intact cranial nerves Psych/Mental Status: Mental status NL, Mood NL General Appearance: Alert, Cooperative Cardiovascular: Regular rate, Normal S1, Normal S2 Medications Current Medications Medications Dose Ordered Sig/Purvi Route Start Time Stop Time Status Last Admin Dose Admin Vancomycin HCl 200 ml @ 200 mls/hr Q12HR IV 11/12/24 10:00 UNV Ipratropium [place] 0.5 mg Q6HR NEB 11/12/24 18:00 11/26/24 11:46 0.5 MG Levalbuterol HCl 0.625 mg Q6HR NEB 11/13/24 18:00 11/26/24 11:46 0.625 MG Sodium Chloride 10 ml QSHIFT@ IV 11/14/24 22:00 11/26/24 10:58 10 ML Nystatin 1 applic BID TOP 11/15/24 22:00 11/26/24 10:58 1 APPLIC Diagnostic Test (Pha) 1 strip Q6HR 11/18/24 12:00 11/26/24 12:15 1 STRIP Insulin Human Regular Q6HR SC 11/18/24 12:00 11/26/24 12:17 6 UNITS Dextrose 50 ml UD PRN IV 11/18/24 09:15 Hydralazine HCl 10 mg Q4HPRN PRN IV 11/18/24 15:30 11/21/24 00:56 10 MG Labetalol HCl 10 mg Q6HP PRN IV 11/19/24 12:30 11/20/24 15:44 10 MG Losartan Potassium 50 mg DAILY PO 11/21/24 10:00 11/25/24 10:11 50 MG Amlodipine Besylate 5 mg DAILY PO 11/22/24 10:00 11/25/24 10:12 5 MG Apixaban 5 mg BID PO 11/21/24 22:00 11/26/24 10:56 5 MG Pantoprazole Sodium 40 mg DAILY@0600 PO 11/23/24 06:00 11/26/24 05:35 40 MG Melatonin 5 mg HS PO 11/22/24 22:00 11/25/24 22:33 5 MG Prednisone 30 mg DAILY PO 11/24/24 10:00 11/26/24 10:56 30 MG Bumetanide 1 mg DAILY PO 11/25/24 10:00 11/25/24 10:10 1 MG Acetaminophen 650 mg Q6HP PRN PO 11/25/24 08:30 Ceftriaxone Sodium 50 ml @ 100 mls/hr DAILY@09 IV 11/26/24 12:26 Laboratory Results Laboratory Tests 11/25/24 07:23 11/26/24 06:26 Urinalysis Test 11/12/24 12:23 11/23/24 18:10 Urine Uric Acid Crystals Few /hpf (None Seen) Urine Color Light-yellow (Yellow) Urine Clarity Turbid (Clear) H Urine pH 6.0 (5.0-9.0) Urine Specific [place] 1.014 (1.001-1.035) Urine Protein Negative (Negative) Urine Ketones Negative (Negative) Urine Blood Negative /uL (Negative) Urine Nitrite Negative (Negative) Urine Bilirubin Negative (Negative) Urine Urobilinogen Normal mg/dL (Negative) Urine Leukocyte Esterase Negative /uL (Negative) Urine RBC 4 /hpf (0 - 4) Urine Microscopic WBC 5 /HPF (0-5) Urine Squamous Epithelial Cells Few /hpf (<5) Urine Bacteria Few /hpf (None Seen) H Urine Mucus Few (None Seen) Urine Glucose 4+ mg/dL (Normal) H Microbiology Microbiology Date/Time Source Procedure Growth Status 11/12/24 18:52 Nose MRSA Screen - Final Complete 11/12/24 12:23 Voided Urine Urine Culture - Final Complete 11/12/24 10:12 Sputum Gram Stain - Final Complete 11/12/24 10:12 Respiratory Culture - Final Methicillin Resistant S.aureus Complete 11/12/24 08:49 Blood Blood Culture - Final NO GROWTH AFTER 5 DAYS OF INCUBATION. Complete Labs and/or images reviewed: Labs reviewed by me, Image(s) reviewed by me Assessment/Plan Assessment/Plan 11/25 weekend coverage. patient was doing well,. Not pulling on any tubes or IV lines. Appears A&O times 3-4. Mentating improved. Has relative, left 1 at bedside who was concerned. Patient on prednisone with causing increased WBC. Can likely deescalate vanc to ceftriaxone. Low concern for infection. Repeat UA without concern for infection but has glucosuria. Patient and family want to maintain urinary Stauffer at discharge with plan to remove in SNF once mobility is improved. We will follow up with Neurology for any further recommendations but likely discharge on Wednesday to SNF. 11/26 patient was doing well A&O times 3-4, patient family at bedside for support. Low concern for infection, WBC leukocytosis likely from prednisone. Per primary team's discharge plan, continuing home meds, Protonix p.o. daily, amlodipine 5 mg daily, prednisone 30 mg daily, losartan 50 mg daily,. Patient will be ready for discharge tomorrow morning to SNF for acute PT rehab. Today deescalated vanc to ceftriaxone. No further antibiotics needed at discharge. Stauffer to continue into sniff rehab, when patient ambulation improves then Dr./treatment team at [facility] can decide to remove Stauffer. Neurology Acute metabolic encephalopathy likely due to sepsis resolved - currently patient is alert and oriented x3 Respiratory Acute on chronic hypoxic respiratory failure Possible COPD,exacerbation MINOO on cpap ?Pneumonia due to MRSA Bilateral pulmonary edema - ABG compensated - chest x-ray shows bilateral interstitial opacities - DuoNebs q.6 hours - IV vancomycin as per pharmacy ( started on 11/16/23)/ previously on ceftriaxone - sputum cultures growing MRSA - Prednisone 40 mg daily - CPAP at nighttime Cardiovascular Acute on chronic heart failure with preserved ejection fraction Right upper arm DVT Hypertensive heart disease - ECHO 10/2024 shows hyperdynamic systolic function. LVEF was around 76% - BNP normal - Right upper arm venous Doppler showed no flow in axillary and the subclavian vein - Eloquis 5 mg bid - Losartan 50 mg p.o. daily - IV hydralazine 10 mg q.6 p.r.n. for SBP more than 160 Infectious disease Sepsis likely due to MRSA pneumonia with acute organ dysfunction without septic shock - blood cultures pending after 72 hours showed no growth - urine cultures show no growth - sputum cultures growing MRSA - IV antibiotics with the vancomycin Endocrinology Insulin-dependent type 2 diabetes mellitus with peripheral neuropathy Morbid obesity - recent Hba1C 7.8% - on insulin moderate sliding scale GI History of diverticulitis status post left lower quadrant colostomy Cholelithiasis Mild hepatomegaly and hepatic steatosis (seen on CT) Extubated on 11/18/24 Downgraded to Telemetry Diet:Consistent carbohydrate diet DVT prophylaxis: Eloquis PUD prophylaxis: Protonix left upper arm PICC line inserted on 11/14 Stauffer's catheter Plan discussed with: Patient, Daughter My Orders Orders - IRMA SARAVIA MD Procedure Category Date Status Time Ceftriaxone 1gm/50ml PHA 11/26/24 In Process D5w (Rocephin) 12:26 Date of Service: November 26, 2024 Billing Provider: IRMA SARAVIA MD Common Visit Codes: [id number] INP/OBS CARE(HIGH) IRMA SARAVIA MD November 26, 2024 14:14
[2024-11-26] MEDS: cefTRIAXone 1GM/50ML D5W 50 ML IV SCH (17:03)
[2024-11-27] VITALS (16 sets, daily range): BP systolic 104–143; BP diastolic 56–64; PULSE 69–99; RESP 15–18; TEMP 97.7–98.7; O2SAT 71–100
[2024-11-27 10:05] LABS: Basophils # (auto) 0 10 ^3/uL (0-0.2); Basophils % (auto) 0.3 % (0.0-2.0); Eosinophils # (auto) 0.2 10 ^3/uL (0-0.8); Eosinophils % (auto) 1.3 % (0.0-7.0); Hematocrit 37.5 % (36.0-46.0); Hemoglobin 12.6 g/dL (12.2-16.2); Lymphocytes # (auto) 3.4 10 ^3/uL (0.4-5.4); Lymphocytes % (auto) 26.5 % (10.0-50.0); Mean Corpuscular Hemoglobin 30.3 pg (28.0-32.0); Mean Corpuscular Hgb Conc. 33.6 g/dL (32.0-36.0); Mean Corpuscular Volume 90.3 fL (80.0-100.0); Monocytes % (auto) 7.7 % (0.0-12.0); Neutrophils # (auto) 8.2 10 ^3/uL (1.6-8.6); Neutrophils % (auto) 64.2 % (37.0-80.0); Platelet Count (auto) 238 10^3/uL (140-450); Red Blood Cells 4.15 10^6/uL (4.0-5.20); Red Cell Distribution Width 13.8 % (11.8-14.3); White Blood Cell 12.7 10^3/uL (4.4-10.8)
[2024-11-27 10:18] LABS: Anion Gap 8 (5-15); Chloride 98 mmol/L (98-107); Sodium 139 mmol/L (136-145)
[2024-11-27 10:22] LABS: Calcium 9.3 mg/dL (8.7-10.4)
[2024-11-27 10:23] LABS: Carbon Dioxide 33 mmol/L (20-31); Potassium 2.9 mmol/L (3.5-5.1)
[2024-11-27 10:24] LABS: BUN/Creatinine Ratio 19.3 (10.0-20.0); Blood Urea Nitrogen 11 mg/dL (9-23); Glucose 136 mg/dL (74-106)
[2024-11-27] MEDS ORDERED: POTASSIUM EFFERVESENT TAB 25 MEQ PO ONE (15:30)
[2024-11-27] MEDS ORDERED: POTASSIUM CHL 20MEQ/100ML 100 ML IV SCH (15:30)
--- NOTE | 2024-11-27 16:08 | DVHPNRES ---
Progress Note Date Seen: November 27, 2024 Resident Creating Document: ABRAHAM GARCIA RESIDENT Medical Necessity Reason Pt with a Central, PICC or Fol: Yes The following are medically ne: PICC Line, Stauffer Catheter Subjective Review of Systems Patient was seen and examined on the bedside. Extubated on 11/18/2024 and currently she is alert and oriented x3. patient is afebrile for last 48 hours and 24 hours T-max is 98.1. Patient is on consistent carbohydrate diet PT evaluated the patient and recommended SNF for rehab Right upper arm DVT, on anticoagulation Objective vital signs Vital Sign Date Time Temp Pulse Resp B/P (MAP) Pulse Ox O2 Delivery O2 Flow Rate FiO2 11/27/24 12:51 98.2 75 17 123/63 (83) 99 98.2 11/27/24 11:36 Nasal Cannula* 2 28 Total Intake and Output 11/26/24 11/26/24 11/27/24 15:00 23:00 07:00 Intake Total 780 ml Output Total 550 ml 650 ml Balance 230 ml -650 ml medications Current Medications Medications Dose Ordered Sig/Purvi Route Start Time Stop Time Status Last Admin Dose Admin Vancomycin HCl 200 ml @ 200 mls/hr Q12HR IV 11/12/24 10:00 UNV Ipratropium [place] 0.5 mg Q6HR NEB 11/12/24 18:00 11/27/24 11:36 0.5 MG Levalbuterol HCl 0.625 mg Q6HR NEB 11/13/24 18:00 11/27/24 11:36 0.625 MG Sodium Chloride 10 ml QSHIFT@10,22 IV 11/14/24 22:00 11/27/24 12:46 10 ML Diagnostic Test (Pha) 1 strip Q6HR 11/18/24 12:00 11/27/24 12:47 1 STRIP Insulin Human Regular Q6HR SC 11/18/24 12:00 11/27/24 12:51 3 UNITS Dextrose 50 ml UD PRN IV 11/18/24 09:15 Hydralazine HCl 10 mg Q4HPRN PRN IV 11/18/24 15:30 11/21/24 00:56 10 MG Labetalol HCl 10 mg Q6HP PRN IV 11/19/24 12:30 11/20/24 15:44 10 MG Losartan Potassium 50 mg DAILY PO 11/21/24 10:00 11/27/24 12:45 50 MG Amlodipine Besylate 5 mg DAILY PO 11/22/24 10:00 11/27/24 12:44 5 MG Apixaban 5 mg BID PO 11/21/24 22:00 11/27/24 12:44 5 MG Pantoprazole Sodium 40 mg DAILY@0600 PO 11/23/24 06:00 11/27/24 05:40 40 MG Melatonin 5 mg HS PO 11/22/24 22:00 11/26/24 21:42 5 MG Bumetanide 1 mg DAILY PO 11/25/24 10:00 11/27/24 12:45 1 MG Acetaminophen 650 mg Q6HP PRN PO 11/25/24 08:30 Ceftriaxone Sodium 50 ml @ 100 mls/hr DAILY@09 IV 11/26/24 12:26 11/27/24 12:46 100 MLS/HR Prednisone 20 mg DAILY PO 11/28/24 10:00 Examination Physical examination: General Appearance: Alert, Oriented X3, Cooperative, mild distress and on 2L nasal canula HEENT: Atraumatic, PERRLA, EOMI, Mucous membrane moist/pink Respiratory: Clear to auscultation, Normal air movement Cardiovascular: Regular rate, Normal S1, Normal S2, No murmurs, no chest wall tenderness Abdominal: Normal bowel sounds, Soft, No tenderness, No hepatospenomegaly, No masses Extremities: No clubbing, No cyanosis, No edema, Normal pulses, No tenderness/swelling Skin: Unstageable ulcer in the right buttock, No rashes, No significant lesion Neuro: Normal speech, Strength at 5/5 X4 ext, Normal tone, Sensation intact, grossly intact cranial nerves Psych/Mental Status: Mental status NL, Mood NL laboratory and microbiology Laboratory Tests 11/27/24 09:25 Test 11/27/24 09:25 Range/Units Serum Glucose 136 H 74-106 mg/dL Microbiology Date/Time Source Procedure Growth Status 11/12/24 18:52 Nose MRSA Screen - Final Complete 11/12/24 12:23 Voided Urine Urine Culture - Final Complete 11/12/24 10:12 Sputum Gram Stain - Final Complete 11/12/24 10:12 Respiratory Culture - Final Methicillin Resistant S.aureus Complete 11/12/24 08:49 Blood Blood Culture - Final NO GROWTH AFTER 5 DAYS OF INCUBATION. Complete Labs and/or images reviewed: Labs reviewed by me, Image(s) reviewed by me Problem List/Assessment/Plan Problem List/Assessment/Plan Assessment and Plan: Neurology Acute metabolic encephalopathy likely due to sepsis resolved - currently patient is alert and oriented x3 Respiratory Acute on chronic hypoxic respiratory failure Possible COPD,exacerbation MINOO on cpap ?Pneumonia due to MRSA Bilateral pulmonary edema - ABG compensated - chest x-ray shows bilateral interstitial opacities - DuoNebs q.6 hours - sputum cultures growing MRSA - IV ceftriaxone 1 gm daily ( started on 11/27/23)/ Previously on MRSA since 11/15/24 - sputum cultures growing MRSA - Prednisone 40 mg daily - CPAP at nighttime Cardiovascular Acute on chronic heart failure with preserved ejection fraction Right upper arm DVT Hypertensive heart disease - ECHO 10/2024 shows hyperdynamic systolic function. LVEF was around 76% - BNP normal - Right upper arm venous Doppler showed no flow in axillary and the subclavian vein - Eloquis 5 mg bid - Losartan 50 mg p.o. daily - IV hydralazine 10 mg q.6 p.r.n. 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 Full code discharge will be held due to hypokalemia Plan discussed with Dr. Mccormick Plan discussed with: Patient, Daughter My Orders My Orders Orders - ABRAHAM GARCIA RESIDENT Procedure Category Date Status Time Discharge DISCHARGE 11/27/24 Transmitted 13:14 Dietary Evaluation Review Comments: 1. Suggest formula Osmolite 1.2 @ 50 ml/hr (GOAL). Begin at 10 ml/hr, advance by 10 ml Q4 hrs or as tolerated to goal-rate of 50 ml/hr x 24 hrs 2. If BG becomes uncontrolled, may change to Glucerna 1.2 at same goal-rate 3. Provide free water flushes of 30 ml Q6 hrs (120 ml total); adjust PRN 4. Monitor BMP/lytes and replete to WNL/PRN TF Provision: TF at goal to provide 1200 ml total volume, 1440 kcal (+211 kcal via propofol = 1651 kcal), 66 gm pro, 189 gm CHO, 0 gm fiber, 984 ml H20 (meets 100% est. kcal needs, 100% est. pro needs) Expected Outcomes/Goals: Adequate enteral infusion, weight maintenance. Date of Service: November 27, 2024 Billing Provider: KOBY MCCORMICK MD Common Visit Codes: [id number] INP/OBS CARE(HIGH) Secondary Visit Codes: [id number] CARE PLAN 30 MINUTES ABRAHAM GARCIA RESIDENT November 27, 2024 16:08 KOBY MCCORMICK MD November 28, 2024 15:54
[2024-11-27] MEDS: POTASSIUM EFFERVESENT TAB 25 MEQ PO ONE (16:51)
--- NOTE | 2024-11-27 21:48 | DVHPN2 ---
Progress Note - Dictate Date Seen: November 27, 2024 Medical Necessity Reason Pt with a Central, PICC or Fol: Yes The following are medically ne: PICC Line, Stauffer Catheter Subjective Ms. Ledbetter is a 69 years old right-handed female with a history of hypertension, diabetes, dyslipidemia, congestive heart failure, kidney stone, COPD, GERD, obesity, sleep apnea on CPAP, migraine headache, she was brought from her SNF to the [facility] on 11/12/24 with a chief complaint of ALOC. She was discharged from the [facility] on 11/08/2024 for sepsis, pneumonia, COPD I have seen and examined the patient, discussed with her nurse, she was doing fine, alert and oriented, no new complaints She refused APAP for sleep apnea because we do not have right mask for her Her potassium is still low Blood culture, 11/12/2024: Negative WBC/HB/PLT/MCV, 11/24/2024: 12.9/14/2 48/90 BUN/CR, 11/21/2024: 16/0.56, 11/24/2024: 96/21.5 Lactic acid, 11/12/24: 2.3, 2.3 Beta hydroxide butyric acid, 11/12/24: 2.945 Liver function tests, 11/12/2024: Unremarkable TSH, 11/14/2024: 0.62 FT4, 11/14/2024: 1.07 Extremity venous study, 11/13/2024: 1. Positive venous thrombus identified in the RIGHT upper extremity vessels evaluated above. 2. Thrombus noted in the right upper extremity basilic vein. This was confirmed by Tania VACA. 3. If clinical concern/symptoms persist or worsen, short-interval follow-up study is suggested. Chest x-ray, 11/12/2024: 1. Satisfactory positioning of the endotracheal tube. 2. No other significant interval change Chest x-ray, 11/24/2024: Cardiomegaly with pulmonary vascular congestion. Left PICC tip projects over the superior vena cava. CT head, 11/12/2024: No acute intracranial abnormality vital signs Vital Sign Date Time Temp Pulse Resp B/P (MAP) Pulse Ox O2 Delivery O2 Flow Rate FiO2 11/27/24 21:00 97.7 88 18 104/56 (72) 98 97.7 11/27/24 19:54 2.0 28 11/27/24 18:38 Nasal Cannula Total Intake and Output 11/26/24 11/26/24 11/27/24 15:00 23:00 07:00 Intake Total 780 ml Output Total 550 ml 650 ml Balance 230 ml -650 ml medications Current Medications Medications Dose Ordered Sig/Purvi Route Start Time Stop Time Status Last Admin Dose Admin Vancomycin HCl 200 ml @ 200 mls/hr Q12HR IV 11/12/24 10:00 UNV Ipratropium [place] 0.5 mg Q6HR NEB 11/12/24 18:00 11/27/24 18:38 0.5 MG Levalbuterol HCl 0.625 mg Q6HR NEB 11/13/24 18:00 11/27/24 18:38 0.625 MG Sodium Chloride 10 ml QSHIFT@1022 IV 11/14/24 22:00 11/27/24 12:46 10 ML Diagnostic Test (Pha) 1 strip Q6HR 11/18/24 12:00 11/27/24 16:54 1 STRIP Insulin Human Regular Q6HR SC 11/18/24 12:00 11/27/24 16:54 9 UNITS Dextrose 50 ml UD PRN IV 11/18/24 09:15 Hydralazine HCl 10 mg Q4HPRN PRN IV 11/18/24 15:30 11/21/24 00:56 10 MG Labetalol HCl 10 mg Q6HP PRN IV 11/19/24 12:30 11/20/24 15:44 10 MG Losartan Potassium 50 mg DAILY PO 11/21/24 10:00 11/27/24 12:45 50 MG Amlodipine Besylate 5 mg DAILY PO 11/22/24 10:00 11/27/24 12:44 5 MG Apixaban 5 mg BID PO 11/21/24 22:00 11/27/24 12:44 5 MG Pantoprazole Sodium 40 mg DAILY@0600 PO 11/23/24 06:00 11/27/24 05:40 40 MG Melatonin 5 mg HS PO 11/22/24 22:00 11/26/24 21:42 5 MG Bumetanide 1 mg DAILY PO 11/25/24 10:00 11/27/24 12:45 1 MG Acetaminophen 650 mg Q6HP PRN PO 11/25/24 08:30 Ceftriaxone Sodium 50 ml @ 100 mls/hr DAILY@09 IV 11/26/24 12:26 11/27/24 12:46 100 MLS/HR Prednisone 20 mg DAILY PO 11/28/24 10:00 objective General: the patient is well developed and nourished. No acute distress. MENTAL STATUS: Subjective SPEECH, LANGUAGE, HIGHER CORTICAL FUNCTION: no aphasia or dysathria. CRANIAL NERVES: Pupils are equal, round and reactive. EOMs full and conjugate. No nystagmus. Facial sensation intact in all three divisions bilaterally. Mandibular strength intact. Facial muscles symmetrical and strength intact. SENSATION: Sensation to touch and pinprick is normal. MOTOR: Normal tone in the upper and lower extremity. Normal muscle bulk. No fasciculations. Both resting and dynamic tremors noticed in both hands. Muscle strength of the major groups in the upper extremities is 5/5. He moves both legs REFLEXES: Deep tendon reflexes normal and symmetrical. No pathological reflexes. CEREBELLAR/COORDINATION: Finger to nose and heel to isabel are normal bilaterally. GAIT/STATION: deferred. laboratory and microbiology Laboratory Tests 11/27/24 09:25 Test 11/27/24 09:25 Range/Units Serum Glucose 136 H 74-106 mg/dL Problem List Altered mental status, resolved Metabolic/hypoxic encephalopathy Acute on chronic respiratory failure, improved Fever/sepsis, resolved Essential tremors Sleep apnea on CPAP Right upper extremity DVT Hypokalemia Assessment/Plan Monitoring Supportive treatment Telemetry Does seem supplementation IV antibiotics Eliquis 5 mg b.i.d. Considering essential tremors treatment when she is ready APAP in the hospital (she refused) Up to chair Physical therapy More recommendation per clinical course Neurology has no more offer, and will sign off, thank you much for giving me an opportunity to take care of this pleasant lady This medical document was created using an electronic medical record system with [employer] dictation system. Although this document has been carefully reviewed, there may still be some phonetic and typographical errors. These areas are purely typographical due to imperfections of the software programs, and do not reflect any compromise in the patient's medical care. Prognosis poor Dietary Evaluation Review Comments: 1. Suggest formula Osmolite 1.2 @ 50 ml/hr (GOAL). Begin at 10 ml/hr, advance by 10 ml Q4 hrs or as tolerated to goal-rate of 50 ml/hr x 24 hrs 2. If BG becomes uncontrolled, may change to Glucerna 1.2 at same goal-rate 3. Provide free water flushes of 30 ml Q6 hrs (120 ml total); adjust PRN 4. Monitor BMP/lytes and replete to WNL/PRN TF Provision: TF at goal to provide 1200 ml total volume, 1440 kcal (+211 kcal via propofol = 1651 kcal), 66 gm pro, 189 gm CHO, 0 gm fiber, 984 ml H20 (meets 100% est. kcal needs, 100% est. pro needs) Expected Outcomes/Goals: Adequate enteral infusion, weight maintenance. Plan discussed with: Patient, Other ELLIE GAITAN MD November 27, 2024 21:48
[2024-11-27] MEDS: MAGNESIUM OXIDE 400 MG TAB PO ONE (21:50)
[2024-11-28] VITALS (11 sets, daily range): BP systolic 103–144; BP diastolic 48–69; PULSE 74–90; RESP 16–18; TEMP 97.8–98.6; O2SAT 97–100
[2024-11-28 06:36] LABS: Basophils # (auto) 0 10 ^3/uL (0-0.2); Basophils % (auto) 0.2 % (0.0-2.0); Eosinophils # (auto) 0.1 10 ^3/uL (0-0.8); Eosinophils % (auto) 0.7 % (0.0-7.0); Hematocrit 39.1 % (36.0-46.0); Hemoglobin 13.2 g/dL (12.2-16.2); Lymphocytes # (auto) 2.7 10 ^3/uL (0.4-5.4); Lymphocytes % (auto) 23.3 % (10.0-50.0); Mean Corpuscular Hemoglobin 30.7 pg (28.0-32.0); Mean Corpuscular Hgb Conc. 33.8 g/dL (32.0-36.0); Mean Corpuscular Volume 90.7 fL (80.0-100.0); Monocytes # (auto) 0.9 10 ^3/uL (0-1.3); Monocytes % (auto) 7.7 % (0.0-12.0); Neutrophils # (auto) 7.9 10 ^3/uL (1.6-8.6); Neutrophils % (auto) 68.1 % (37.0-80.0); Nucleated Red Blood Cells % 0.1 %; Platelet Count (auto) 270 10^3/uL (140-450); Red Blood Cells 4.31 10^6/uL (4.0-5.20); Red Cell Distribution Width 14.2 % (11.8-14.3); White Blood Cell 11.6 10^3/uL (4.4-10.8)
[2024-11-28 06:49] LABS: Sodium 137 mmol/L (136-145)
[2024-11-28 06:50] LABS: Anion Gap 6 (5-15); Calcium 8.7 mg/dL (8.7-10.4)
[2024-11-28 06:55] LABS: BUN/Creatinine Ratio 21.4 (10.0-20.0); Blood Urea Nitrogen 15 mg/dL (9-23)
[2024-11-28 07:04] LABS: Carbon Dioxide 36 mmol/L (20-31); Chloride 95 mmol/L (98-107); Glucose 193 mg/dL (74-106); Potassium 3.3 mmol/L (3.5-5.1)
[2024-11-28] MEDS: POTASSIUM EFFERVESENT TAB 25 MEQ PO ONE (09:46)
[2024-11-28] MEDS: predniSONE 20 MG TAB PO SCH (09:47)
--- NOTE | 2024-11-28 20:44 | DVHPNRES ---
Progress Note Date Seen: November 28, 2024 Resident Creating Document: ABRAHAM GARCIA RESIDENT Medical Necessity Reason Pt with a Central, PICC or Fol: Yes The following are medically ne: PICC Line, Stauffer Catheter Subjective Review of Systems Patient was seen and examined on the bedside. Extubated on 11/18/2024 and currently she is alert and oriented x3. Patient is afebrile for last 48 hours and 24 hours T-max is 98.1. Patient is on consistent carbohydrate diet Discharge was held yesterday because of hypokalemia Today patient is discharged to SNF for rehab Objective vital signs Vital Sign Date Time Temp Pulse Resp B/P (MAP) Pulse Ox O2 Delivery O2 Flow Rate FiO2 11/28/24 19:38 80 18 98 11/28/24 19:38 Nasal Cannula* 2 28 11/28/24 16:44 98.6 106/68 (81) 98.6 Total Intake and Output 11/27/24 11/27/24 11/28/24 15:00 23:00 07:00 Intake Total 700 ml 240 ml Output Total 1050 ml 300 ml Balance -350 ml -60 ml medications Current Medications Medications Dose Ordered Sig/Purvi Route Start Time Stop Time Status Last Admin Dose Admin Vancomycin HCl 200 ml @ 200 mls/hr Q12HR IV 11/12/24 10:00 UNV Examination Physical examination: General Appearance: Alert, Oriented X3, Cooperative, mild distress and on 2L nasal canula HEENT: Atraumatic, PERRLA, EOMI, Mucous membrane moist/pink Respiratory: Clear to auscultation, Normal air movement Cardiovascular: Regular rate, Normal S1, Normal S2, No murmurs, no chest wall tenderness Abdominal: Normal bowel sounds, Soft, No tenderness, No hepatospenomegaly, No masses Extremities: No clubbing, No cyanosis, No edema, Normal pulses, No tenderness/swelling Skin: Unstageable ulcer in the right buttock, No rashes, No significant lesion Neuro: Normal speech, Strength at 5/5 X4 ext, Normal tone, Sensation intact, grossly intact cranial nerves Psych/Mental Status: Mental status NL, Mood NL laboratory and microbiology Laboratory Tests 11/28/24 11:31 11/28/24 05:27 Test 11/28/24 05:27 Range/Units Serum Glucose 193 H 74-106 mg/dL Microbiology Date/Time Source Procedure Growth Status 11/12/24 18:52 Nose MRSA Screen - Final Complete 11/12/24 12:23 Voided Urine Urine Culture - Final Complete 11/12/24 10:12 Sputum Gram Stain - Final Complete 11/12/24 10:12 Respiratory Culture - Final Methicillin Resistant S.aureus Complete 11/12/24 08:49 Blood Blood Culture - Final NO GROWTH AFTER 5 DAYS OF INCUBATION. Complete Labs and/or images reviewed: Labs reviewed by me, Image(s) reviewed by me Problem List/Assessment/Plan Problem List/Assessment/Plan Assessment and Plan: Neurology Acute metabolic encephalopathy likely due to sepsis resolved - currently patient is alert and oriented x3 Respiratory Acute on chronic hypoxic respiratory failure Possible COPD,exacerbation MINOO on cpap ?Pneumonia due to MRSA Bilateral pulmonary edema - ABG compensated - chest x-ray shows bilateral interstitial opacities - DuoNebs q.6 hours - sputum cultures growing MRSA - IV ceftriaxone 1 gm daily ( started on 11/27/23)/ Previously on MRSA since 11/15/24 - sputum cultures growing MRSA - Prednisone 40 mg daily - CPAP at nighttime Cardiovascular Acute on chronic heart failure with preserved ejection fraction Right upper arm DVT Hypertensive heart disease - ECHO 10/2024 shows hyperdynamic systolic function. LVEF was around 76% - BNP normal - Right upper arm venous Doppler showed no flow in axillary and the subclavian vein - Eloquis 5 mg bid - Losartan 50 mg p.o. daily - IV hydralazine 10 mg q.6 p.r.n. 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 Full code Critical care time spent excluding procedures: 45 minutes Plan discussed with Dr. Osorio Plan discussed with: Patient, Daughter, Other My Orders My Orders Orders - ABRAHAM GARCIA RESIDENT Procedure Category Date Status Time Urinalysis LAB 11/28/24 Logged 04:00 Discharge DISCHARGE 11/28/24 Transmitted 14:43 Dietary Evaluation Review Comments: 1. Suggest formula Osmolite 1.2 @ 50 ml/hr (GOAL). Begin at 10 ml/hr, advance by 10 ml Q4 hrs or as tolerated to goal-rate of 50 ml/hr x 24 hrs 2. If BG becomes uncontrolled, may change to Glucerna 1.2 at same goal-rate 3. Provide free water flushes of 30 ml Q6 hrs (120 ml total); adjust PRN 4. Monitor BMP/lytes and replete to WNL/PRN TF Provision: TF at goal to provide 1200 ml total volume, 1440 kcal (+211 kcal via propofol = 1651 kcal), 66 gm pro, 189 gm CHO, 0 gm fiber, 984 ml H20 (meets 100% est. kcal needs, 100% est. pro needs) Expected Outcomes/Goals: Adequate enteral infusion, weight maintenance. ABRAHAM GARCIA RESIDENT November 28, 2024 20:44
== END 2024-11-28 20:02 | DRG 870 ==
LOC: EDBD 08:23 → ER 08:23 → OVERFLOW 12:48 → ICU WEST 18:30 → ICU CENTRL 11-20 18:04 → DOU IN ICU 11-20 18:27 → TELE-EAST 11-22 13:25 → EAST 11-23 20:25
PROVIDERS: ADMIT Internal Medicine; ATTEND Internal Medicine
PROC: 0BH17EZ Insertion of Endotracheal Airway into Trachea, Via Natural or Artificial Opening (ICD-10-PCS; principal; 2024-11-12)
PROC: 5A1955Z Respiratory Ventilation, Greater than 96 Consecutive Hours (ICD-10-PCS; 2024-11-12)
PROC: 02HV33Z Insertion of Infusion Device into Superior Vena Cava, Percutaneous Approach (ICD-10-PCS; 2024-11-12)
PROC: B548ZZA Ultrasonography of Superior Vena Cava, Guidance (ICD-10-PCS; 2024-11-12)
PROC: 02HV33Z Insertion of Infusion Device into Superior Vena Cava, Percutaneous Approach (ICD-10-PCS; 2024-11-14)
PROC: B548ZZA Ultrasonography of Superior Vena Cava, Guidance (ICD-10-PCS; 2024-11-14)
DX: A41.02 Sepsis due to Methicillin resistant Staphylococcus aureus (principal); G93.41 Metabolic encephalopathy; J96.21 Acute and chronic respiratory failure with hypoxia; I50.33 Acute on chronic diastolic (congestive) heart failure; J15.212 Pneumonia due to Methicillin resistant Staphylococcus aureus; I82.621 Acute embolism and thrombosis of deep veins of right upper extremity; J44.0 Chronic obstructive pulmonary disease with (acute) lower respiratory infection; J44.1 Chronic obstructive pulmonary disease with (acute) exacerbation; G93.1 Anoxic brain damage, not elsewhere classified; J81.1 Chronic pulmonary edema; G47.33 Obstructive sleep apnea (adult) (pediatric); E11.42 Type 2 diabetes mellitus with diabetic polyneuropathy; E66.01 Morbid (severe) obesity due to excess calories; K76.0 Fatty (change of) liver, not elsewhere classified; I11.0 Hypertensive heart disease with heart failure; K21.9 Gastro-esophageal reflux disease without esophagitis; R65.20 Severe sepsis without septic shock; E78.5 Hyperlipidemia, unspecified; E87.6 Hypokalemia; G25.0 Essential tremor; M81.0 Age-related osteoporosis without current pathological fracture; G43.909 Migraine, unspecified, not intractable, without status migrainosus; G56.00 Carpal tunnel syndrome, unspecified upper limb; Z93.3 Colostomy status; Z79.1 Long term (current) use of non-steroidal anti-inflammatories (NSAID); Z79.4 Long term (current) use of insulin; Z79.82 Long term (current) use of aspirin; Z79.899 Other long term (current) drug therapy; Z90.710 Acquired absence of both cervix and uterus; Z82.49 Family history of ischemic heart disease and other diseases of the circulatory system; Z82.5 Family history of asthma and other chronic lower respiratory diseases; Z79.84 Long term (current) use of oral hypoglycemic drugs; Z87.442 Personal history of urinary calculi; Z68.38 Body mass index [BMI] 38.0-38.9, adult
CPT/HCPCS: 31500; 36415; 36569; 36600; 70450; 71045; 74176; 76937; 80048; 80053; 80202; 81001; 82010; 82140; 82565; 82805; 82962; 83605; 83735; 83880; 83930; 84100; 84132; 84439; 84443; 84480; 84484; 85007; 85025; 85027; 85610; 85730; 87040; 87070; 87077; 87081; 87086; 87186; 87205; 92610; 93005; 93971; 94002; 94003; 94640; 96365; 96372; 96375; 97110; 97163; 97530; 99291; G0378; J1815; J1956; J2470; J2543; J2704; J3480; J3490